=== PATIENT | female | born 1955 | race Caucasian/White ===

== ENCOUNTER → 2019-07-04 08:53 | Outpatient (CLI) | payer OTHER, SELFPAY ==
[2019-07-04 09:32] LABS: Add Manual Diff / Slide Review NO; Basophils Absolute Auto 0 /uL (0-100); Basophils Percent Auto 0.8 % (0-2); Eosinophils Absolute Auto 0 /uL (0-450); Eosinophils Percent Auto 0.6 % (2-4); Hemoglobin 13.6 g/dL (12.0-16.0); Lymphocytes Absolute Auto 1100 /uL (1100-4500); Lymphocytes Percent Auto 28.5 % (25-40); Mean Corpuscular HGB Conc 34.9 % (30-36); Mean Corpuscular Hemoglobin 31.2 PG (26-34); Mean Corpuscular Volume 89.3 fL (80-100); Monocytes Absolute Auto 400 /uL (0-900); Monocytes Percent Auto 9.7 % (3-14); Neutrophils Absolute Auto 2300 /uL (1500-7000); Neutrophils Percent Auto 60.4 % (50-75); Platelet Count 128 X10^3/uL (150-400); Red Blood Cell Count 4.37 X10^6/uL (4.0-5.2); Red Cell Distribution Width 12.6 % (11.6-14.8); White Blood Cell Count 3.9 X10^3/uL (4.5-11.0)
[2019-07-04 09:46] LABS: Alanine Aminotransferase 28 IU/L (<35); Albumin 4.3 g/dL (3.5-5.0); Albumin Globulin Ratio 1.5 (1.0-2.8); Alkaline Phosphatase 52 U/L (38-126); Aspartate Aminotransferase 42 IU/L (14-36); BUN Creatinine Ratio 18.6 (6-22); Bilirubin Total 1.5 mg/dL (0.2-1.3); Blood Urea Nitrogen 13 mg/dL (7-17); Carbon Dioxide 27 mmol/L (22-32); Chloride 103 mmol/L (98-107); Cholesterol 168 mg/dL (140-199); Estimated Glomerular Filt Rate > 60.0 mL/min (>60); Globulin 2.9 g/dL (1.7-4.1); Glucose 88 mg/dL (80-110); HDL Cholesterol 47 mg/dL (40-60); HEMOLYSIS < 15 (0-50); LDL Cholesterol Calculated 111 mg/dL (<100); Potassium 3.7 mmol/L (3.4-5.1); Sodium 140 mmol/L (137-145); Total Protein 7.2 g/dL (6.3-8.2); Triglycerides 49 mg/dL (35-150)
== END ==
PROVIDERS: PCP Family Medicine; Referring Provider Family Medicine; Visit Provider Family Medicine
DX: Z12.11 Encounter for screening for malignant neoplasm of colon (principal); Z13.220 Encounter for screening for lipoid disorders; E55.9 Vitamin D deficiency, unspecified; E80.6 Other disorders of bilirubin metabolism
CPT/HCPCS: 36415; 80053; 80061; 82306; 84443; 85025

== ENCOUNTER → 2019-07-07 13:19 | Outpatient (CLI) | payer OTHER, SELFPAY ==
[2019-07-10 21:44] LABS: Fecal Immunochemical Test NOT DETECTED (NOT DETECTED)
== END ==
PROVIDERS: PCP Family Medicine; Referring Provider Family Medicine; Visit Provider Family Medicine
DX: Z12.11 Encounter for screening for malignant neoplasm of colon (principal); Z13.220 Encounter for screening for lipoid disorders; E55.9 Vitamin D deficiency, unspecified; E80.6 Other disorders of bilirubin metabolism
CPT/HCPCS: 82274

== ENCOUNTER → 2020-08-28 14:25 | Outpatient (CLI) | payer OTHER, SELFPAY ==
[2020-08-28] MEDS: COVID-19 VACC #1, MRNA(MOD) 100 MCG/0.5 ML VIAL IM (14:32)
== END ==
PROVIDERS: PCP Family Medicine; Visit Provider Internal Medicine
DX: Z23 Encounter for immunization (principal)
CPT/HCPCS: 0011A; 91301

== ENCOUNTER → 2020-09-25 14:34 | Outpatient (CLI) | payer OTHER, SELFPAY ==
[2020-09-25] MEDS: COVID-19 VACC #2, MRNA(MOD) 100 MCG/0.5 ML VIAL IM (14:45)
== END ==
PROVIDERS: PCP Family Medicine; Visit Provider Internal Medicine
DX: Z23 Encounter for immunization (principal)
CPT/HCPCS: 0012A; 91301

== ENCOUNTER → 2021-01-27 14:15 | Outpatient (CLI) | payer OTHER, SELFPAY ==
[2021-01-27 17:32] LABS: COVID19 -Nasal RAPID Negative (Negative)
== END ==
PROVIDERS: PCP Family Medicine; Visit Provider Physician Assistant
DX: Z20.822 Contact with and (suspected) exposure to COVID-19 (principal)
CPT/HCPCS: 87635

== ENCOUNTER → 2021-11-18 08:30 | Outpatient (CLI) | payer MEDICARE, OTHER, SELFPAY ==
[2021-11-18 09:20] LABS: Add Manual Diff / Slide Review NO; Basophils Absolute Auto 0 /uL (0-100); Basophils Percent Auto 0.5 % (0-2); Eosinophils Absolute Auto 0 /uL (0-450); Eosinophils Percent Auto 0.9 % (2-4); Hematocrit 39.6 % (36-46); Hemoglobin 13.8 g/dL (12.0-16.0); Lymphocytes Absolute Auto 1100 /uL (1100-4500); Lymphocytes Percent Auto 21.4 % (25-40); Mean Corpuscular HGB Conc 34.9 % (30-36); Mean Corpuscular Hemoglobin 31.4 PG (26-34); Mean Corpuscular Volume 89.8 fL (80-100); Monocytes Absolute Auto 400 /uL (0-900); Monocytes Percent Auto 8.4 % (3-14); Neutrophils Absolute Auto 3500 /uL (1500-7000); Neutrophils Percent Auto 68.8 % (50-75); Platelet Count 123 X10^3/uL (150-400); Red Blood Cell Count 4.41 X10^6/uL (4.0-5.2); Red Cell Distribution Width 12.4 % (11.6-14.8)
[2021-11-18 09:58] LABS: Alanine Aminotransferase 23 IU/L (<35); Albumin 4.4 g/dL (3.5-5.0); Albumin Globulin Ratio 1.8 (1.0-2.8); Alkaline Phosphatase 49 U/L (38-126); Aspartate Aminotransferase 37 IU/L (14-36); BUN Creatinine Ratio 23.2 (6-22); Bilirubin Total 1.1 mg/dL (0.2-1.3); Blood Urea Nitrogen 16 mg/dL (7-17); Calcium 8.7 mg/dL (8.4-10.2); Carbon Dioxide 27 mmol/L (22-32); Chloride 104 mmol/L (98-107); Cholesterol 180 mg/dL (140-199); Estimated Glomerular Filt Rate > 60 mL/min (>60); Globulin 2.5 g/dL (1.7-4.1); Glucose 96 mg/dL (80-110); HDL Cholesterol 57 mg/dL (40-60); HEMOLYSIS < 15 (0-50); LDL Cholesterol Calculated 112 mg/dL (<100); Potassium 4.1 mmol/L (3.4-5.1); Sodium 139 mmol/L (137-145); Total Protein 6.9 g/dL (6.3-8.2); Triglycerides 56 mg/dL (35-150)
[2021-11-18 10:12] LABS: Vitamin D 25 Hydroxy (D3) 66.2 ng/mL (30.0-100.0)
[2021-11-18 13:00] LABS: Free T3, Triiodothyronine Free 3.53 pg/mL (2.77-5.27); Free T4, Direct Thyroxine 0.96 ng/dL (0.78-2.19)
[2021-11-18 13:13] LABS: Thyroid Stimulating Hormone 3.26 uIU/mL (0.47-4.68)
== END ==
PROVIDERS: PCP Nurse Practitioner; Referring Provider Nurse Practitioner; Visit Provider Nurse Practitioner
DX: Z00.00 Encounter for general adult medical examination without abnormal findings (principal); E80.6 Other disorders of bilirubin metabolism; Z13.29 Encounter for screening for other suspected endocrine disorder; E56.9 Vitamin deficiency, unspecified; Z13.220 Encounter for screening for lipoid disorders; Z86.39 Personal history of other endocrine, nutritional and metabolic disease; E78.5 Hyperlipidemia, unspecified
CPT/HCPCS: 36415; 80053; 80061; 82306; 84439; 84443; 84481; 85025

== ENCOUNTER → 2021-12-25 08:08 | Outpatient (CLI) | payer MEDICARE, OTHER, SELFPAY ==
--- NOTE | 2021-12-25 08:12 | DI.MG.S_ITS ---
BILATERAL DIGITAL SCREENING MAMMOGRAM 3D/2D WITH CAD: 12/25/2021 CLINICAL: Routine screening. No prior exams were available for comparison. The tissue of both breasts is heterogeneously dense. This may lower the sensitivity of mammography. Current study was also evaluated with a Computer Aided Detection (CAD) system. No significant masses, calcifications, or other findings are seen in either breast. IMPRESSION: NEGATIVE There is no mammographic evidence of malignancy. A 1 year screening mammogram is recommended. Based on the Tyrer Cuzick model (a risk assessment model) the patient's lifetime risk is 8.3% and her 10 year risk is 4.0%. According to the ACR, ACS, and NCCN guidelines, an annual breast MRI exam along with mammogram is recommended if the patient's lifetime risk is 20% or greater. This exam was interpreted at Station ID: [id number]. NOTE: For mammograms, a report in lay terms will be sent to the patient. Approximately 15% of breast malignancies will not be visualized mammographically. In the management of a palpable breast mass, a negative mammogram must not discourage biopsy of a clinically suspicious lesion. Electronically Signed By: Madison centeno/luciano:12/25/2021 11:39:15 letter sent: Normal Exam ACR BI-RADS Category 1: Negative 3341F
== END ==
PROVIDERS: PCP Nurse Practitioner; Referring Provider Nurse Practitioner; Visit Provider Nurse Practitioner
DX: Z12.31 Encounter for screening mammogram for malignant neoplasm of breast (principal)
CPT/HCPCS: 77063; 77067

== ENCOUNTER → 2022-01-14 07:39 | Outpatient (CLI) | payer MEDICARE, OTHER, SELFPAY ==
[2022-01-14 08:43] LABS: Alanine Aminotransferase 17 IU/L (<35); Albumin Globulin Ratio 1.7 (1.0-2.8); Alkaline Phosphatase 55 U/L (38-126); Aspartate Aminotransferase 29 IU/L (14-36); Bilirubin Total 0.8 mg/dL (0.2-1.3); Bilirubin Unconjugated 0.9 mg/dL (0.0-1.1); Globulin 2.4 g/dL (1.7-4.1); HEMOLYSIS < 15 (0-50); Total Protein 6.4 g/dL (6.3-8.2)
== END ==
PROVIDERS: PCP Nurse Practitioner; Referring Provider Nurse Practitioner; Visit Provider Nurse Practitioner
DX: E80.4 Gilbert syndrome (principal); R79.89 Other specified abnormal findings of blood chemistry
CPT/HCPCS: 36415; 80076

== ENCOUNTER → 2022-03-09 09:13 | Outpatient (CLI) | payer MEDICARE, OTHER, SELFPAY ==
[2022-03-09 12:32] LABS: COVID19 -Nasal RAPID Negative (Negative)
== END ==
PROVIDERS: PCP Nurse Practitioner; Visit Provider Surgery
DX: Z20.822 Contact with and (suspected) exposure to COVID-19 (principal); Z01.812 Encounter for preprocedural laboratory examination
CPT/HCPCS: 87635; C9803

== ENCOUNTER 2022-03-10 09:01 | Day surgery (SDC) | payer MEDICARE, OTHER, SELFPAY ==
[2022-03-10 09:16] VITALS: BP 129/79; PULSE 60; RESP 16; TEMP 36.6; O2SAT 99; BMI 22.6
--- NOTE | 2022-03-10 09:57 | PM.HP.1 ---
History of Present Illness History of Present Illness Date Patient Seen: 03/10/22 Time Patient Seen: 09:57 Chief complaint: SDC Narrative: The patient presents for colorectal screening. She had previously normal colonoscopy 17 years ago. No personal or family history of colon cancer. On further history denies any recent gastrointestinal symptoms. No nausea, vomiting, abdominal pain, loss of appetite, unexplained weight loss, change in bowel habits, diarrhea, constipation, melena, hematochezia, or bright red blood per rectum. Patient History Medical History De Quervain's fracture of right wrist (~2017) Elevated LDL cholesterol level Gilbert syndrome Gluten intolerance History of gluten sensitivity Hyperbilirubinemia Plantar warts (~2018) Post herpetic neuralgia (12/2019) Screening for breast cancer Screening for hyperlipidemia Screening for thyroid disorder Thrombocytopenia Vitamin deficiency, unspecified Surgical History Anesthesia H/O section (~1981) H/O knee surgery (~1991) Tibia fracture (~2010) Family & Social History Family History Father Hyperlipidemia CAD (coronary artery disease) Diabetes mellitus Mother COPD (chronic obstructive pulmonary disease) Stroke Dementia Sister History of heart disease Social History: household members spouse Tobacco & Substance use: Smoking Status Never smoker alcohol intake current alcohol intake frequency a few times a month Substance Use Type marijuana Meds Home Medications and Allergies Home Medications Medication Instructions Recorded Confirmed Type multivitamin 1 tab PO DAILY 06/20/19 03/10/22 History Estriol 1mg Vaginal Yumiko See Rx Instructions .Route 01/26/22 03/10/22 Rx .COMPLEX #30 ea sodium,potassium,mag sulfates 17.5 See Rx Instructions PO .COMPLEX 02/23/22 Rx gram-3.13 gram-1.6 gram oral soln #354 mL (Suprep Bowel Prep Kit) Allergies Allergy/AdvReac Type Severity Reaction Status Date / Time No Known Drug Allergies Allergy Verified 03/10/22 09:30 Exam Vital Signs (past 8 hours): - 03/10/22 09:16 Temperature 97.8 F Pulse Rate 60 Respiratory Rate 16 Blood Pressure 129/79 Pulse Oximetry 99 Oxygen Delivery Method Room Air Oxygen Delivery Method Room Air Narrative Exam Narrative: General adult woman alert oriented no acute distress Chest nonlabored respiration Assessment & Plan Assessment & Plan narrative: The patient requires colorectal screening and colonoscopy is recommended. Technical details were discussed. Risks, benefits, alternatives explained. Risks including but not limited to myocardial infarction, aspiration, bleeding, pain, missed lesion, incomplete examination, need for further radiographic studies, colonic perforation, and need for major abdominal surgery were discussed. All questions were answered to their satisfaction, and they are in agreement with this plan. Time Spent With Patient Critical Care time: I spent a total of [] minutes of critical care time on this patient's care today; this time is exclusive of procedural time.
[2022-03-10] MEDS: MIDAZOLAM 5 MG/5 ML VIAL IV (10:27)
[2022-03-10] MEDS: fentaNYL 100 MCG/2 ML INJ 150 MCG IV (10:27)
--- NOTE | 2022-03-10 10:44 | P.OP.COLON_ITS ---
Operative Date/Time/Diagnoses Date of procedure: 03/10/22 Time of procedure: 10:44 Pre-op diagnosis: Screening Post-op diagnosis: same Procedure & Clinicians Study performed: Colonoscopy Same procedure as scheduled: Yes Indications: Screening Surgeon: Isra Little Procedure Notes Procedure in detail: Medications: Conscious sedation using 5 mg IV midazolam and 150 mcg IV of fentanyl The history and physical was performed/updated and the patient is ASA class is 1. The procedure was discussed in detail with the patient. Potential risks complications including infection, bleeding, missed diagnosis, perforation, need for surgery, and were explained. Their questions were answered and informed consent was obtained. Patient was brought to the procedure room and placed standard monitoring equipment. The patient's vital signs were monitored continuously throughout the entire procedure. Prior to starting time-out was performed. The patient was placed in the left lateral recumbent position. Procedural sedation was adminis tered. Examination began with a thorough inspection of the perianal area there was no evidence of fissures, fistulae, external hemorrhoids or cutaneous malignancy. The colonoscopy scope was then placed into the anal canal and was advanced to the cecum, which was identified by the ileocecal valve, the appendiceal orifice and the confluence of the taenia. The scope was then slowly withdrawn examining colon thoroughly in all directions, irrigating it of any residual stool. FINDINGS 1. No masses or polyps 2. Sigmoid-diverticulosis mild 3. Internal hemorrhoids The patient tolerated the procedure well. They will be discharged once criteria are met. The prep was of good/excellent quality. The withdrawl time was 6 minutes. The sedation time was 22 minutes. Specimen(s): none sent Complications: none Impression: Normal colon Post-procedure Recommendations: Colonoscopy in 10 years and High fiber diet Disposition: same day surgery
[2022-03-10 10:48] VITALS: BP 96/68; PULSE 53; RESP 18; TEMP 36.2; O2SAT 100
[2022-03-10 10:52] VITALS: BP 104/66; PULSE 54; RESP 10; O2SAT 100
[2022-03-10 10:57] VITALS: BP 99/69; PULSE 63; RESP 12; O2SAT 100
[2022-03-10 11:00] VITALS: BP 104/69; PULSE 63; RESP 16; TEMP 36.1; O2SAT 99
== END 2022-03-10 11:13 | disposition home or self-care (01) ==
PROVIDERS: PCP Nurse Practitioner; Referring Provider Surgery; Visit Provider Surgery
PROC: 0DJD8ZZ Inspection of Lower Intestinal Tract, Via Natural or Artificial Opening Endoscopic (ICD-10-PCS; CPT 45378; principal; 2022-03-10 10:00)
DX: Z12.11 Encounter for screening for malignant neoplasm of colon (principal); K57.30 Diverticulosis of large intestine without perforation or abscess without bleeding; K64.8 Other hemorrhoids
CPT/HCPCS: G0121; 99152; J2250; J3010

== ENCOUNTER → 2022-06-22 15:28 | Outpatient (CLI) | payer MEDICARE, OTHER, SELFPAY | PROVIDERS: PCP Nurse Practitioner; Referring Provider Nurse Practitioner; Visit Provider Nurse Practitioner | DX: Z13.820 Encounter for screening for osteoporosis (principal); Z78.0 Asymptomatic menopausal state; M85.851 Other specified disorders of bone density and structure, right thigh | CPT/HCPCS: 77080 ==

== ENCOUNTER → 2022-07-06 11:04 | Outpatient (CLI) | payer MEDICARE, OTHER, SELFPAY ==
[2022-07-06 19:28] LABS: Hep C Virus Ab w/Reflex Quant NEGATIVE s/c (NEGATIVE)
== END ==
PROVIDERS: PCP Nurse Practitioner; Referring Provider Nurse Practitioner; Visit Provider Nurse Practitioner
DX: Z11.59 Encounter for screening for other viral diseases (principal)
CPT/HCPCS: 36415; 86803

== ENCOUNTER → 2022-10-05 12:30 | Outpatient (CLI) | payer MEDICARE, OTHER, SELFPAY | PROVIDERS: PCP Nurse Practitioner; Visit Provider Nurse Practitioner Family | DX: J02.9 Acute pharyngitis, unspecified (principal) | CPT/HCPCS: 87070 ==

== ENCOUNTER → 2023-01-25 07:39 | Outpatient (CLI) | payer MEDICARE, OTHER, SELFPAY ==
--- NOTE | 2023-01-25 07:40 | DI.MG.S_ITS ---
BILATERAL DIGITAL SCREENING MAMMOGRAM 3D/2D WITH CAD: 01/25/2023 CLINICAL: Routine screening. Comparison is made to exam dated: 12/25/2021 mammogram - [facility]. Both breasts are heterogeneously dense, which may obscure small masses (category c / 51-75% glandular tissue). Current study was also evaluated with a Computer Aided Detection (CAD) system. No significant masses, calcifications, or other findings are seen in either breast. There has been no significant interval change. IMPRESSION: NEGATIVE There is no mammographic evidence of malignancy. A 1 year screening mammogram is recommended. Based on the Tyrer Cuzick model (a risk assessment model) the patient's lifetime risk is 7.9% and her 10 year risk is 4.0%. According to the ACR, ACS, and NCCN guidelines, an annual breast MRI exam along with mammogram is recommended if the patient's lifetime risk is 20% or greater. This exam was interpreted at Station ID: [id number]. NOTE: For mammograms, a report in lay terms will be sent to the patient. Approximately 15% of breast malignancies will not be visualized mammographically. In the management of a palpable breast mass, a negative mammogram must not discourage biopsy of a clinically suspicious lesion. Electronically Signed By: Hari patino/luciano:01/25/2023 17:54:51 letter sent: Normal Exam ACR BI-RADS Category 1: Negative 3341F
== END ==
PROVIDERS: PCP Nurse Practitioner; Referring Provider Nurse Practitioner; Visit Provider Nurse Practitioner
DX: Z12.31 Encounter for screening mammogram for malignant neoplasm of breast (principal)
CPT/HCPCS: 77063; 77067

== ENCOUNTER 2023-02-03 17:05 | Emergency (ER) | payer MEDICARE, OTHER, SELFPAY ==
[2023-02-03 17:08] VITALS: BP 164/80; PULSE 60; RESP 18; TEMP 36.7; O2SAT 99; BMI 23.3
--- NOTE | 2023-02-03 17:12 | DI.RAD.S_ITS ---
PROCEDURE: XR KNEE LT 3V INDICATIONS: injury/pain TECHNIQUE: 3 views of the knee were acquired. COMPARISON: None. FINDINGS: Bones: Postsurgical changes of the tibia with 2 screws present. Hardware appears intact. No definite acute fracture or dislocation identified. Soft tissues: No joint effusion. No suspicious soft tissue calcifications. IMPRESSION: No acute fracture identified. If symptoms persist, follow-up radiographs and/or CT may be helpful for further evaluation. Dictated by: Silvio Parmar M.D. on 02/03/2023 at 18:05 Approved by: Silvio Parmar M.D. on 02/03/2023 at 18:06
== END 2023-02-03 19:22 | disposition left against medical advice (07) ==
PROVIDERS: Emergency Provider Emergency Medicine; PCP Nurse Practitioner
DX: S89.91XA Unspecified injury of right lower leg, initial encounter (principal); W13.8XXA Fall from, out of or through other building or structure, initial encounter
CPT/HCPCS: 73562; 99283

== ENCOUNTER → 2023-06-21 08:26 | Outpatient (CLI) | payer MEDICARE, OTHER, SELFPAY ==
[2023-06-21 09:11] LABS: Add Manual Diff / Slide Review NO; Basophils Absolute Auto 0 /uL (0-100); Basophils Percent Auto 0.9 % (0-2); Eosinophils Absolute Auto 0 /uL (0-450); Eosinophils Percent Auto 0.7 % (2-4); Hemoglobin 14.2 g/dL (12.0-16.0); Lymphocytes Absolute Auto 1500 /uL (1100-4500); Lymphocytes Percent Auto 34.3 % (25-40); Mean Corpuscular HGB Conc 34.6 % (30-36); Mean Corpuscular Hemoglobin 31.5 PG (26-34); Mean Corpuscular Volume 90.9 fL (80-100); Monocytes Absolute Auto 400 /uL (0-900); Monocytes Percent Auto 9.9 % (3-14); Neutrophils Absolute Auto 2300 /uL (1500-7000); Neutrophils Percent Auto 54.2 % (50-75); Platelet Count 138 X10^3/uL (150-400); Red Blood Cell Count 4.51 X10^6/uL (4.0-5.2); Red Cell Distribution Width 11.9 % (11.6-14.8); White Blood Cell Count 4.3 X10^3/uL (4.5-11.0)
[2023-06-21 09:28] LABS: Alanine Aminotransferase 25 IU/L (<35); Albumin 4.3 g/dL (3.5-5.0); Albumin Globulin Ratio 1.5 (1.0-2.8); Alkaline Phosphatase 35 U/L (38-126); Aspartate Aminotransferase 34 IU/L (14-36); BUN Creatinine Ratio 28.4 (6-22); Bilirubin Total 0.9 mg/dL (0.2-1.3); Blood Urea Nitrogen 19 mg/dL (7-17); Calcium 9.3 mg/dL (8.4-10.2); Carbon Dioxide 28 mmol/L (22-32); Chloride 103 mmol/L (98-107); Cholesterol 173 mg/dL (140-199); Estimated Glomerular Filt Rate > 60 mL/min (>60); Globulin 2.9 g/dL (1.7-4.1); Glucose 94 mg/dL (80-110); HDL Cholesterol 55 mg/dL (40-60); HEMOLYSIS < 15 (0-50); LDL Cholesterol Calculated 110 mg/dL (<100); Potassium 4.3 mmol/L (3.4-5.1); Sodium 138 mmol/L (137-145); Total Protein 7.2 g/dL (6.3-8.2); Triglycerides 42 mg/dL (35-150)
[2023-06-21 09:51] LABS: Free T3, Triiodothyronine Free 3.35 pg/mL (2.77-5.27)
[2023-06-21 10:05] LABS: Thyroid Stimulating Hormone 6.66 uIU/mL (0.47-4.68)
== END ==
PROVIDERS: Family Provider Nurse Practitioner; PCP Nurse Practitioner; Referring Provider Nurse Practitioner; Visit Provider Nurse Practitioner
DX: I73.01 Raynaud's syndrome with gangrene (principal); E78.00 Pure hypercholesterolemia, unspecified; M85.80 Other specified disorders of bone density and structure, unspecified site; E80.4 Gilbert syndrome; D69.6 Thrombocytopenia, unspecified; R79.89 Other specified abnormal findings of blood chemistry; Z79.899 Other long term (current) drug therapy
CPT/HCPCS: 36415; 80053; 80061; 84439; 84443; 84481; 85025

== ENCOUNTER 2023-07-26 08:15 | Outpatient (RCR) | payer MEDICARE, OTHER, SELFPAY ==
--- NOTE | 2023-06-01 15:58 | PT.OIE ---
Current Diagnoses Synovial cyst of popliteal space [Gauthier], unspecified knee (06/01/23) Strain of unspecified muscle(s) and tendon(s) at lower leg level, left leg, initial encounter (06/01/23) Past Medical History (Last Updated 07/09/22 @ 08:58 by CORDELL Nassar) De Quervain's fracture of right wrist (~2017) Elevated LDL cholesterol level Gilbert syndrome Gluten intolerance History of gluten sensitivity Hyperbilirubinemia Osteopenia determined by x-ray Plantar warts (~2018) Post herpetic neuralgia (12/2019) Postmenopausal HRT (hormone replacement therapy) Raynaud's disease with gangrene Screening for breast cancer Screening for hyperlipidemia Screening for thyroid disorder Thrombocytopenia Vitamin deficiency, unspecified Past Surgical History (Last Reviewed 07/09/22 @ 08:39 by CORDELL Nassar) Anesthesia H/O section (~1981) H/O knee surgery (~1991) Tibia fracture (~2010) Visit Care Team Role Provider Type CORDELL Nassar Family Provider Advanced Tectonophysicist Primary Care Provider Specialty: Family Practice Address: [address] [place] [address] Email: [email or web address] Yvonne Blanca PA-C Attending Provider Advanced Tectonophysicist Referring Provider Specialty: Medical Wound Care Address: [address] [place] [address], [facility] Email: [email or web address] Physical Therapy Initial Evaluation PT-OP-A Visit Information Start: 06/01/23 10:31 Freq: Status: Active Protocol: Document 06/01/23 10:31 NM (Rec: 06/01/23 11:18 NM [id number]) Out-Patient Physical Therapy Visit Information Visit Information Visit Type Initial Evaluation Visit Note KX modifier after 19 ST/PT visit Visit Start Time 10:30 Visit Stop Time 11:15 Total Visit Minutes 45 Visit Number 1 Evaluation Information Evaluation Date 06/01/23 PT-OP-B Current Condition Start: 06/01/23 10:31 Freq: Status: Active Protocol: Document 06/01/23 10:31 NM (Rec: 06/01/23 11:18 NM [id number]) Current Condition History of Current Condition Onset Date January 2023 Current Complaints L knee History of Current Condition Pt was working with her horse, when he got spooked. She jumped off the mounting block, landing on her L knee in standing. She felt off a pop on her L knee (landed on her feet) on the lateral side, with a varus force. It was swollen and she had limited weight bearing. Came to ED ( did x ray) in January, was given a knee ext brace to wear temporarily, which pt has not been wearing since January. She reports that her pain is intermittent but she still gets occasional pain laterally . She has worse pain walking down hill, unable to run (2 mi /day); she is able to run along side her horse but reports pain. Generally, she reports no pain overall, except in coming to stand is difficult from a squat. Reports popping with knee ext. She reports no instances of her knee buckling or giving out, but does report that sometimes her knee feels like it could. Prior Treatments and Tests L knee PMH: partial ACL tear ( still partial tear), meniscus bucket handle tear (repair), tibial plateau frx with screws ; gauthier's cyst (previous swollen) Radiographs 02/03/23: no acute fracture; no MRI performed Prior Functional Status Baseline Function- ADL's Independent Baseline Function- Mobility Independent Baseline Function- Gait run 2 mi/day (6-8 mi/wk) Baseline Function- Recreation/Hobbies Rides horses Current Functional Impairments (Reported) Functional Limitations- Mobility/Gait unable to run, walk down hills , landing on LLE Functional Limitations- Recreation/ Able to ride horses but must Hobbies dismount on R knee PT-OP-C Subjective Start: 06/01/23 10:31 Freq: Status: Active Protocol: Document 06/01/23 10:31 NM (Rec: 06/01/23 11:18 NM [id number]) OP-PT Subjective Patient Comments Patient Comments see hx above for pt report Patient Questionnaires Lower Extremity Functional Scale LEFS Score 68/80 OP-PT Pain Assessment Pain Assessment Grid Paper Pain Assessment Grid Completed Yes Location L knee Pain Location Details ant knee pain, lateral knee pain Intensity 2 Scale Used Numeric (0 - 10) Description Aching,Dull,Sharp Frequency Intermittent Pain Duration decreased freq since initial injury Radiating Location none, remains local Pain Aggravating Factors ADL's,Activity,Walking,Stair Climbing Pain Alleviating Factors Cold,Heat Other Pain Alleviating Factors patellar tendon brace Home Pain Medication Use Pain Medications Used No PT-OP-E Functional Tests Start: 06/01/23 10:31 Freq: Status: Active Protocol: Document 06/01/23 10:31 NM (Rec: 06/01/23 11:18 NM [id number]) Functional Tests Squat Test Score 10 B squats Comments able to perform deep squat but min pain, knee valgus, heels rise Single Leg Squat Test Score x1 LLE (RLE minimal valgus, better stability, no opposite hip drop) Comment no knee pain reported, demos knee valgus, foot pronation, R hip drop Other Single Leg Stance Score 25 sec LLE Comment demos valgus, mod instability at ankle (RLE 5 sec, more unstable) PT-OP-F Manual Assessment Start: 06/01/23 10:31 Freq: Status: Active Protocol: Document 06/01/23 10:31 NM (Rec: 06/01/23 11:18 NM [id number]) Manual Assessments Soft Tissue Assessment Soft Tissue Mobility Assessment Demos tenderness at posterior knee (hx of gauthier's cyst) with slight, palpable bulge. Joint Mobility Assessment Joint Mobility Assessment No valgus instability, minimal varus instability compared to R knee. Tenderness of L knee lateral joint line. Demos palpable/audible clicking with flexion/extension. No anterior or posterior instability of L knee, comparable to R knee. PT-OP-G Mobility & Gait Start: 06/01/23 10:31 Freq: Status: Active Protocol: Document 06/01/23 10:31 NM (Rec: 06/01/23 11:18 NM [id number]) OP Gait Assessment Comments Gait Comments antalgic Stair Climbing Evaluation Comments Stair Climbing Comments Eccentric control of LLE decreased compared to RLE. Demos mild knee valgus with foot pronation with descent and decreased quad control. PT-OP-H Neuro Start: 06/01/23 10:31 Freq: Status: Active Protocol: Document 06/01/23 10:31 NM (Rec: 06/01/23 11:18 NM [id number]) Sensation Evaluation Gross Sensation Gross Sensation Left LE Impaired Comments Summary Comments Pt demos slightly decreased sensation along L side in L3-4 dermatomes compared to RLE. Intact but decreased PT-OP-J Posture/Palpation/Skin Start: 06/01/23 10:31 Freq: Status: Active Protocol: Document 06/01/23 10:31 NM (Rec: 06/01/23 11:18 NM [id number]) Posture Evaluation Position Standing Evaluation View Anterior Pelvis Posture Neutral Weight Distribution Weight Shifted Right Knee Posture (L) Neutral,(R) Neutral Palpation Assessment Location L knee Palpation Location posterior knee, lateral knee, anterior knee Palpation Findings Soft Tissue Tightness,Muscle Guarding,Tenderness Palpation Details Tenderness along ant knee at patellar tendon, minimal tenderness along lateral joint line. No tenderness along medial joint line. Min tenderness and palpable bulge behind L knee PT-OP-K Range of Motion Start: 06/01/23 10:31 Freq: Status: Active Protocol: Document 06/01/23 10:31 NM (Rec: 06/01/23 11:18 NM [id number]) Hip Goniometric Range of Motion Hip Left Flexion w/Knee Flexed 110 Abduction 25 Internal Rotation 25 External Rotation 30 Right Flexion w/Knee Flexed 100 Abduction 25 Internal Rotation 25 External Rotation 30 Knee Goniometric Range of Motion Knee Left Knee ROM WFL Yes Patient Position Supine Flexion Active (degrees) 130 Flexion Passive (degrees) 135 Extension Active (degrees) 5 Extension Passive (degrees) 0 Comments pain with flex and ext, anahi quad set. Pain with overpressure into flex and ext Right Knee ROM WFL Yes Patient Position Supine Flexion Active (degrees) 130 Flexion Passive (degrees) 140 Extension Active (degrees) 0 Extension Passive (degrees) 2 PT-OP-L Special Tests Start: 06/01/23 10:31 Freq: Status: Active Protocol: Document 06/01/23 10:31 NM (Rec: 06/01/23 11:18 NM [id number]) Special Tests Knee Special Tests Posterior Draw Test Results negative Comments no excessive tibial translation Varus- 25 Degrees Test Results positive Comments minimal translation compared to RLE, no pain reported Varus- 0 Degrees Test Results negative Comments no excessive translation Valgus- 25 Degrees Test Results negative Comments no excessive translation Valgus- 0 Degrees Test Results negative Comments no excessive translation Thessaly Test 20 Degrees Test Results positive (L) Comments reproduces pain and catching in L knee Thessaly Test 5 Degrees Test Results positive (L) Comments reproduces pain and catching in L knee Farshad Test Test Results positive (L) Comments palpable and audible clicking Javed's Test Results negative Comments no excessive tibial translation Anterior Draw Test Results negative Comments no excessive tibial motion PT-OP-M Strength Start: 06/01/23 10:31 Freq: Status: Active Protocol: Document 06/01/23 10:31 NM (Rec: 06/01/23 11:18 NM [id number]) Hip Strength Hip Manual Muscle Testing Left Flexion (L2) 4 Good Extension (S1) 4+ Good+ Abduction 4+ Good+ Adduction 4+ Good+ External Rotation 4+ Good+ Internal Rotation 4+ Good+ Right Flexion (L2) 4 Good Extension (S1) 4+ Good+ Abduction 4+ Good+ Adduction 4+ Good+ External Rotation 4+ Good+ Internal Rotation 4+ Good+ Knee Strength Knee Manual Muscle Testing Right Flexion (S2) 4+ Good+ Extension (L3) 4- Good- Left Flexion (S2) 4- Good- Extension (L3) 4- Good- Comments Extension reproduces pain in posterior knee PT-OP-T Assessment and Plan Start: 06/01/23 10:31 Freq: Status: Active Protocol: Document 06/01/23 10:31 NM (Rec: 06/01/23 11:18 NM [id number]) Physical Therapy Assessment Rehab Potential Rehabilitation Potential Good Evaluation Complexity Number of Personal Factors/Comorbidities 1-2 Number of Body Systems Impaired 1-2 Clinical Presentation at Evaluation Stable Impairments Impairments Activity Tolerance,Balance, Coordination,Functional Activities,Functional Mobility ,Gait,Pain,Posture,ROM, Sensation,Soft Tissue Mobility ,Strength Goals Six Impairment strength, function Short Term Goal (STG) Pt will demonstrate improved eccentric control with eccentric step downs for at least 5 reps with <2/10 pain in order to demonstrate improved quad control, hip strength, and activity tolerance. Group Home Goal (LTG) Pt will demonstrate improved eccentric control with eccentric step downs for at least 10 reps with <2/10 pain in order to demonstrate improved quad control, hip strength, and activity tolerance. LTG Duration 8 weeks Five Impairment strength Short Term Goal (STG) Pt will be able to perform at least 1 rep of single leg squats using good form and without knee valgus compensation in order to demonstrate improved quad control and hip strength for return to running. STG Duration 4 weeks Cnc Milling Machine Operator Goal (LTG) Pt will be able to perform at least 3 rep of single leg squats using good form and without knee valgus compensation in order to demonstrate improved quad control and hip strength for return to running. LTG Duration 8 weeks Four Impairment strength, function Short Term Goal (STG) Pt will demonstrate equal bilateral squats x5 reps without compensation in order to show improved L knee ROM, strength, and tolerance for ADLs. STG Duration 4 weeks Group Home Goal (LTG) Pt will demonstrate equal bilateral squats x10 reps without compensation in order to show improved L knee ROM, strength, and tolerance for ADLs. LTG Duration 8 weeks Three Impairment strength Short Term Goal (STG) Pt will improve L knee flex and ext MMT score to at least 4/5 in order to demonstrate improved strength required for ambulation, running, and stairs. STG Duration 4 weeks Cnc Milling Machine Operator Goal (LTG) Pt will improve L knee flex and ext MMT score to at least 4+/5 in order to demonstrate improved strength required for ambulation, running, and stairs. LTG Duration 8 weeks Two Impairment ROM Group Home Goal (LTG) Pt will increase L knee ext AROM to within 3 degrees of R knee extension for improved terminal knee extension during gait. LTG Duration 8 weeks One Impairment function Impairment LEFS: 68/80 Group Home Goal (LTG) Pt will increase LEFS score by at least 9 points (MCID) in order to demonstrate improved L knee function, ADL tolerance . LTG Duration 8 weeks Assessment Summary Assessment Pt is a 67 y.o. female presenting with L knee pain after jumping from a horse. Pt has normal L knee flexion ROM and minimal limitations in L knee extension ROM. Her L knee strength is decreased compared to RLE. Pt has a palpable bulge posterior to L knee which is consistent with dx of gauthier's cyst. Pt demos mild varus instability of L knee and has palpable clicking with knee flex/ext during Thessaly's and Farshad test. Pt has not had an MRI, but would likely benefit from a referral to ortho depending on progression with PT and due to hx of previous injuries to same knee. Pt would benefit from skilled PT to address limitations in L knee strength and ROM, gait, balance, education about postural mechanics in order to improve symptom management and return to PLOF. Physical Therapy Plan Frequency and Duration Frequency of Treatment 2x/Week Duration of treatment (weeks) 8 Plan of Care Start Date 06/01/23 Plan of Care End Date 07/27/23 Therapeutic Interventions Therapeutic Interventions Balance Training,Coordination Training,Gait Training,Home Exercise Program,Joint Mobilizations,Manual Therapy, Neuromuscular Re-education, Orthotic/Prosthetic Management ,Patient/Caregiver Education, Self-Care/Home Management, Sensory Integration,Soft Tissue Mobilization,Taping, Therapeutic Activities, Therapeutic Exercises Modalities Biofeedback,Cold Pack/Ice Massage,Electric Stimulation, Hot Packs,Infrared Therapy, Iontophoresis,Paraffin Bath, Ultrasound,Vasopneumatic Devices Other Referrals/Consults Referrals/Consults Recommended Referral to ortho depending on pt tolerance to exercise or increased reports of instability Next Visit Focus/Plan Next Note Type Treatment Note Next Visit Plan Manual: soft tissue of knee/ quad/HS/post quad, patellar mobilizations Hip abd, ext, LAQ in mid range
--- NOTE | 2023-06-01 15:58 | PT.OPPOC ---
Physical, Occupational & Speech Therapy At [facility] Current Diagnoses Synovial cyst of popliteal space [Gauthier], unspecified knee (06/01/23) Strain of unspecified muscle(s) and tendon(s) at lower leg level, left leg, initial encounter (06/01/23) Visit Care Team Role Provider Type CORDELL Nassar Family Provider Advanced Show Design Supervisor Primary Care Provider Specialty: Family Practice Address: [address] [place] [address], [id number] Email: [email or web address] Yvonne Blanca PA-C Attending Provider Advanced Show Design Supervisor Referring Provider Specialty: Medical Wound Care Address: [address] [place] [address], [id number] Email: [email or web address] Plan Of Care PT-OP-T Assessment and Plan Start: 06/01/23 10:31 Freq: Status: Active Protocol: Document 06/01/23 10:31 NM (Rec: 06/01/23 11:18 NM [id number]) Physical Therapy Assessment Rehab Potential Rehabilitation Potential Good Evaluation Complexity Number of Personal Factors/Comorbidities 1-2 Number of Body Systems Impaired 1-2 Clinical Presentation at Evaluation Stable Impairments Impairments Activity Tolerance,Balance, Coordination,Functional Activities,Functional Mobility ,Gait,Pain,Posture,ROM, Sensation,Soft Tissue Mobility ,Strength Goals Six Impairment strength, function Short Term Goal (STG) Pt will demonstrate improved eccentric control with eccentric step downs for at least 5 reps with <2/10 pain in order to demonstrate improved quad control, hip strength, and activity tolerance. Set [employer] Goal (LTG) Pt will demonstrate improved eccentric control with eccentric step downs for at least 10 reps with <2/10 pain in order to demonstrate improved quad control, hip strength, and activity tolerance. LTG Duration 8 weeks Five Impairment strength Short Term Goal (STG) Pt will be able to perform at least 1 rep of single leg squats using good form and without knee valgus compensation in order to demonstrate improved quad control and hip strength for return to running. STG Duration 4 weeks Set Up [employer] Goal (LTG) Pt will be able to perform at least 3 rep of single leg squats using good form and without knee valgus compensation in order to demonstrate improved quad control and hip strength for return to running. LTG Duration 8 weeks Four Impairment strength, function Short Term Goal (STG) Pt will demonstrate equal bilateral squats x5 reps without compensation in order to show improved L knee ROM, strength, and tolerance for ADLs. STG Duration 4 weeks Set Up [employer] Goal (LTG) Pt will demonstrate equal bilateral squats x10 reps without compensation in order to show improved L knee ROM, strength, and tolerance for ADLs. LTG Duration 8 weeks Three Impairment strength Short Term Goal (STG) Pt will improve L knee flex and ext MMT score to at least 4/5 in order to demonstrate improved strength required for ambulation, running, and stairs. STG Duration 4 weeks Set Up [employer] Goal (LTG) Pt will improve L knee flex and ext MMT score to at least 4+/5 in order to demonstrate improved strength required for ambulation, running, and stairs. LTG Duration 8 weeks Two Impairment ROM Set Up [employer] Goal (LTG) Pt will increase L knee ext AROM to within 3 degrees of R knee extension for improved terminal knee extension during gait. LTG Duration 8 weeks One Impairment function Impairment LEFS: 68/80 Mcc Goal (LTG) Pt will increase LEFS score by at least 9 points (MCID) in order to demonstrate improved L knee function, ADL tolerance . LTG Duration 8 weeks Assessment Summary Assessment Pt is a 67 y.o. female presenting with L knee pain after jumping from a horse. Pt has normal L knee flexion ROM and minimal limitations in L knee extension ROM. Her L knee strength is decreased compared to RLE. Pt has a palpable bulge posterior to L knee which is consistent with dx of gauthier's cyst. Pt demos mild varus instability of L knee and has palpable clicking with knee flex/ext during Thessaly's and Farshad test. Pt has not had an MRI, but would likely benefit from a referral to ortho depending on progression with PT and due to hx of previous injuries to same knee. Pt would benefit from skilled PT to address limitations in L knee strength and ROM, gait, balance, education about postural mechanics in order to improve symptom management and return to PLOF. Physical Therapy Plan Frequency and Duration Frequency of Treatment 2x/Week Duration of treatment (weeks) 8 Plan of Care Start Date 06/01/23 Plan of Care End Date 07/27/23 Therapeutic Interventions Therapeutic Interventions Balance Training,Coordination Training,Gait Training,Home Exercise Program,Joint Mobilizations,Manual Therapy, Neuromuscular Re-education, Orthotic/Prosthetic Management ,Patient/Caregiver Education, Self-Care/Home Management, Sensory Integration,Soft Tissue Mobilization,Taping, Therapeutic Activities, Therapeutic Exercises Modalities Biofeedback,Cold Pack/Ice Massage,Electric Stimulation, Hot Packs,Infrared Therapy, Iontophoresis,Paraffin Bath, Ultrasound,Vasopneumatic Devices Other Referrals/Consults Referrals/Consults Recommended Referral to ortho depending on pt tolerance to exercise or increased reports of instability Next Visit Focus/Plan Next Note Type Treatment Note Next Visit Plan Manual: soft tissue of knee/ quad/HS/post quad, patellar mobilizations Hip abd, ext, LAQ in mid range Plan of Care Dates Plan of Care Start Date 06/01/23 Plan of Care End Date 07/27/23 Electronically Signed by: Vicky Dawkins, PT 06/02/23 [id number] If you are in agreement with this Plan of Care, please return a signed and dated copy. I have reviewed this Plan of Care and certify that the skilled therapy services above are required to meet the patient?s needs. Physician Signature Date Printed Name and Credentials Clinical Instructor Signature Printed Name and Credentials
--- NOTE | 2023-06-03 08:34 | PT.OTN ---
Current Diagnoses Synovial cyst of popliteal space [Gauthier], unspecified knee (06/03/23) Strain of unspecified muscle(s) and tendon(s) at lower leg level, left leg, initial encounter (06/03/23) Physical Therapy Treatment Note PT-OP-A Visit Information Start: 06/01/23 10:31 Freq: Status: Active Protocol: Document 06/03/23 07:29 NM (Rec: 06/03/23 08:34 NM [id number]) Out-Patient Physical Therapy Visit Information Visit Information Visit Type Treatment Note Visit Note KX modifier after 19 ST/PT visit Visit Start Time 07:30 Visit Stop Time 08:15 Total Visit Minutes 45 Visit Number 2 Evaluation Information Evaluation Date 06/01/23 PT-OP-B Current Condition Start: 06/01/23 10:31 Freq: Status: Active Protocol: Document 06/01/23 10:31 NM (Rec: 06/01/23 11:18 NM [id number]) Current Condition History of Current Condition Onset Date January 2023 Current Complaints L knee History of Current Condition Pt was working with her horse, when he got spooked. She jumped off the mounting block, landing on her L knee in standing. She felt off a pop on her L knee (landed on her feet) on the lateral side, with a varus force. It was swollen and she had limited weight bearing. Came to ED ( did x ray) in January, was given a knee ext brace to wear temporarily, which pt has not been wearing since January. She reports that her pain is intermittent but she still gets occasional pain laterally . She has worse pain walking down hill, unable to run (2 mi /day); she is able to run along side her horse but reports pain. Generally, she reports no pain overall, except in coming to stand is difficult from a squat. Reports popping with knee ext. She reports no instances of her knee buckling or giving out, but does report that sometimes her knee feels like it could. Prior Treatments and Tests L knee PMH: partial ACL tear ( still partial tear), meniscus bucket handle tear (repair), tibial plateau frx with screws ; gauthier's cyst (previous swollen) Radiographs 02/03/23: no acute fracture; no MRI performed Prior Functional Status Baseline Function- ADL's Independent Baseline Function- Mobility Independent Baseline Function- Gait run 2 mi/day (6-8 mi/wk) Baseline Function- Recreation/Hobbies Rides horses Current Functional Impairments (Reported) Functional Limitations- Mobility/Gait unable to run, walk down hills , landing on LLE Functional Limitations- Recreation/ Able to ride horses but must Hobbies dismount on R knee PT-OP-C Subjective Start: 06/01/23 10:31 Freq: Status: Active Protocol: Document 06/03/23 07:29 NM (Rec: 06/03/23 08:34 NM [id number]) OP-PT Subjective Patient Comments Patient Comments Pt reports stiffness in her L knee today, reports no pain in her knee. However, she states that last night she had to ice her knee due to medial and lateral knee pain (08/07). PT-OP-E Functional Tests Start: 06/01/23 10:31 Freq: Status: Active Protocol: Document 06/01/23 10:31 NM (Rec: 06/01/23 11:18 NM [id number]) Functional Tests Squat Test Score 10 B squats Comments able to perform deep squat but min pain, knee valgus, heels rise Single Leg Squat Test Score x1 LLE (RLE minimal valgus, better stability, no opposite hip drop) Comment no knee pain reported, demos knee valgus, foot pronation, R hip drop Other Single Leg Stance Score 25 sec LLE Comment demos valgus, mod instability at ankle (RLE 5 sec, more unstable) PT-OP-F Manual Assessment Start: 06/01/23 10:31 Freq: Status: Active Protocol: Document 06/01/23 10:31 NM (Rec: 06/01/23 11:18 NM [id number]) Manual Assessments Soft Tissue Assessment Soft Tissue Mobility Assessment Demos tenderness at posterior knee (hx of gauthier's cyst) with slight, palpable bulge. Joint Mobility Assessment Joint Mobility Assessment No valgus instability, minimal varus instability compared to R knee. Tenderness of L knee lateral joint line. Demos palpable/audible clicking with flexion/extension. No anterior or posterior instability of L knee, comparable to R knee. PT-OP-G Mobility & Gait Start: 06/01/23 10:31 Freq: Status: Active Protocol: Document 06/01/23 10:31 NM (Rec: 06/01/23 11:18 NM [id number]) OP Gait Assessment Comments Gait Comments antalgic Stair Climbing Evaluation Comments Stair Climbing Comments Eccentric control of LLE decreased compared to RLE. Demos mild knee valgus with foot pronation with descent and decreased quad control. PT-OP-H Neuro Start: 06/01/23 10:31 Freq: Status: Active Protocol: Document 06/01/23 10:31 NM (Rec: 06/01/23 11:18 NM [id number]) Sensation Evaluation Gross Sensation Gross Sensation Left LE Impaired Comments Summary Comments Pt demos slightly decreased sensation along L side in L3-4 dermatomes compared to RLE. Intact but decreased PT-OP-J Posture/Palpation/Skin Start: 06/01/23 10:31 Freq: Status: Active Protocol: Document 06/01/23 10:31 NM (Rec: 06/01/23 11:18 NM [id number]) Posture Evaluation Position Standing Evaluation View Anterior Pelvis Posture Neutral Weight Distribution Weight Shifted Right Knee Posture (L) Neutral,(R) Neutral Palpation Assessment Location L knee Palpation Location posterior knee, lateral knee, anterior knee Palpation Findings Soft Tissue Tightness,Muscle Guarding,Tenderness Palpation Details Tenderness along ant knee at patellar tendon, minimal tenderness along lateral joint line. No tenderness along medial joint line. Min tenderness and palpable bulge behind L knee PT-OP-K Range of Motion Start: 06/01/23 10:31 Freq: Status: Active Protocol: Document 06/01/23 10:31 NM (Rec: 06/01/23 11:18 NM [id number]) Hip Goniometric Range of Motion Hip Left Flexion w/Knee Flexed 110 Abduction 25 Internal Rotation 25 External Rotation 30 Right Flexion w/Knee Flexed 100 Abduction 25 Internal Rotation 25 External Rotation 30 Knee Goniometric Range of Motion Knee Left Knee ROM WFL Yes Patient Position Supine Flexion Active (degrees) 130 Flexion Passive (degrees) 135 Extension Active (degrees) 5 Extension Passive (degrees) 0 Comments pain with flex and ext, anahi quad set. Pain with overpressure into flex and ext Right Knee ROM WFL Yes Patient Position Supine Flexion Active (degrees) 130 Flexion Passive (degrees) 140 Extension Active (degrees) 0 Extension Passive (degrees) 2 PT-OP-L Special Tests Start: 06/01/23 10:31 Freq: Status: Active Protocol: Document 06/01/23 10:31 NM (Rec: 06/01/23 11:18 NM [id number]) Special Tests Knee Special Tests Posterior Draw Test Results negative Comments no excessive tibial translation Varus- 25 Degrees Test Results positive Comments minimal translation compared to RLE, no pain reported Varus- 0 Degrees Test Results negative Comments no excessive translation Valgus- 25 Degrees Test Results negative Comments no excessive translation Valgus- 0 Degrees Test Results negative Comments no excessive translation Thessaly Test 20 Degrees Test Results positive (L) Comments reproduces pain and catching in L knee Thessaly Test 5 Degrees Test Results positive (L) Comments reproduces pain and catching in L knee Farshad Test Test Results positive (L) Comments palpable and audible clicking Javed's Test Results negative Comments no excessive tibial translation Anterior Draw Test Results negative Comments no excessive tibial motion PT-OP-M Strength Start: 06/01/23 10:31 Freq: Status: Active Protocol: Document 06/01/23 10:31 NM (Rec: 06/01/23 11:18 NM [id number]) Hip Strength Hip Manual Muscle Testing Left Flexion (L2) 4 Good Extension (S1) 4+ Good+ Abduction 4+ Good+ Adduction 4+ Good+ External Rotation 4+ Good+ Internal Rotation 4+ Good+ Right Flexion (L2) 4 Good Extension (S1) 4+ Good+ Abduction 4+ Good+ Adduction 4+ Good+ External Rotation 4+ Good+ Internal Rotation 4+ Good+ Knee Strength Knee Manual Muscle Testing Right Flexion (S2) 4+ Good+ Extension (L3) 4- Good- Left Flexion (S2) 4- Good- Extension (L3) 4- Good- Comments Extension reproduces pain in posterior knee PT-OP-Q Treatments Start: 06/01/23 10:31 Freq: Status: Active Protocol: Document 06/03/23 07:29 NM (Rec: 06/03/23 08:34 NM [id number]) Cardio Equipment Bicycle (Upright) Duration (Minutes) 5 Resistance 7 Seat Position 5 Therapeutic Exercises Supine Exercises SLR Side left Resistance AROM Reps/Minutes 1x12 with 5 hold Comments cues for quad set, TKE; demos no ext lag, able to maintain contraction Bridge Supine Exercise Name with hip abd Side bilateral Resistance ely sh[place] green tb around thighs Equipment Used feet positioned further so knees <90 deg flex to prevent strain to meniscus Reps/Minutes 2x10 with 5 hold Comments cues for controlled motion; reports good feedback for glutes, no pain Hip ADD Supine Exercise Name strengthen hip ADD, VMO to reduce lateral patellar tracking Side bilateral Resistance in hooklying Equipment Used medium blue ball Reps/Minutes 10x5 Comments good feedback Sidelying Exercises Hip abd Sidelying Exercise Name with hip IR Side left Resistance AROM Equipment Used bottom knee bent for stability Reps/Minutes 1x12 with 5 hold Comments cues for toe down (hip IR) for more glute med activation, slow/control Sitting Exercises LAQ Side left Resistance AROM (for full ext) Reps/Minutes 2x10 with 3 hold at full ext Comments reports popping at patella but not painful, demos lateral tracking Hip IR Sitting Exercise Name for hip IR strengthening Side bilateral Resistance ely [place] green tb around ankles Equipment Used orange ball between knees Reps/Minutes 2x10 with 2-3 hold Comments reports good feedback in hips Standing Exercises Wall sit Side bilateral Resistance ely sh[place] green tb around thighs Equipment Used wall, no more than 60 deg knee flex Reps/Minutes 3x30 Comments cued for feet closer to wall for better quad activation TKE Side left Equipment Used small orange ball (towel for HEP) Reps/Minutes 15x3 Comments no pain reported Manual Therapy Treatment Soft Tissue Mobilization L knee Body Location patellar tendon Mobilization Type Cross-Friction,Strumming Intensity/Depth Moderate Body Position Supine Comments To promote ant knee pain relief at patellar tendon Joint Mobilizations L knee Joint patellar, tibiofemoral Direction Sup/inf, lat > med; post on femur, ant on tibia Grade II Body Position Supine Reps/Duration 5-6x30 ea Comments For improved patellar movement during knee flex/ext. Most limited in sup/inf direction. To promote greater medial patellar motion and decrease lateral tracking. Tibiofemoral mobilization for pain reduction and to begin moving into terminal knee ext. Pt continues with slight limitations in knee ext PT-OP-T Assessment and Plan Start: 06/01/23 10:31 Freq: Status: Active Protocol: Document 06/03/23 07:29 NM (Rec: 06/03/23 08:34 NM [id number]) Physical Therapy Assessment Goals Six Impairment strength, function Short Term Goal (STG) Pt will demonstrate improved eccentric control with eccentric step downs for at least 5 reps with <2/10 pain in order to demonstrate improved quad control, hip strength, and activity tolerance. [place] Goal (LTG) Pt will demonstrate improved eccentric control with eccentric step downs for at least 10 reps with <2/10 pain in order to demonstrate improved quad control, hip strength, and activity tolerance. LTG Duration 8 weeks Five Impairment strength Short Term Goal (STG) Pt will be able to perform at least 1 rep of single leg squats using good form and without knee valgus compensation in order to demonstrate improved quad control and hip strength for return to running. STG Duration 4 weeks Snf Goal (LTG) Pt will be able to perform at least 3 rep of single leg squats using good form and without knee valgus compensation in order to demonstrate improved quad control and hip strength for return to running. LTG Duration 8 weeks Four Impairment strength, function Short Term Goal (STG) Pt will demonstrate equal bilateral squats x5 reps without compensation in order to show improved L knee ROM, strength, and tolerance for ADLs. STG Duration 4 weeks [place] Goal (LTG) Pt will demonstrate equal bilateral squats x10 reps without compensation in order to show improved L knee ROM, strength, and tolerance for ADLs. LTG Duration 8 weeks Three Impairment strength Short Term Goal (STG) Pt will improve L knee flex and ext MMT score to at least 4/5 in order to demonstrate improved strength required for ambulation, running, and stairs. STG Duration 4 weeks [place] Goal (LTG) Pt will improve L knee flex and ext MMT score to at least 4+/5 in order to demonstrate improved strength required for ambulation, running, and stairs. LTG Duration 8 weeks Two Impairment ROM Snf Goal (LTG) Pt will increase L knee ext AROM to within 3 degrees of R knee extension for improved terminal knee extension during gait. LTG Duration 8 weeks One Impairment function Impairment LEFS: 68/80 Snf Goal (LTG) Pt will increase LEFS score by at least 9 points (MCID) in order to demonstrate improved L knee function, ADL tolerance . LTG Duration 8 weeks Assessment Summary Assessment Pt tolerated session well. Initiated exercises targeting terminal knee ext (TKE on wall , LAQ, SLR) for improved quad strength and to promote greater knee ext ROM. Pt has good response to exercises with no increased knee pain. Tmt focus on strengthening B hips to prevent compensations and decrease strain on knee. During wall sits and bridges, pt cued to limit knee flex due to meniscus involvement. Pt requires cues for correct execution, controled motion. Added hip adduction exercises to decrease lateral patellar tracking. Manual tmt focusing on pain reduction at patellar tendon, during patellar mobilizations, and to promote knee ext mobility. HEP: TKE against wall, LAQ, hip add, bridge with hip abd, sidelying hip abd, straight leg raise. Pt would benefit from skilled PT to address impairments in L knee ROM, hip/knee strength, gait and balance training in order to improve symptom management and activity tolerance for return to PLOF. Physical Therapy Plan Frequency and Duration Frequency of Treatment 2x/Week Duration of treatment (weeks) 8 Plan of Care Start Date 06/01/23 Plan of Care End Date 07/27/23 Therapeutic Interventions Therapeutic Interventions Balance Training,Coordination Training,Gait Training,Home Exercise Program,Joint Mobilizations,Manual Therapy, Neuromuscular Re-education, Orthotic/Prosthetic Management ,Patient/Caregiver Education, Self-Care/Home Management, Sensory Integration,Soft Tissue Mobilization,Taping, Therapeutic Activities, Therapeutic Exercises Modalities Biofeedback,Cold Pack/Ice Massage,Electric Stimulation, Hot Packs,Infrared Therapy, Iontophoresis,Paraffin Bath, Ultrasound,Vasopneumatic Devices Other Referrals/Consults Referrals/Consults Recommended Referral to ortho depending on pt tolerance to exercise or increased reports of instability Next Visit Focus/Plan Next Note Type Treatment Note Next Visit Plan Manual: soft tissue of knee/ quad/HS/post quad, patellar mobilizations Progress Hip abd, ext, LAQ in mid range (add resistance with band as tolerated) strengthening. Add exercise to target VMO/ADD to prevent lateral patellar tracking. Limit knee flex (not below 90 deg). Continue hip strengthening. Add stretching for calf, hip flex/ext, possibly quad depending on tolerance
--- NOTE | 2023-06-14 08:18 | PT.OTN ---
Addendum entered and electronically signed by Paulette Sage PTA 06/15/23 16:17: WIND TUNNEL TECHNICIAN provided brochure/business card to [facility] and Melba Larsenman F[employer]ional Equipment Service Technician for carryover over at PT progression per pt request. Original Note: Current Diagnoses Synovial cyst of popliteal space [Gauthier], unspecified knee (06/14/23) Strain of unspecified muscle(s) and tendon(s) at lower leg level, left leg, initial encounter (06/14/23) Physical Therapy Treatment Note PT-OP-A Visit Information Start: 06/01/23 10:31 Freq: Status: Active Protocol: Document 06/14/23 07:31 SP (Rec: 06/14/23 08:21 SP [id number]) Out-Patient Physical Therapy Visit Information Visit Information Visit Type Treatment Note Visit Note KX modifier after 19 ST/PT visit Visit Start Time 07:31 Visit Stop Time 08:18 Total Visit Minutes 47 Visit Number 3 Number of WIND TUNNEL TECHNICIAN Visits 1 Evaluation Information Evaluation Date 06/01/23 PT-OP-B Current Condition Start: 06/01/23 10:31 Freq: Status: Active Protocol: Document 06/01/23 10:31 NM (Rec: 06/01/23 11:18 NM [id number]) Current Condition History of Current Condition Onset Date January 2023 Current Complaints L knee History of Current Condition Pt was working with her horse, when he got spooked. She jumped off the mounting block, landing on her L knee in standing. She felt off a pop on her L knee (landed on her feet) on the lateral side, with a varus force. It was swollen and she had limited weight bearing. Came to ED ( did x ray) in January, was given a knee ext brace to wear temporarily, which pt has not been wearing since January. She reports that her pain is intermittent but she still gets occasional pain laterally . She has worse pain walking down hill, unable to run (2 mi /day); she is able to run along side her horse but reports pain. Generally, she reports no pain overall, except in coming to stand is difficult from a squat. Reports popping with knee ext. She reports no instances of her knee buckling or giving out, but does report that sometimes her knee feels like it could. Prior Treatments and Tests L knee PMH: partial ACL tear ( still partial tear), meniscus bucket handle tear (repair), tibial plateau frx with screws ; gauthier's cyst (previous swollen) Radiographs 02/03/23: no acute fracture; no MRI performed Prior Functional Status Baseline Function- ADL's Independent Baseline Function- Mobility Independent Baseline Function- Gait run 2 mi/day (6-8 mi/wk) Baseline Function- Recreation/Hobbies Rides horses Current Functional Impairments (Reported) Functional Limitations- Mobility/Gait unable to run, walk down hills , landing on LLE Functional Limitations- Recreation/ Able to ride horses but must Hobbies dismount on R knee PT-OP-C Subjective Start: 06/01/23 10:31 Freq: Status: Active Protocol: Document 06/14/23 07:31 SP (Rec: 06/14/23 08:21 SP [id number]) OP-PT Subjective Patient Comments Patient Comments Pt reports just got back from [place] and thinks pressure of flight bothered her knee and L ankle. She was fine coming back. She didn't do alot activity vacation mostly relaxing. Stated did well with HEP. She reports exercises are helping alot. PT-OP-E Functional Tests Start: 06/01/23 10:31 Freq: Status: Active Protocol: Document 06/01/23 10:31 NM (Rec: 06/01/23 11:18 NM [id number]) Functional Tests Squat Test Score 10 B squats Comments able to perform deep squat but min pain, knee valgus, heels rise Single Leg Squat Test Score x1 LLE (RLE minimal valgus, better stability, no opposite hip drop) Comment no knee pain reported, demos knee valgus, foot pronation, R hip drop Other Single Leg Stance Score 25 sec LLE Comment demos valgus, mod instability at ankle (RLE 5 sec, more unstable) PT-OP-F Manual Assessment Start: 06/01/23 10:31 Freq: Status: Active Protocol: Document 06/01/23 10:31 NM (Rec: 06/01/23 11:18 NM [id number]) Manual Assessments Soft Tissue Assessment Soft Tissue Mobility Assessment Demos tenderness at posterior knee (hx of gauthier's cyst) with slight, palpable bulge. Joint Mobility Assessment Joint Mobility Assessment No valgus instability, minimal varus instability compared to R knee. Tenderness of L knee lateral joint line. Demos palpable/audible clicking with flexion/extension. No anterior or posterior instability of L knee, comparable to R knee. PT-OP-G Mobility & Gait Start: 06/01/23 10:31 Freq: Status: Active Protocol: Document 06/01/23 10:31 NM (Rec: 06/01/23 11:18 NM [id number]) OP Gait Assessment Comments Gait Comments antalgic Stair Climbing Evaluation Comments Stair Climbing Comments Eccentric control of LLE decreased compared to RLE. Demos mild knee valgus with foot pronation with descent and decreased quad control. PT-OP-H Neuro Start: 06/01/23 10:31 Freq: Status: Active Protocol: Document 06/01/23 10:31 NM (Rec: 06/01/23 11:18 NM [id number]) Sensation Evaluation Gross Sensation Gross Sensation Left LE Impaired Comments Summary Comments Pt demos slightly decreased sensation along L side in L3-4 dermatomes compared to RLE. Intact but decreased PT-OP-J Posture/Palpation/Skin Start: 06/01/23 10:31 Freq: Status: Active Protocol: Document 06/01/23 10:31 NM (Rec: 06/01/23 11:18 NM [id number]) Posture Evaluation Position Standing Evaluation View Anterior Pelvis Posture Neutral Weight Distribution Weight Shifted Right Knee Posture (L) Neutral,(R) Neutral Palpation Assessment Location L knee Palpation Location posterior knee, lateral knee, anterior knee Palpation Findings Soft Tissue Tightness,Muscle Guarding,Tenderness Palpation Details Tenderness along ant knee at patellar tendon, minimal tenderness along lateral joint line. No tenderness along medial joint line. Min tenderness and palpable bulge behind L knee PT-OP-K Range of Motion Start: 06/01/23 10:31 Freq: Status: Active Protocol: Document 06/01/23 10:31 NM (Rec: 06/01/23 11:18 NM [id number]) Hip Goniometric Range of Motion Hip Left Flexion w/Knee Flexed 110 Abduction 25 Internal Rotation 25 External Rotation 30 Right Flexion w/Knee Flexed 100 Abduction 25 Internal Rotation 25 External Rotation 30 Knee Goniometric Range of Motion Knee Left Knee ROM WFL Yes Patient Position Supine Flexion Active (degrees) 130 Flexion Passive (degrees) 135 Extension Active (degrees) 5 Extension Passive (degrees) 0 Comments pain with flex and ext, anahi quad set. Pain with overpressure into flex and ext Right Knee ROM WFL Yes Patient Position Supine Flexion Active (degrees) 130 Flexion Passive (degrees) 140 Extension Active (degrees) 0 Extension Passive (degrees) 2 PT-OP-L Special Tests Start: 06/01/23 10:31 Freq: Status: Active Protocol: Document 06/01/23 10:31 NM (Rec: 06/01/23 11:18 NM [id number]) Special Tests Knee Special Tests Posterior Draw Test Results negative Comments no excessive tibial translation Varus- 25 Degrees Test Results positive Comments minimal translation compared to RLE, no pain reported Varus- 0 Degrees Test Results negative Comments no excessive translation Valgus- 25 Degrees Test Results negative Comments no excessive translation Valgus- 0 Degrees Test Results negative Comments no excessive translation [place] Test 20 Degrees Test Results positive (L) Comments reproduces pain and catching in L knee [place] Test 5 Degrees Test Results positive (L) Comments reproduces pain and catching in L knee Farshad Test Test Results positive (L) Comments palpable and audible clicking Javed's Test Results negative Comments no excessive tibial translation Anterior Draw Test Results negative Comments no excessive tibial motion PT-OP-M Strength Start: 06/01/23 10:31 Freq: Status: Active Protocol: Document 06/01/23 10:31 NM (Rec: 06/01/23 11:18 NM [id number]) Hip Strength Hip Manual Muscle Testing Left Flexion (L2) 4 Good Extension (S1) 4+ Good+ Abduction 4+ Good+ Adduction 4+ Good+ External Rotation 4+ Good+ Internal Rotation 4+ Good+ Right Flexion (L2) 4 Good Extension (S1) 4+ Good+ Abduction 4+ Good+ Adduction 4+ Good+ External Rotation 4+ Good+ Internal Rotation 4+ Good+ Knee Strength Knee Manual Muscle Testing Right Flexion (S2) 4+ Good+ Extension (L3) 4- Good- Left Flexion (S2) 4- Good- Extension (L3) 4- Good- Comments Extension reproduces pain in posterior knee PT-OP-Q Treatments Start: 06/01/23 10:31 Freq: Status: Active Protocol: Document 06/14/23 07:31 SP (Rec: 06/14/23 08:21 SP [id number]) Cardio Equipment Bicycle (Upright) Duration (Minutes) 6 Resistance 8 Seat Position 5 Gym Equipment Shuttle Recovery unilateral squat Resistance 37#> 50# dark navy L, 50# 2 dark navy R Shuttle Recovery Platform Stable Reps/Time 2x15 Therapeutic Exercises Standing Exercises eccentric step down fwd Standing Exercise Name added to HEP: fwd and lateral Side left Resistance 2 step (text book home) Equipment Used light contact wall Reps/Minutes 2x10 Comments painfree, cued knee alignment behind/with mid foot band walk Standing Exercise Name lateral & fwd Side left Resistance L3 TB above>below knee Reps/Minutes 20 ft x2 laps Comments cued little bigger than normal stance Wall sit Standing Exercise Name HEP reviewed Side bilateral Resistance [place] tb around thighs Equipment Used wall, no more than 60 deg knee flex Reps/Minutes 2x2min hold Comments cued for feet closer to wall for better quad activation TKE Standing Exercise Name HEP reviewed- verbal review Side left Resistance TB #3 [place] green Equipment Used towel under distal thigh Reps/Minutes x15 Comments no pain reported- did over vacation helping Other Exercises rolling Other Exercise Name 1. stick rolling 2. foam roll Side left Resistance quad, HS, calf Reps/Minutes 2 min, 2. discussion not performed Comments good response rolling stick, discussed foam roller trial form next tx stretching Other Exercise Name 1. 1/2 kneel hip flexor 2. calf 3. nate stretch review Side bilateral Reps/Minutes 30 each 1-3 reps Comments discussion, self past performed can be helpful continue PT-OP-T Assessment and Plan Start: 06/01/23 10:31 Freq: Status: Active Protocol: Document 06/14/23 07:31 SP (Rec: 06/14/23 08:21 SP [id number]) Physical Therapy Assessment Goals Six Impairment strength, function Short Term Goal (STG) Pt will demonstrate improved eccentric control with eccentric step downs for at least 5 reps with <2/10 pain in order to demonstrate improved quad control, hip strength, and activity tolerance. Reshipping Clerk Goal (LTG) Pt will demonstrate improved eccentric control with eccentric step downs for at least 10 reps with <2/10 pain in order to demonstrate improved quad control, hip strength, and activity tolerance. LTG Duration 8 weeks Five Impairment strength Short Term Goal (STG) Pt will be able to perform at least 1 rep of single leg squats using good form and without knee valgus compensation in order to demonstrate improved quad control and hip strength for return to running. STG Duration 4 weeks Reshipping Clerk Goal (LTG) Pt will be able to perform at least 3 rep of single leg squats using good form and without knee valgus compensation in order to demonstrate improved quad control and hip strength for return to running. LTG Duration 8 weeks Four Impairment strength, function Short Term Goal (STG) Pt will demonstrate equal bilateral squats x5 reps without compensation in order to show improved L knee ROM, strength, and tolerance for ADLs. STG Duration 4 weeks Senior Care Goal (LTG) Pt will demonstrate equal bilateral squats x10 reps without compensation in order to show improved L knee ROM, strength, and tolerance for ADLs. LTG Duration 8 weeks Three Impairment strength Short Term Goal (STG) Pt will improve L knee flex and ext MMT score to at least 4/5 in order to demonstrate improved strength required for ambulation, running, and stairs. STG Duration 4 weeks Senior Care Goal (LTG) Pt will improve L knee flex and ext MMT score to at least 4+/5 in order to demonstrate improved strength required for ambulation, running, and stairs. LTG Duration 8 weeks Two Impairment ROM Reshipping Clerk Goal (LTG) Pt will increase L knee ext AROM to within 3 degrees of R knee extension for improved terminal knee extension during gait. LTG Duration 8 weeks One Impairment function Impairment LEFS: 68/80 Reshipping Clerk Goal (LTG) Pt will increase LEFS score by at least 9 points (MCID) in order to demonstrate improved L knee function, ADL tolerance . LTG Duration 8 weeks Assessment Summary Assessment Pt good mid range effort with increase resistance GTB over vacation added and this tx. Added resisted band walk today , cues for knees with knees/ little better than normal step soft knee no distal but more hip muscle tiring- good response post cues and corrections. Pt good feedback painfree end tx post manual addition review for home. Will assess foam roll form before add at home. Physical Therapy Plan Frequency and Duration Frequency of Treatment 2x/Week Duration of treatment (weeks) 8 Plan of Care Start Date 06/01/23 Plan of Care End Date 07/27/23 Therapeutic Interventions Therapeutic Interventions Balance Training,Coordination Training,Gait Training,Home Exercise Program,Joint Mobilizations,Manual Therapy, Neuromuscular Re-education, Orthotic/Prosthetic Management ,Patient/Caregiver Education, Self-Care/Home Management, Sensory Integration,Soft Tissue Mobilization,Taping, Therapeutic Activities, Therapeutic Exercises Modalities Biofeedback,Cold Pack/Ice Massage,Electric Stimulation, Hot Packs,Infrared Therapy, Iontophoresis,Paraffin Bath, Ultrasound,Vasopneumatic Devices Other Referrals/Consults Referrals/Consults Recommended Referral to ortho depending on pt tolerance to exercise or increased reports of instability Next Visit Focus/Plan Next Note Type Treatment Note Next Visit Plan Trial plank, step ups, SL activities and how sleep pillows. Manual: soft tissue of knee/ quad/HS/post quad, patellar mobilizations Progress Hip abd, ext, LAQ in mid range (add resistance with band as tolerated) strengthening. Add exercise to target VMO/ADD to prevent lateral patellar tracking. Limit knee flex (not below 90 deg). Continue hip strengthening. Add stretching for calf, hip flex/ext, possibly quad depending on tolerance
--- NOTE | 2023-06-21 08:54 | PT.OTN ---
Current Diagnoses Synovial cyst of popliteal space [Gauthier], unspecified knee (06/21/23) Strain of unspecified muscle(s) and tendon(s) at lower leg level, left leg, initial encounter (06/21/23) Physical Therapy Treatment Note PT-OP-A Visit Information Start: 06/01/23 10:31 Freq: Status: Active Protocol: Document 06/21/23 07:32 NM (Rec: 06/21/23 08:17 NM [id number]) Out-Patient Physical Therapy Visit Information Visit Information Visit Type Treatment Note Visit Note KX modifier after 19 ST/PT visit Visit Start Time 07:32 Visit Stop Time 08:15 Total Visit Minutes 43 Visit Number 4 Evaluation Information Evaluation Date 06/01/23 PT-OP-B Current Condition Start: 06/01/23 10:31 Freq: Status: Active Protocol: Document 06/01/23 10:31 NM (Rec: 06/01/23 11:18 NM [id number]) Current Condition History of Current Condition Onset Date January 2023 Current Complaints L knee History of Current Condition Pt was working with her horse, when he got spooked. She jumped off the mounting block, landing on her L knee in standing. She felt off a pop on her L knee (landed on her feet) on the lateral side, with a varus force. It was swollen and she had limited weight bearing. Came to ED ( did x ray) in January, was given a knee ext brace to wear temporarily, which pt has not been wearing since January. She reports that her pain is intermittent but she still gets occasional pain laterally . She has worse pain walking down hill, unable to run (2 mi /day); she is able to run along side her horse but reports pain. Generally, she reports no pain overall, except in coming to stand is difficult from a squat. Reports popping with knee ext. She reports no instances of her knee buckling or giving out, but does report that sometimes her knee feels like it could. Prior Treatments and Tests L knee PMH: partial ACL tear ( still partial tear), meniscus bucket handle tear (repair), tibial plateau frx with screws ; gauthier's cyst (previous swollen) Radiographs 02/03/23: no acute fracture; no MRI performed Prior Functional Status Baseline Function- ADL's Independent Baseline Function- Mobility Independent Baseline Function- Gait run 2 mi/day (6-8 mi/wk) Baseline Function- Recreation/Hobbies Rides horses Current Functional Impairments (Reported) Functional Limitations- Mobility/Gait unable to run, walk down hills , landing on LLE Functional Limitations- Recreation/ Able to ride horses but must Hobbies dismount on R knee PT-OP-C Subjective Start: 06/01/23 10:31 Freq: Status: Active Protocol: Document 06/21/23 07:32 NM (Rec: 06/21/23 08:17 NM [id number]) OP-PT Subjective Patient Comments Patient Comments Pt reports sharp pain (5/10) with L knee ext, particularly with LAQ if resisted. She was unable to perform her HEP yesterday due to discomfort and swelling, wanting to rest. She reports that she is able to run slowly in parking lots now without knee pain, which she was unable to do before due to pain. She reports no other knee pain or feelings of instability. PT-OP-E Functional Tests Start: 06/01/23 10:31 Freq: Status: Active Protocol: Document 06/01/23 10:31 NM (Rec: 06/01/23 11:18 NM [id number]) Functional Tests Squat Test Score 10 B squats Comments able to perform deep squat but min pain, knee valgus, heels rise Single Leg Squat Test Score x1 LLE (RLE minimal valgus, better stability, no opposite hip drop) Comment no knee pain reported, demos knee valgus, foot pronation, R hip drop Other Single Leg Stance Score 25 sec LLE Comment demos valgus, mod instability at ankle (RLE 5 sec, more unstable) PT-OP-F Manual Assessment Start: 06/01/23 10:31 Freq: Status: Active Protocol: Document 06/01/23 10:31 NM (Rec: 06/01/23 11:18 NM [id number]) Manual Assessments Soft Tissue Assessment Soft Tissue Mobility Assessment Demos tenderness at posterior knee (hx of gauthier's cyst) with slight, palpable bulge. Joint Mobility Assessment Joint Mobility Assessment No valgus instability, minimal varus instability compared to R knee. Tenderness of L knee lateral joint line. Demos palpable/audible clicking with flexion/extension. No anterior or posterior instability of L knee, comparable to R knee. PT-OP-G Mobility & Gait Start: 06/01/23 10:31 Freq: Status: Active Protocol: Document 06/01/23 10:31 NM (Rec: 06/01/23 11:18 NM [id number]) OP Gait Assessment Comments Gait Comments antalgic Stair Climbing Evaluation Comments Stair Climbing Comments Eccentric control of LLE decreased compared to RLE. Demos mild knee valgus with foot pronation with descent and decreased quad control. PT-OP-H Neuro Start: 06/01/23 10:31 Freq: Status: Active Protocol: Document 06/01/23 10:31 NM (Rec: 06/01/23 11:18 NM [id number]) Sensation Evaluation Gross Sensation Gross Sensation Left LE Impaired Comments Summary Comments Pt demos slightly decreased sensation along L side in L3-4 dermatomes compared to RLE. Intact but decreased PT-OP-J Posture/Palpation/Skin Start: 06/01/23 10:31 Freq: Status: Active Protocol: Document 06/01/23 10:31 NM (Rec: 06/01/23 11:18 NM [id number]) Posture Evaluation Position Standing Evaluation View Anterior Pelvis Posture Neutral Weight Distribution Weight Shifted Right Knee Posture (L) Neutral,(R) Neutral Palpation Assessment Location L knee Palpation Location posterior knee, lateral knee, anterior knee Palpation Findings Soft Tissue Tightness,Muscle Guarding,Tenderness Palpation Details Tenderness along ant knee at patellar tendon, minimal tenderness along lateral joint line. No tenderness along medial joint line. Min tenderness and palpable bulge behind L knee PT-OP-K Range of Motion Start: 06/01/23 10:31 Freq: Status: Active Protocol: Document 06/01/23 10:31 NM (Rec: 06/01/23 11:18 NM [id number]) Hip Goniometric Range of Motion Hip Left Flexion w/Knee Flexed 110 Abduction 25 Internal Rotation 25 External Rotation 30 Right Flexion w/Knee Flexed 100 Abduction 25 Internal Rotation 25 External Rotation 30 Knee Goniometric Range of Motion Knee Left Knee ROM WFL Yes Patient Position Supine Flexion Active (degrees) 130 Flexion Passive (degrees) 135 Extension Active (degrees) 5 Extension Passive (degrees) 0 Comments pain with flex and ext, anahi quad set. Pain with overpressure into flex and ext Right Knee ROM WFL Yes Patient Position Supine Flexion Active (degrees) 130 Flexion Passive (degrees) 140 Extension Active (degrees) 0 Extension Passive (degrees) 2 PT-OP-L Special Tests Start: 06/01/23 10:31 Freq: Status: Active Protocol: Document 06/01/23 10:31 NM (Rec: 06/01/23 11:18 NM [id number]) Special Tests Knee Special Tests Posterior Draw Test Results negative Comments no excessive tibial translation Varus- 25 Degrees Test Results positive Comments minimal translation compared to RLE, no pain reported Varus- 0 Degrees Test Results negative Comments no excessive translation Valgus- 25 Degrees Test Results negative Comments no excessive translation Valgus- 0 Degrees Test Results negative Comments no excessive translation [place] Test 20 Degrees Test Results positive (L) Comments reproduces pain and catching in L knee [place] Test 5 Degrees Test Results positive (L) Comments reproduces pain and catching in L knee Farshad Test Test Results positive (L) Comments palpable and audible clicking Javed's Test Results negative Comments no excessive tibial translation Anterior Draw Test Results negative Comments no excessive tibial motion PT-OP-M Strength Start: 06/01/23 10:31 Freq: Status: Active Protocol: Document 06/01/23 10:31 NM (Rec: 06/01/23 11:18 NM [id number]) Hip Strength Hip Manual Muscle Testing Left Flexion (L2) 4 Good Extension (S1) 4+ Good+ Abduction 4+ Good+ Adduction 4+ Good+ External Rotation 4+ Good+ Internal Rotation 4+ Good+ Right Flexion (L2) 4 Good Extension (S1) 4+ Good+ Abduction 4+ Good+ Adduction 4+ Good+ External Rotation 4+ Good+ Internal Rotation 4+ Good+ Knee Strength Knee Manual Muscle Testing Right Flexion (S2) 4+ Good+ Extension (L3) 4- Good- Left Flexion (S2) 4- Good- Extension (L3) 4- Good- Comments Extension reproduces pain in posterior knee PT-OP-Q Treatments Start: 06/01/23 10:31 Freq: Status: Active Protocol: Document 06/21/23 07:32 NM (Rec: 06/21/23 08:17 NM [id number]) Gym Equipment Shuttle Recovery bilateral squat Details ball btwn feet for VMO/add w/o valgus; not painful Resistance 75# (davy) Shuttle Recovery Platform Stable Reps/Time 1x15 unilateral squat Details cues for TKE without locked knee; reports click with ext Resistance 50# dark navy Shuttle Recovery Platform Stable Reps/Time 2x15 Therapeutic Exercises Standing Exercises eccentric step down fwd Standing Exercise Name lateral, fwd, bwd Side left Resistance 4 step Equipment Used light contact hand rail for balance Reps/Minutes 2x10 Comments cued knee alignment over foot, no opp hip drop band walk Standing Exercise Name lateral, fwd/retro Side left Resistance lvl 3 [place] tb Equipment Used band around ankles Reps/Minutes 20 ftx2 laps ea Comments demos improved control; cued to keep wt over midfoot; no pain reported Manual Therapy Treatment Soft Tissue Mobilization L knee Body Location patellar tendon Mobilization Type Cross-Friction,Strumming Intensity/Depth Moderate Body Position Supine Comments To promote ant knee pain relief at patellar tendon Joint Mobilizations L knee Joint patellar, tibiofemoral Direction Sup/inf, lat > med; post on femur, ant on tibia Grade II Body Position Supine Reps/Duration 5-6x30 ea Comments For improved patellar movement during knee flex/ext. Most limited in sup/inf direction. To promote greater medial patellar motion and decrease lateral tracking. Tibiofemoral mobilization for pain reduction and to begin moving into terminal knee ext. Pt continues with slight limitations in knee ext Self-Care/Home Management Treatment Education Patient Education Body Mechanics,Home Exercise Program,Joint Protection,Pain Management Other Education PT educated pt on continued modalities for prn pain relief and swelling management. Also instructed pt in avoiding certain activities including deep squat, locked knees, squat and rotation in order to limit stress on meniscus. Educated pt briefly on healing times and rates for meniscus, in addition to looking for signs of increased instability or pain (e.g. increased locking/clicking/popping, giving out, etc). HEP: fwd/ reverse monster walk, reverse step downs 4 step. Pt verbalizes understanding PT-OP-T Assessment and Plan Start: 06/01/23 10:31 Freq: Status: Active Protocol: Document 06/21/23 07:32 NM (Rec: 06/21/23 08:17 NM [id number]) Physical Therapy Assessment Goals Six Impairment strength, function Short Term Goal (STG) Pt will demonstrate improved eccentric control with eccentric step downs for at least 5 reps with <2/10 pain in order to demonstrate improved quad control, hip strength, and activity tolerance. Usp Goal (LTG) Pt will demonstrate improved eccentric control with eccentric step downs for at least 10 reps with <2/10 pain in order to demonstrate improved quad control, hip strength, and activity tolerance. LTG Duration 8 weeks Five Impairment strength Short Term Goal (STG) Pt will be able to perform at least 1 rep of single leg squats using good form and without knee valgus compensation in order to demonstrate improved quad control and hip strength for return to running. STG Duration 4 weeks Usp Goal (LTG) Pt will be able to perform at least 3 rep of single leg squats using good form and without knee valgus compensation in order to demonstrate improved quad control and hip strength for return to running. LTG Duration 8 weeks Four Impairment strength, function Short Term Goal (STG) Pt will demonstrate equal bilateral squats x5 reps without compensation in order to show improved L knee ROM, strength, and tolerance for ADLs. STG Duration 4 weeks Usp Goal (LTG) Pt will demonstrate equal bilateral squats x10 reps without compensation in order to show improved L knee ROM, strength, and tolerance for ADLs. LTG Duration 8 weeks Three Impairment strength Short Term Goal (STG) Pt will improve L knee flex and ext MMT score to at least 4/5 in order to demonstrate improved strength required for ambulation, running, and stairs. STG Duration 4 weeks Usp Goal (LTG) Pt will improve L knee flex and ext MMT score to at least 4+/5 in order to demonstrate improved strength required for ambulation, running, and stairs. LTG Duration 8 weeks Two Impairment ROM [place] Goal (LTG) Pt will increase L knee ext AROM to within 3 degrees of R knee extension for improved terminal knee extension during gait. LTG Duration 8 weeks One Impairment function Impairment LEFS: 68/80 [place] Goal (LTG) Pt will increase LEFS score by at least 9 points (MCID) in order to demonstrate improved L knee function, ADL tolerance . LTG Duration 8 weeks Assessment Summary Assessment Treatment focus on continued LLE strengthening, emphasizing quads/glutes to offload strain on menisci. Initiated loaded bilateral squat on leg press with ball between ankles for increased VMO activation to decrease lateral tracking of L patella with knee ext. Continued with hip abduction strengthening using fwd/retro/ lateral monster walks, eccentric step downs in multiple directions. Progressed from 2 to 4 step for eccentric step downs as pt demos improved control of knee without any knee valgus. Requires moderate cues for hip hinge during stepping and step down activities for greater glute activation, in addition to center her knee over the midfoot to prevent compensations at hip including rotation and opposite hip drop. Pt consistently demos R trendelenburg sign with L knee flex, indicating need for further glute medius strengthening. Pt reports no increased L knee pain with activity during sessions. Manual treatment consistenting of soft tissue mobilization to L patellar tendon and joint mobilizations to improve L knee ext ROM and patellar mobility. PT educated pt on activity modification to minimize stress on meniscus at this time, including minimize deep squatting positions. She is following up with her PCP later today; due to continued swelling in knee 4 months after injury, PT encouraged pt to ask PCP for additional imaging and called PCP with recommendation. Depending on findings, pt shoulder be referred to ortho for additional work up. Pt would benefit from skilled PT for progressing LLE strengthening, stabilization, and education regarding functional activity modification in order to improve pain symptoms and activity tolerance for improved QOL. Physical Therapy Plan Frequency and Duration Frequency of Treatment 2x/Week Duration of treatment (weeks) 8 Plan of Care Start Date 06/01/23 Plan of Care End Date 07/27/23 Therapeutic Interventions Therapeutic Interventions Balance Training,Coordination Training,Gait Training,Home Exercise Program,Joint Mobilizations,Manual Therapy, Neuromuscular Re-education, Orthotic/Prosthetic Management ,Patient/Caregiver Education, Self-Care/Home Management, Sensory Integration,Soft Tissue Mobilization,Taping, Therapeutic Activities, Therapeutic Exercises Modalities Biofeedback,Cold Pack/Ice Massage,Electric Stimulation, Hot Packs,Infrared Therapy, Iontophoresis,Paraffin Bath, Ultrasound,Vasopneumatic Devices Other Referrals/Consults Referrals/Consults Recommended Referral to ortho depending on pt tolerance to exercise or increased reports of instability Next Visit Focus/Plan Next Note Type Treatment Note Next Visit Plan Manual: soft tissue of knee/ quad/HS/post quad, patellar mobilizations Continue glute max/med strengthening, knee re- education. Trial: 4-6 step up , mini lunge, plank, single leg squat with UE support (if challenge needed). Add exercise to target VMO/ADD to prevent lateral patellar tracking. Limit knee flex (not below 90 deg). Continue hip strengthening. Add stretching for calf, hip flex/ext, possibly quad depending on tolerance
--- NOTE | 2023-06-28 17:03 | PT.OTN ---
Current Diagnoses Synovial cyst of popliteal space [Gauthier], unspecified knee (06/28/23) Strain of unspecified muscle(s) and tendon(s) at lower leg level, left leg, initial encounter (06/28/23) Physical Therapy Treatment Note PT-OP-A Visit Information Start: 06/01/23 10:31 Freq: Status: Active Protocol: Document 06/28/23 08:16 NM (Rec: 06/28/23 09:01 NM [id number]) Out-Patient Physical Therapy Visit Information Visit Information Visit Type Treatment Note Visit Note KX modifier after 19 ST/PT visit Visit Start Time 08:17 Visit Stop Time 08:59 Visit Number 5 Evaluation Information Evaluation Date 06/01/23 PT-OP-B Current Condition Start: 06/01/23 10:31 Freq: Status: Active Protocol: Document 06/01/23 10:31 NM (Rec: 06/01/23 11:18 NM [id number]) Current Condition History of Current Condition Onset Date January 2023 Current Complaints L knee History of Current Condition Pt was working with her horse, when he got spooked. She jumped off the mounting block, landing on her L knee in standing. She felt off a pop on her L knee (landed on her feet) on the lateral side, with a varus force. It was swollen and she had limited weight bearing. Came to ED ( did x ray) in January, was given a knee ext brace to wear temporarily, which pt has not been wearing since January. She reports that her pain is intermittent but she still gets occasional pain laterally . She has worse pain walking down hill, unable to run (2 mi /day); she is able to run along side her horse but reports pain. Generally, she reports no pain overall, except in coming to stand is difficult from a squat. Reports popping with knee ext. She reports no instances of her knee buckling or giving out, but does report that sometimes her knee feels like it could. Prior Treatments and Tests L knee PMH: partial ACL tear ( still partial tear), meniscus bucket handle tear (repair), tibial plateau frx with screws ; gauthier's cyst (previous swollen) Radiographs 02/03/23: no acute fracture; no MRI performed Prior Functional Status Baseline Function- ADL's Independent Baseline Function- Mobility Independent Baseline Function- Gait run 2 mi/day (6-8 mi/wk) Baseline Function- Recreation/Hobbies Rides horses Current Functional Impairments (Reported) Functional Limitations- Mobility/Gait unable to run, walk down hills , landing on LLE Functional Limitations- Recreation/ Able to ride horses but must Hobbies dismount on R knee PT-OP-C Subjective Start: 06/01/23 10:31 Freq: Status: Active Protocol: Document 06/28/23 08:16 NM (Rec: 06/28/23 09:01 NM [id number]) OP-PT Subjective Patient Comments Patient Comments Pt reports stiffness and a little soreness overall, but 1 /10 L knee pain. She states that her knee feels slightly swollen in the back. She has been performing her HEP, reports R hip pain with sidelying abd. PT-OP-E Functional Tests Start: 06/01/23 10:31 Freq: Status: Active Protocol: Document 06/01/23 10:31 NM (Rec: 06/01/23 11:18 NM [id number]) Functional Tests Squat Test Score 10 B squats Comments able to perform deep squat but min pain, knee valgus, heels rise Single Leg Squat Test Score x1 LLE (RLE minimal valgus, better stability, no opposite hip drop) Comment no knee pain reported, demos knee valgus, foot pronation, R hip drop Other Single Leg Stance Score 25 sec LLE Comment demos valgus, mod instability at ankle (RLE 5 sec, more unstable) PT-OP-F Manual Assessment Start: 06/01/23 10:31 Freq: Status: Active Protocol: Document 06/01/23 10:31 NM (Rec: 06/01/23 11:18 NM [id number]) Manual Assessments Soft Tissue Assessment Soft Tissue Mobility Assessment Demos tenderness at posterior knee (hx of gauthier's cyst) with slight, palpable bulge. Joint Mobility Assessment Joint Mobility Assessment No valgus instability, minimal varus instability compared to R knee. Tenderness of L knee lateral joint line. Demos palpable/audible clicking with flexion/extension. No anterior or posterior instability of L knee, comparable to R knee. PT-OP-G Mobility & Gait Start: 06/01/23 10:31 Freq: Status: Active Protocol: Document 06/01/23 10:31 NM (Rec: 06/01/23 11:18 NM [id number]) OP Gait Assessment Comments Gait Comments antalgic Stair Climbing Evaluation Comments Stair Climbing Comments Eccentric control of LLE decreased compared to RLE. Demos mild knee valgus with foot pronation with descent and decreased quad control. PT-OP-H Neuro Start: 06/01/23 10:31 Freq: Status: Active Protocol: Document 06/01/23 10:31 NM (Rec: 06/01/23 11:18 NM [id number]) Sensation Evaluation Gross Sensation Gross Sensation Left LE Impaired Comments Summary Comments Pt demos slightly decreased sensation along L side in L3-4 dermatomes compared to RLE. Intact but decreased PT-OP-J Posture/Palpation/Skin Start: 06/01/23 10:31 Freq: Status: Active Protocol: Document 06/01/23 10:31 NM (Rec: 06/01/23 11:18 NM [id number]) Posture Evaluation Position Standing Evaluation View Anterior Pelvis Posture Neutral Weight Distribution Weight Shifted Right Knee Posture (L) Neutral,(R) Neutral Palpation Assessment Location L knee Palpation Location posterior knee, lateral knee, anterior knee Palpation Findings Soft Tissue Tightness,Muscle Guarding,Tenderness Palpation Details Tenderness along ant knee at patellar tendon, minimal tenderness along lateral joint line. No tenderness along medial joint line. Min tenderness and palpable bulge behind L knee PT-OP-K Range of Motion Start: 06/01/23 10:31 Freq: Status: Active Protocol: Document 06/01/23 10:31 NM (Rec: 06/01/23 11:18 NM [id number]) Hip Goniometric Range of Motion Hip Left Flexion w/Knee Flexed 110 Abduction 25 Internal Rotation 25 External Rotation 30 Right Flexion w/Knee Flexed 100 Abduction 25 Internal Rotation 25 External Rotation 30 Knee Goniometric Range of Motion Knee Left Knee ROM WFL Yes Patient Position Supine Flexion Active (degrees) 130 Flexion Passive (degrees) 135 Extension Active (degrees) 5 Extension Passive (degrees) 0 Comments pain with flex and ext, anahi quad set. Pain with overpressure into flex and ext Right Knee ROM WFL Yes Patient Position Supine Flexion Active (degrees) 130 Flexion Passive (degrees) 140 Extension Active (degrees) 0 Extension Passive (degrees) 2 PT-OP-L Special Tests Start: 06/01/23 10:31 Freq: Status: Active Protocol: Document 06/01/23 10:31 NM (Rec: 06/01/23 11:18 NM [id number]) Special Tests Knee Special Tests Posterior Draw Test Results negative Comments no excessive tibial translation Varus- 25 Degrees Test Results positive Comments minimal translation compared to RLE, no pain reported Varus- 0 Degrees Test Results negative Comments no excessive translation Valgus- 25 Degrees Test Results negative Comments no excessive translation Valgus- 0 Degrees Test Results negative Comments no excessive translation [place]ss[place] Test 20 Degrees Test Results positive (L) Comments reproduces pain and catching in L knee [place]ss[place] Test 5 Degrees Test Results positive (L) Comments reproduces pain and catching in L knee Farshad Test Test Results positive (L) Comments palpable and audible clicking Javed's Test Results negative Comments no excessive tibial translation Anterior Draw Test Results negative Comments no excessive tibial motion PT-OP-M Strength Start: 06/01/23 10:31 Freq: Status: Active Protocol: Document 06/01/23 10:31 NM (Rec: 06/01/23 11:18 NM [id number]) Hip Strength Hip Manual Muscle Testing Left Flexion (L2) 4 Good Extension (S1) 4+ Good+ Abduction 4+ Good+ Adduction 4+ Good+ External Rotation 4+ Good+ Internal Rotation 4+ Good+ Right Flexion (L2) 4 Good Extension (S1) 4+ Good+ Abduction 4+ Good+ Adduction 4+ Good+ External Rotation 4+ Good+ Internal Rotation 4+ Good+ Knee Strength Knee Manual Muscle Testing Right Flexion (S2) 4+ Good+ Extension (L3) 4- Good- Left Flexion (S2) 4- Good- Extension (L3) 4- Good- Comments Extension reproduces pain in posterior knee PT-OP-Q Treatments Start: 06/01/23 10:31 Freq: Status: Active Protocol: Document 06/28/23 08:16 NM (Rec: 06/28/23 09:01 NM [id number]) Cardio Equipment Elliptical Duration (Minutes) 4 Resistance 7 Other Trialed: warm up, feels in quad but no knee pain; click Gym Equipment Shuttle Recovery bilateral squat Details ball btwn knees for VMO/add w/ o valgus; not painful Resistance 75# (davy) Shuttle Recovery Platform Stable Reps/Time 2x15; above 90 deg to prevent meniscus strain/click unilateral squat Details cues for TKE without locked knee; reports click with ext Resistance 50# dark navy Shuttle Recovery Platform Stable Reps/Time 2x15 Therapeutic Exercises Supine Exercises nate stretch Supine Exercise Name for hip flexors Side bilateral Equipment Used leg off table for greater stretch Reps/Minutes 1x60 Comments reports good feedback with stretch Standing Exercises step up Standing Exercise Name 8 step up Side left Equipment Used prn hand rail use for stability Reps/Minutes 2x10 Comments cue for no opp hop drop, tactile cue to lift R hip eccentric step down fwd Standing Exercise Name lateral Side left Resistance 4 step Equipment Used light contact hand rail for balance Reps/Minutes 2x10 Comments cued knee alignment over foot, no opp hip drop Neuro Re-Education Treatment Movement Re-Education Movement Re-education Activities 1. Bilateral squat Pt performing B squat to chair . Lvl 2 Band around thighs to cue to limit knee valgus. Demos slight translation to RLE at hips. PT manually cueing at hips, verbal cues to keep belly button in center of mirror. Improved form with repetitions. Issued as HEP 2x8 Stopped for nate stretch in between sets due to reports of ant hip tightness, whcih improved after stretching, then continued for 2nd set. 2. Trialed: Unilateral squat Mirror for visual cue, chair behind for tactile cue. Verbal cues to hip hinge back toward chair for greater glute activation. Demos slight knee valgus during descent, but no clicking/popping. R hand 2 finger support on chair for balance. 1x5 Self-Care/Home Management Treatment Education Patient Education Home Exercise Program Other Education HEP: B squat with mirror for visual cue, nate stretch PT-OP-T Assessment and Plan Start: 06/01/23 10:31 Freq: Status: Active Protocol: Document 06/28/23 08:16 NM (Rec: 06/28/23 09:01 NM [id number]) Physical Therapy Assessment Goals Six Impairment strength, function Short Term Goal (STG) Pt will demonstrate improved eccentric control with eccentric step downs for at least 5 reps with <2/10 pain in order to demonstrate improved quad control, hip strength, and activity tolerance. Material Mixer Goal (LTG) Pt will demonstrate improved eccentric control with eccentric step downs for at least 10 reps with <2/10 pain in order to demonstrate improved quad control, hip strength, and activity tolerance. LTG Duration 8 weeks Five Impairment strength Short Term Goal (STG) Pt will be able to perform at least 1 rep of single leg squats using good form and without knee valgus compensation in order to demonstrate improved quad control and hip strength for return to running. STG Duration 4 weeks Material Mixer Goal (LTG) Pt will be able to perform at least 3 rep of single leg squats using good form and without knee valgus compensation in order to demonstrate improved quad control and hip strength for return to running. LTG Duration 8 weeks Four Impairment strength, function Short Term Goal (STG) Pt will demonstrate equal bilateral squats x5 reps without compensation in order to show improved L knee ROM, strength, and tolerance for ADLs. 06/28/23: Demos slight translation to R side, decreased with tactile cueing at hips and mirror for visual feedback STG Duration 4 weeks Material Mixer Goal (LTG) Pt will demonstrate equal bilateral squats x10 reps without compensation in order to show improved L knee ROM, strength, and tolerance for ADLs. LTG Duration 8 weeks Three Impairment strength Short Term Goal (STG) Pt will improve L knee flex and ext MMT score to at least 4/5 in order to demonstrate improved strength required for ambulation, running, and stairs. STG Duration 4 weeks Material Mixer Goal (LTG) Pt will improve L knee flex and ext MMT score to at least 4+/5 in order to demonstrate improved strength required for ambulation, running, and stairs. LTG Duration 8 weeks Two Impairment ROM Material Mixer Goal (LTG) Pt will increase L knee ext AROM to within 3 degrees of R knee extension for improved terminal knee extension during gait. LTG Duration 8 weeks One Impairment function Impairment LEFS: 68/80 Residential Goal (LTG) Pt will increase LEFS score by at least 9 points (MCID) in order to demonstrate improved L knee function, ADL tolerance . LTG Duration 8 weeks Assessment Summary Assessment Pt tolerated treatment well without any increase in pain. Treatment focus on strengthening quads and glutes to decrease strain on L meniscus. Initiated standing bilateral and single leg squat retraining with mirror as visual cue and chair behind pt as cue for glute activation/ hip hinge. PT cueing pt verbally and occasional tactile cueing at hips to promote to prevent hip rotation and initial cue to hinge at hip. Added nate stretch to decrease pt hip flexor pain during squat, resolved after stretching. Trialed 8 step up with prn rail use for balance for further quad strengthening and glute activation; cued to prevent opposite hip drop during step up, demos good movement onto step so TESSA over midfoot. Trialed elliptical today as pt wants to return to running; able tolerate with good quad activation, no pain, and minimal reports of clicking in L knee. Pt missed MRI last week due to another appt and is trying to reschedule, which PT recommends. Pt would benefit from skilled PT to address impairments in LLE hip strength in addition to activity modification in order to decrease pain symptoms, improve activity tolerance and QOL. Physical Therapy Plan Frequency and Duration Frequency of Treatment 2x/Week Duration of treatment (weeks) 8 Plan of Care Start Date 06/01/23 Plan of Care End Date 07/27/23 Therapeutic Interventions Therapeutic Interventions Balance Training,Coordination Training,Gait Training,Home Exercise Program,Joint Mobilizations,Manual Therapy, Neuromuscular Re-education, Orthotic/Prosthetic Management ,Patient/Caregiver Education, Self-Care/Home Management, Sensory Integration,Soft Tissue Mobilization,Taping, Therapeutic Activities, Therapeutic Exercises Modalities Biofeedback,Cold Pack/Ice Massage,Electric Stimulation, Hot Packs,Infrared Therapy, Iontophoresis,Paraffin Bath, Ultrasound,Vasopneumatic Devices Next Visit Focus/Plan Next Note Type Treatment Note Next Visit Plan Manual: soft tissue of knee/ quad/HS/post quad, patellar mobilizations POC: glute max/med strengthening, knee re- education. Next session: SL squat to chair, B squat retraining; step up/down; trial single leg clock with slider Trial: 4-6 step up, mini lunge, plank, single leg squat with UE support (if challenge needed). Add exercise to target VMO/ADD to prevent lateral patellar tracking. Limit knee flex (not below 90 deg). Continue hip strengthening. Add stretching for calf, hip flex/ext, possibly quad depending on tolerance
--- NOTE | 2023-06-30 07:45 | PT-OP ANOTE ---
PT called at 0745 and left a message for pt as she had an appt today at 0730 but did not attend. Pt's just had surgery, so she has been caring for him. PT reminded pt of cancelation policy/attendance policy and next appt on 07/05 at 1430.
--- NOTE | 2023-07-05 15:52 | PT.OTN ---
Current Diagnoses Synovial cyst of popliteal space [Gauthier], unspecified knee (07/05/23) Strain of unspecified muscle(s) and tendon(s) at lower leg level, left leg, initial encounter (07/05/23) Physical Therapy Treatment Note PT-OP-A Visit Information Start: 06/01/23 10:31 Freq: Status: Active Protocol: Document 07/05/23 14:34 NM (Rec: 07/05/23 14:40 NM [id number]) Out-Patient Physical Therapy Visit Information Visit Information Visit Type Progress Note Visit Note KX modifier after 19 ST/PT visit Pt late Visit Start Time 20:34 Visit Stop Time 15:15 Visit Number 6 Evaluation Information Evaluation Date 06/01/23 PT-OP-B Current Condition Start: 06/01/23 10:31 Freq: Status: Active Protocol: Document 06/01/23 10:31 NM (Rec: 06/01/23 11:18 NM [id number]) Current Condition History of Current Condition Onset Date January 2023 Current Complaints L knee History of Current Condition Pt was working with her horse, when he got spooked. She jumped off the mounting block, landing on her L knee in standing. She felt off a pop on her L knee (landed on her feet) on the lateral side, with a varus force. It was swollen and she had limited weight bearing. Came to ED ( did x ray) in January, was given a knee ext brace to wear temporarily, which pt has not been wearing since January. She reports that her pain is intermittent but she still gets occasional pain laterally . She has worse pain walking down hill, unable to run (2 mi /day); she is able to run along side her horse but reports pain. Generally, she reports no pain overall, except in coming to stand is difficult from a squat. Reports popping with knee ext. She reports no instances of her knee buckling or giving out, but does report that sometimes her knee feels like it could. Prior Treatments and Tests L knee PMH: partial ACL tear ( still partial tear), meniscus bucket handle tear (repair), tibial plateau frx with screws ; gauthier's cyst (previous swollen) Radiographs 02/03/23: no acute fracture; no MRI performed Prior Functional Status Baseline Function- ADL's Independent Baseline Function- Mobility Independent Baseline Function- Gait run 2 mi/day (6-8 mi/wk) Baseline Function- Recreation/Hobbies Rides horses Current Functional Impairments (Reported) Functional Limitations- Mobility/Gait unable to run, walk down hills , landing on LLE Functional Limitations- Recreation/ Able to ride horses but must Hobbies dismount on R knee PT-OP-C Subjective Start: 06/01/23 10:31 Freq: Status: Active Protocol: Document 07/05/23 14:34 NM (Rec: 07/05/23 14:42 NM [id number]) OP-PT Subjective Patient Comments Patient Comments Pt reports constant 2/10 L knee pain, which is worse for her. She has tried running on the treadmill for 1/2 mi and 6 /10 of a mile for a very slow; stopped both time due to pain . Has not rescheduled MRI. Was working with her horse this morning, walking on uneven ground, which makes her L knee hurt. Pt has had increased clicking and stiffness; reports increased incidence of catching. She reports compliance with HEP and no difficulty with any exercises. PT-OP-E Functional Tests Start: 06/01/23 10:31 Freq: Status: Active Protocol: Document 06/01/23 10:31 NM (Rec: 06/01/23 11:18 NM [id number]) Functional Tests Squat Test Score 10 B squats Comments able to perform deep squat but min pain, knee valgus, heels rise Single Leg Squat Test Score x1 LLE (RLE minimal valgus, better stability, no opposite hip drop) Comment no knee pain reported, demos knee valgus, foot pronation, R hip drop Other Single Leg Stance Score 25 sec LLE Comment demos valgus, mod instability at ankle (RLE 5 sec, more unstable) PT-OP-F Manual Assessment Start: 06/01/23 10:31 Freq: Status: Active Protocol: Document 06/01/23 10:31 NM (Rec: 06/01/23 11:18 NM [id number]) Manual Assessments Soft Tissue Assessment Soft Tissue Mobility Assessment Demos tenderness at posterior knee (hx of gauthier's cyst) with slight, palpable bulge. Joint Mobility Assessment Joint Mobility Assessment No valgus instability, minimal varus instability compared to R knee. Tenderness of L knee lateral joint line. Demos palpable/audible clicking with flexion/extension. No anterior or posterior instability of L knee, comparable to R knee. PT-OP-G Mobility & Gait Start: 06/01/23 10:31 Freq: Status: Active Protocol: Document 06/01/23 10:31 NM (Rec: 06/01/23 11:18 NM [id number]) OP Gait Assessment Comments Gait Comments antalgic Stair Climbing Evaluation Comments Stair Climbing Comments Eccentric control of LLE decreased compared to RLE. Demos mild knee valgus with foot pronation with descent and decreased quad control. PT-OP-H Neuro Start: 06/01/23 10:31 Freq: Status: Active Protocol: Document 06/01/23 10:31 NM (Rec: 06/01/23 11:18 NM [id number]) Sensation Evaluation Gross Sensation Gross Sensation Left LE Impaired Comments Summary Comments Pt demos slightly decreased sensation along L side in L3-4 dermatomes compared to RLE. Intact but decreased PT-OP-J Posture/Palpation/Skin Start: 06/01/23 10:31 Freq: Status: Active Protocol: Document 06/01/23 10:31 NM (Rec: 06/01/23 11:18 NM [id number]) Posture Evaluation Position Standing Evaluation View Anterior Pelvis Posture Neutral Weight Distribution Weight Shifted Right Knee Posture (L) Neutral,(R) Neutral Palpation Assessment Location L knee Palpation Location posterior knee, lateral knee, anterior knee Palpation Findings Soft Tissue Tightness,Muscle Guarding,Tenderness Palpation Details Tenderness along ant knee at patellar tendon, minimal tenderness along lateral joint line. No tenderness along medial joint line. Min tenderness and palpable bulge behind L knee PT-OP-K Range of Motion Start: 06/01/23 10:31 Freq: Status: Active Protocol: Document 07/05/23 14:34 NM (Rec: 07/05/23 14:40 NM [id number]) Knee Goniometric Range of Motion Knee Left Knee ROM WFL Yes Patient Position Supine Flexion Active (degrees) 130 Flexion Passive (degrees) 135 Extension Active (degrees) 5 Extension Passive (degrees) 0 Comments pain with flex and ext, anahi quad set. Pain with overpressure into flex and ext 07/05/23: 0 deg active knee ext; minimal anterior knee pain with quad set PT-OP-L Special Tests Start: 06/01/23 10:31 Freq: Status: Active Protocol: Document 01/02/24 10:31 NM (Rec: 06/01/23 11:18 NM [id number]) Special Tests Knee Special Tests Posterior Draw Test Results negative Comments no excessive tibial translation Varus- 25 Degrees Test Results positive Comments minimal translation compared to RLE, no pain reported Varus- 0 Degrees Test Results negative Comments no excessive translation Valgus- 25 Degrees Test Results negative Comments no excessive translation Valgus- 0 Degrees Test Results negative Comments no excessive translation [place]ssaly Test 20 Degrees Test Results positive (L) Comments reproduces pain and catching in L knee [place]ss[place] Test 5 Degrees Test Results positive (L) Comments reproduces pain and catching in L knee Farshad Test Test Results positive (L) Comments palpable and audible clicking Javed's Test Results negative Comments no excessive tibial translation Anterior Draw Test Results negative Comments no excessive tibial motion PT-OP-M Strength Start: 06/01/23 10:31 Freq: Status: Active Protocol: Document 07/05/23 14:34 NM (Rec: 07/05/23 14:42 NM [id number]) Knee Strength Knee Manual Muscle Testing Left Flexion (S2) 4- Good- Extension (L3) 4- Good- Comments Extension reproduces pain in posterior knee 07/05/23: 4/5 MMT; no pain with resisted flexion or extension PT-OP-Q Treatments Start: 06/01/23 10:31 Freq: Status: Active Protocol: Document 07/05/23 14:34 NM (Rec: 07/05/23 14:40 NM [id number]) Cardio Equipment Bicycle (Upright) Duration (Minutes) 6 Resistance 8 Seat Position 5 Other warm up due to stiffness Therapeutic Exercises Supine Exercises Bridge Supine Exercise Name trial single leg bridge next time Standing Exercises unilateral squat Standing Exercise Name twd chair Side left Resistance AROM Equipment Used mirror for visual cue; chair behind as target; chair on R side for balance Reps/Minutes 1x8 Comments cued to prevent knee valgus, oppostie hip drop and rotation squat Side bilateral Resistance chemehuevi green tb around thighs Equipment Used no mirror; use of proprioception to determine location Reps/Minutes 2x10 (1x5 without compensation , equal/bilateral) Comments mild deviation to L side as squat deepens with increased reps step up Standing Exercise Name 8 step up Side left Equipment Used prn hand rail use for stability Reps/Minutes 2x10 Comments cue for no opp hop drop, tactile cue to lift R hip eccentric step down fwd Standing Exercise Name fwd step down: 1. 4, 2. 6, 3 . 8 Side left Equipment Used prn hand rail use for balance; band around thighs to limit valgus Reps/Minutes 1. 1x5, 2. 2x10, 3. 1x5 (trial ) Comments cued knee alignment over foot, no opp hip drop Other Exercises rolling Other Exercise Name foam roll Side left Resistance quad, HS Reps/Minutes 2 min ea Comments good feedback with relaxation stretching Other Exercise Name hamstrin. static hamstring , 2. dynamic HS stretch Side bilateral Reps/Minutes 1. 1x30, 2. 5x10 Comments cue for correct execution; feels stretch near knee Manual Therapy Treatment Soft Tissue Mobilization L knee Body Location hamstring, posterior knee Mobilization Type Cross-Friction,Rolling, Strumming Intensity/Depth Moderate Body Position Supine Comments To decrease pain symptoms along lateral posterior knee near hamstring insertion. Pt with increased tenderness to palpation along L posterolateral knee; minimal pain relief with strumming, rolling, cross friction. Educated on rolling to decrease hamstring tightness, added to HEP for home (no handout) Joint Mobilizations L knee Joint patellar, tibiofemoral Direction Sup/inf, lat > med; post on femur, ant on tibia Grade II Body Position Supine Reps/Duration 4x30 Comments For improved patellar movement during knee flex/ext. Most limited in inf direction. To promote greater medial patellar motion and decrease lateral tracking. Mobilized throughout various ranges of knee flexion Tibiofemoral mobilization for pain reduction a into terminal knee ext. Pt now with 0 deg knee ext with quad set. Added oscillations with knee slightly flexed for pain relief Self-Care/Home Management Treatment Education Patient Education Home Exercise Program,Joint Protection,Pain Management, Safety Other Education 5 min: Educated on modalities and foam rolling for pain symptom management. HEP: dynamic hamstring stretch and eccentric step down (fwd) from 6 step. PT also educated on not continuing to run as she reports increased knee pain after attempting to run on the treadmill recently due to effect of increased impact on knee. PT-OP-T Assessment and Plan Start: 06/01/23 10:31 Freq: Status: Active Protocol: Document 07/05/23 14:34 NM (Rec: 07/05/23 14:40 NM [id number]) Physical Therapy Assessment Goals Six Impairment strength, function Short Term Goal (STG) Pt will demonstrate improved eccentric control with eccentric step downs for at least 5 reps with <2/10 pain in order to demonstrate improved quad control, hip strength, and activity tolerance. 07/05/23: No pain with eccentric step down x5 reps from 6 step; demos knee valgus (has anterior knee pain with 8 step down) STG Duration 4 weeks PROGRESSING Fdc Goal (LTG) Pt will demonstrate improved eccentric control with eccentric step downs for at least 10 reps with <2/10 pain in order to demonstrate improved quad control, hip strength, and activity tolerance. LTG Duration 8 weeks Five Impairment strength Short Term Goal (STG) Pt will be able to perform at least 1 rep of single leg squats using good form and without knee valgus compensation in order to demonstrate improved quad control and hip strength for return to running. 07/05/23: 1 rep, demos knee valgus, ipsilateral hip drop STG Duration 4 weeks MET Tick Eradicator Goal (LTG) Pt will be able to perform at least 3 rep of single leg squats using good form and without knee valgus compensation in order to demonstrate improved quad control and hip strength for return to running. LTG Duration 8 weeks Four Impairment strength, function Short Term Goal (STG) Pt will demonstrate equal bilateral squats x5 reps without compensation in order to show improved L knee ROM, strength, and tolerance for ADLs. 07/05/23: Demos equal bilateral squat x 5 reps without cueing to chair; no pain 06/28/23: Demos slight translation to R side, decreased with tactile cueing at hips and mirror for visual feedback STG Duration 4 weeks MET Tick Eradicator Goal (LTG) Pt will demonstrate equal bilateral squats x10 reps without compensation in order to show improved L knee ROM, strength, and tolerance for ADLs. LTG Duration 8 weeks Three Impairment strength Short Term Goal (STG) Pt will improve L knee flex and ext MMT score to at least 4/5 in order to demonstrate improved strength required for ambulation, running, and stairs. 07/05/23: 4/5, no pain with resisted contraction STG Duration 4 weeks MET Tick Eradicator Goal (LTG) Pt will improve L knee flex and ext MMT score to at least 4+/5 in order to demonstrate improved strength required for ambulation, running, and stairs. LTG Duration 8 weeks Two Impairment ROM Tick Eradicator Goal (LTG) Pt will increase L knee ext AROM to within 3 degrees of R knee extension for improved terminal knee extension during gait. 07/05/23: 0 deg ext, painful (2/ 10) LTG Duration 8 weeks MET One Impairment function Impairment LEFS: 68/80 Fdc Goal (LTG) Pt will increase LEFS score by at least 9 points (MCID) in order to demonstrate improved L knee function, ADL tolerance . 07/05/23: 63/80 (decrease since IE due to increased pain currently) LTG Duration 8 weeks Progress Towards Goals Progress Towards Goals Progressing Toward Goals Progress Comments Meeting STGs, progressing toward LTGs Assessment Summary Assessment Pt tolerated treatment well without any increased pain. She only has pain with active ROM, ext>flex, in addition to during higher level activity. Pt demos improved equal weight bearing during squats with fewer deviations until she fatigues. Continued to limit squat depth to decrease strain on L knee. Trialed single leg squat with UE support; however, pt demos increased knee valgus and poor hip stability as TESSA decreases. Verbal and visual cues provided to limit knee valgus and hip rotation. Pt also demos improved pelvis and knee control with eccentric step downs from 4 and 6 step; she continues to have slight anterior knee pain when attempting 8 eccentric step down and poor knee/hip control . Manual treatment consisting of pain reduction, increasing L knee mobility, and improving surrounding soft tissue extensibility of R knee. Pt recently began running again; PT educated pt on how high impact activity is increasing current pain levels and strongly discouraged continuing to run at this time . Pt has been seen x5 treatment sessions since IE. She continues to have L knee swelling, stiffness, and increasing reports of clicking and catching. Pt is progressing toward PT goals and has met several STGs. She has improved L knee ext ROM, but it is still painful. L knee strength has also improved. Pt is limited in her ability to participate fully in recreational activities and IADLs. PT left message for pt 's PCP on 06/21 to recommend referral to ortho and imaging as pt's symptoms have minimally improved since initial injury in January 2023. Pt would benefit from progressive hip and knee strengthening in order to improve L knee stability, decrease pain symptoms, and improve activity tolerance. Physical Therapy Plan Frequency and Duration Frequency of Treatment 2x/Week Duration of treatment (weeks) 8 Plan of Care Start Date 06/01/23 Plan of Care End Date 07/27/23 Therapeutic Interventions Therapeutic Interventions Balance Training,Coordination Training,Gait Training,Home Exercise Program,Joint Mobilizations,Manual Therapy, Neuromuscular Re-education, Orthotic/Prosthetic Management ,Patient/Caregiver Education, Self-Care/Home Management, Sensory Integration,Soft Tissue Mobilization,Taping, Therapeutic Activities, Therapeutic Exercises Modalities Biofeedback,Cold Pack/Ice Massage,Electric Stimulation, Hot Packs,Infrared Therapy, Iontophoresis,Paraffin Bath, Ultrasound,Vasopneumatic Devices Other Referrals/Consults Referrals/Consults Recommended Referral to ortho depending on pt tolerance to exercise or increased reports of instability Next Visit Focus/Plan Next Note Type Treatment Note Next Visit Plan Manual: soft tissue of knee/ quad/HS/post quad, patellar mobilizations POC: glute max/med strengthening, knee re- education. Next session: SL squat to chair, B squat retraining; step up/down; trial single leg clock with slider; SL bridge Trial: 4-6 step up, mini lunge, plank, single leg squat with UE support (if challenge needed).Limit knee flex (not below 90 deg). Continue hip strengthening. Add stretching for calf, hip flex/ext, possibly quad depending on tolerance
--- NOTE | 2023-07-08 09:45 | PT.OTN ---
Current Diagnoses Synovial cyst of popliteal space [Gauthier], unspecified knee (07/08/23) Strain of unspecified muscle(s) and tendon(s) at lower leg level, left leg, initial encounter (07/08/23) Physical Therapy Treatment Note PT-OP-A Visit Information Start: 06/01/23 10:31 Freq: Status: Active Protocol: Document 07/08/23 09:07 SP (Rec: 07/08/23 09:50 SP [id number]) Out-Patient Physical Therapy Visit Information Visit Information Visit Type Treatment Note Visit Note KX modifier after 19 ST/PT visit Visit Start Time 09:06 Visit Stop Time 09:45 Visit Number 7 Number of PROP SAWYER Visits 1 Evaluation Information Evaluation Date 06/01/23 PT-OP-B Current Condition Start: 06/01/23 10:31 Freq: Status: Active Protocol: Document 06/01/23 10:31 NM (Rec: 06/01/23 11:18 NM [id number]) Current Condition History of Current Condition Onset Date January 2023 Current Complaints L knee History of Current Condition Pt was working with her horse, when he got spooked. She jumped off the mounting block, landing on her L knee in standing. She felt off a pop on her L knee (landed on her feet) on the lateral side, with a varus force. It was swollen and she had limited weight bearing. Came to ED ( did x ray) in January, was given a knee ext brace to wear temporarily, which pt has not been wearing since January. She reports that her pain is intermittent but she still gets occasional pain laterally . She has worse pain walking down hill, unable to run (2 mi /day); she is able to run along side her horse but reports pain. Generally, she reports no pain overall, except in coming to stand is difficult from a squat. Reports popping with knee ext. She reports no instances of her knee buckling or giving out, but does report that sometimes her knee feels like it could. Prior Treatments and Tests L knee PMH: partial ACL tear ( still partial tear), meniscus bucket handle tear (repair), tibial plateau frx with screws ; gauthier's cyst (previous swollen) Radiographs 02/03/23: no acute fracture; no MRI performed Prior Functional Status Baseline Function- ADL's Independent Baseline Function- Mobility Independent Baseline Function- Gait run 2 mi/day (6-8 mi/wk) Baseline Function- Recreation/Hobbies Rides horses Current Functional Impairments (Reported) Functional Limitations- Mobility/Gait unable to run, walk down hills , landing on LLE Functional Limitations- Recreation/ Able to ride horses but must Hobbies dismount on R knee PT-OP-C Subjective Start: 06/01/23 10:31 Freq: Status: Active Protocol: Document 07/08/23 09:07 SP (Rec: 07/08/23 09:50 SP [id number]) OP-PT Subjective Patient Comments Patient Comments Pt reports mostly stiff upon arrival. She reports still has pain at times that just starts, even sitting. She reports compliant with HEP including stretching and rolling which did before starting PT. She stated HEP doesn't seem to taxing. PT-OP-E Functional Tests Start: 06/01/23 10:31 Freq: Status: Active Protocol: Document 06/01/23 10:31 NM (Rec: 06/01/23 11:18 NM [id number]) Functional Tests Squat Test Score 10 B squats Comments able to perform deep squat but min pain, knee valgus, heels rise Single Leg Squat Test Score x1 LLE (RLE minimal valgus, better stability, no opposite hip drop) Comment no knee pain reported, demos knee valgus, foot pronation, R hip drop Other Single Leg Stance Score 25 sec LLE Comment demos valgus, mod instability at ankle (RLE 5 sec, more unstable) PT-OP-F Manual Assessment Start: 06/01/23 10:31 Freq: Status: Active Protocol: Document 06/01/23 10:31 NM (Rec: 06/01/23 11:18 NM [id number]) Manual Assessments Soft Tissue Assessment Soft Tissue Mobility Assessment Demos tenderness at posterior knee (hx of gauthier's cyst) with slight, palpable bulge. Joint Mobility Assessment Joint Mobility Assessment No valgus instability, minimal varus instability compared to R knee. Tenderness of L knee lateral joint line. Demos palpable/audible clicking with flexion/extension. No anterior or posterior instability of L knee, comparable to R knee. PT-OP-G Mobility & Gait Start: 06/01/23 10:31 Freq: Status: Active Protocol: Document 06/01/23 10:31 NM (Rec: 06/01/23 11:18 NM [id number]) OP Gait Assessment Comments Gait Comments antalgic Stair Climbing Evaluation Comments Stair Climbing Comments Eccentric control of LLE decreased compared to RLE. Demos mild knee valgus with foot pronation with descent and decreased quad control. PT-OP-H Neuro Start: 06/01/23 10:31 Freq: Status: Active Protocol: Document 06/01/23 10:31 NM (Rec: 06/01/23 11:18 NM [id number]) Sensation Evaluation Gross Sensation Gross Sensation Left LE Impaired Comments Summary Comments Pt demos slightly decreased sensation along L side in L3-4 dermatomes compared to RLE. Intact but decreased PT-OP-J Posture/Palpation/Skin Start: 06/01/23 10:31 Freq: Status: Active Protocol: Document 06/01/23 10:31 NM (Rec: 06/01/23 11:18 NM [id number]) Posture Evaluation Position Standing Evaluation View Anterior Pelvis Posture Neutral Weight Distribution Weight Shifted Right Knee Posture (L) Neutral,(R) Neutral Palpation Assessment Location L knee Palpation Location posterior knee, lateral knee, anterior knee Palpation Findings Soft Tissue Tightness,Muscle Guarding,Tenderness Palpation Details Tenderness along ant knee at patellar tendon, minimal tenderness along lateral joint line. No tenderness along medial joint line. Min tenderness and palpable bulge behind L knee PT-OP-K Range of Motion Start: 06/01/23 10:31 Freq: Status: Active Protocol: Document 07/05/23 14:34 NM (Rec: 07/05/23 14:40 NM [id number]) Knee Goniometric Range of Motion Knee Left Knee ROM WFL Yes Patient Position Supine Flexion Active (degrees) 130 Flexion Passive (degrees) 135 Extension Active (degrees) 5 Extension Passive (degrees) 0 Comments pain with flex and ext, anahi quad set. Pain with overpressure into flex and ext 07/05/23: 0 deg active knee ext; minimal anterior knee pain with quad set PT-OP-L Special Tests Start: 06/01/23 10:31 Freq: Status: Active Protocol: Document 06/01/23 10:31 NM (Rec: 06/01/23 11:18 NM [id number]) Special Tests Knee Special Tests Posterior Draw Test Results negative Comments no excessive tibial translation Varus- 25 Degrees Test Results positive Comments minimal translation compared to RLE, no pain reported Varus- 0 Degrees Test Results negative Comments no excessive translation Valgus- 25 Degrees Test Results negative Comments no excessive translation Valgus- 0 Degrees Test Results negative Comments no excessive translation [place]ss[place] Test 20 Degrees Test Results positive (L) Comments reproduces pain and catching in L knee [place]ss[place] Test 5 Degrees Test Results positive (L) Comments reproduces pain and catching in L knee Farshad Test Test Results positive (L) Comments palpable and audible clicking Javed's Test Results negative Comments no excessive tibial translation Anterior Draw Test Results negative Comments no excessive tibial motion PT-OP-M Strength Start: 06/01/23 10:31 Freq: Status: Active Protocol: Document 07/05/23 14:34 NM (Rec: 07/05/23 14:42 NM [id number]) Knee Strength Knee Manual Muscle Testing Left Flexion (S2) 4- Good- Extension (L3) 4- Good- Comments Extension reproduces pain in posterior knee 07/05/23: 4/5 MMT; no pain with resisted flexion or extension PT-OP-Q Treatments Start: 06/01/23 10:31 Freq: Status: Active Protocol: Document 07/08/23 09:07 SP (Rec: 07/08/23 09:50 SP [id number]) Cardio Equipment Bicycle (Upright) Duration (Minutes) 5 Resistance 8 Seat Position 5 Other warm up due to stiffness Gym Equipment Shuttle Recovery unilateral squat Details cues for TKE without locked knee; reports click with ext Resistance 50# dark Zuu On[employer]ine Shuttle Recovery Platform Stable Reps/Time x20- slight clicking, tension medial L knee Therapeutic Exercises Supine Exercises nate stretch Supine Exercise Name for hip flexors Side left Equipment Used leg off table for greater stretch Reps/Minutes 1x60 Comments reports good feedback with stretch Standing Exercises SL RDL Standing Exercise Name initiated in PT Equipment Used dowel, use mirror for self postural and knee alignment corrections Reps/Minutes multiple Comments cued rhomboid with elongated posture/core/hip abd hip hinge , knee alignment lateral sliders Standing Exercise Name added to HEP: 12, 3, 4, 6o' clock Side bilateral Resistance L>R Equipment Used TB #1 loop at ankles assist decreased calf recruitment Reps/Minutes 5 reps x3 sets Comments cued hip hinge for glut med fac vs calf stretching Standing Exercise Name TFL, ITB @ wall and 1/2 kneel LL hip IR Side left Resistance self review performs Reps/Minutes 3 reps 15 SH Comments cued pelvic repositioning for TFL focus Other Exercises rolling Other Exercise Name ball wall TFL Side left Equipment Used racquetball Reps/Minutes 2 min ea Comments good feedback with relaxation Manual Therapy Treatment Soft Tissue Mobilization L knee Body Location L Distal hamstring, lateral superior gastroc Mobilization Type Rolling,Sustained Pressure, Other Intensity/Depth Moderate Body Position Supine Comments manual STMs and MWM DF/PF range good pressure massage distal gastroc> distal HS, self application instruction found MWW more effective releasing. Joint Mobilizations L knee Joint patellar, tibiofemoral, tibofibular (prox and distal) Direction Sup/inf, lat > med; post on femur, ant on tibial, post fib on tibia Grade II Body Position Hooklying Reps/Duration 4x30 Comments Mobilized throughout various ranges of knee flexion. Tibiofemoral and tibiofibular mobilization for pain reduction into terminal knee ext. PT-OP-T Assessment and Plan Start: 06/01/23 10:31 Freq: Status: Active Protocol: Document 07/08/23 09:07 SP (Rec: 07/08/23 09:50 SP [id number]) Physical Therapy Assessment Goals Six Impairment strength, function Short Term Goal (STG) Pt will demonstrate improved eccentric control with eccentric step downs for at least 5 reps with <2/10 pain in order to demonstrate improved quad control, hip strength, and activity tolerance. 07/05/23: No pain with eccentric step down x5 reps from 6 step; demos knee valgus (has anterior knee pain with 8 step down) STG Duration 4 weeks PROGRESSING [facility] Goal (LTG) Pt will demonstrate improved eccentric control with eccentric step downs for at least 10 reps with <2/10 pain in order to demonstrate improved quad control, hip strength, and activity tolerance. LTG Duration 8 weeks Five Impairment strength Short Term Goal (STG) Pt will be able to perform at least 1 rep of single leg squats using good form and without knee valgus compensation in order to demonstrate improved quad control and hip strength for return to running. 07/05/23: 1 rep, demos knee valgus, ipsilateral hip drop STG Duration 4 weeks MET [employer] Goal (LTG) Pt will be able to perform at least 3 rep of single leg squats using good form and without knee valgus compensation in order to demonstrate improved quad control and hip strength for return to running. LTG Duration 8 weeks Four Impairment strength, function Short Term Goal (STG) Pt will demonstrate equal bilateral squats x5 reps without compensation in order to show improved L knee ROM, strength, and tolerance for ADLs. 07/05/23: Demos equal bilateral squat x 5 reps without cueing to chair; no pain 06/28/23: Demos slight translation to R side, decreased with tactile cueing at hips and mirror for visual feedback STG Duration 4 weeks MET [employer] Goal (LTG) Pt will demonstrate equal bilateral squats x10 reps without compensation in order to show improved L knee ROM, strength, and tolerance for ADLs. LTG Duration 8 weeks Three Impairment strength Short Term Goal (STG) Pt will improve L knee flex and ext MMT score to at least 4/5 in order to demonstrate improved strength required for ambulation, running, and stairs. 07/05/23: 4/5, no pain with resisted contraction STG Duration 4 weeks MET [employer] Goal (LTG) Pt will improve L knee flex and ext MMT score to at least 4+/5 in order to demonstrate improved strength required for ambulation, running, and stairs. LTG Duration 8 weeks Two Impairment ROM [employer] Goal (LTG) Pt will increase L knee ext AROM to within 3 degrees of R knee extension for improved terminal knee extension during gait. 07/05/23: 0 deg ext, painful (2/ 10) LTG Duration 8 weeks MET One Impairment function Impairment LEFS: 68/80 [facility] Goal (LTG) Pt will increase LEFS score by at least 9 points (MCID) in order to demonstrate improved L knee function, ADL tolerance . 07/05/23: 63/80 (decrease since IE due to increased pain currently) LTG Duration 8 weeks Assessment Summary Assessment Pt challenged but improved LLE SL stability post SL sliders for hip strengthening engagement best with resistance band dec calf and foot intrinsic recruitment. Required tactil & V cuing and use mirror for self corrections alignment trunk and knee with /behind forefoot stability, painfree in L knee . Good feedback response to self MWM distal gastroc STMs and TFL tension use ball on wall for carryover home support needed. Physical Therapy Plan Frequency and Duration Frequency of Treatment 2x/Week Duration of treatment (weeks) 8 Plan of Care Start Date 06/01/23 Plan of Care End Date 07/27/23 Therapeutic Interventions Therapeutic Interventions Balance Training,Coordination Training,Gait Training,Home Exercise Program,Joint Mobilizations,Manual Therapy, Neuromuscular Re-education, Orthotic/Prosthetic Management ,Patient/Caregiver Education, Self-Care/Home Management, Sensory Integration,Soft Tissue Mobilization,Taping, Therapeutic Activities, Therapeutic Exercises Modalities Biofeedback,Cold Pack/Ice Massage,Electric Stimulation, Hot Packs,Infrared Therapy, Iontophoresis,Paraffin Bath, Ultrasound,Vasopneumatic Devices Other Referrals/Consults Referrals/Consults Recommended Referral to ortho depending on pt tolerance to exercise or increased reports of instability Next Visit Focus/Plan Next Note Type Treatment Note Next Visit Plan Manual: soft tissue of knee/ quad/HS/post quad, patellar mobilizations POC: glute max/med strengthening, knee re- education. Next session: SL squat to chair, B squat retraining; step up/down; check single leg clock with slider with TB added to HEP; add SL bridge Trial: 4-6 step up, mini lunge, plank, single leg squat with UE support (if challenge needed).Limit knee flex (not below 90 deg). Continue hip strengthening. Add stretching for calf, hip flex/ext, possibly quad depending on tolerance
--- NOTE | 2023-07-12 13:00 | PT.OTN ---
Current Diagnoses Synovial cyst of popliteal space [Gauthier], unspecified knee (07/12/23) Strain of unspecified muscle(s) and tendon(s) at lower leg level, left leg, initial encounter (07/12/23) Physical Therapy Treatment Note PT-OP-A Visit Information Start: 06/01/23 10:31 Freq: Status: Active Protocol: Document 07/12/23 12:14 SP (Rec: 07/12/23 13:06 SP [id number]) Out-Patient Physical Therapy Visit Information Visit Information Visit Type Treatment Note Visit Note KX modifier after ST/PT visit 08/07 post PN Visit Start Time 12:15 Visit Stop Time 13:00 Visit Number 8 Number of BOBTAIL [employer]IVER Visits 2 PT-OP-B Current Condition Start: 06/01/23 10:31 Freq: Status: Active Protocol: Document 06/01/23 10:31 NM (Rec: 06/01/23 11:18 NM [id number]) Current Condition History of Current Condition Onset Date January 2023 Current Complaints L knee History of Current Condition Pt was working with her horse, when he got spooked. She jumped off the mounting block, landing on her L knee in standing. She felt off a pop on her L knee (landed on her feet) on the lateral side, with a varus force. It was swollen and she had limited weight bearing. Came to ED ( did x ray) in January, was given a knee ext brace to wear temporarily, which pt has not been wearing since January. She reports that her pain is intermittent but she still gets occasional pain laterally . She has worse pain walking down hill, unable to run (2 mi /day); she is able to run along side her horse but reports pain. Generally, she reports no pain overall, except in coming to stand is difficult from a squat. Reports popping with knee ext. She reports no instances of her knee buckling or giving out, but does report that sometimes her knee feels like it could. Prior Treatments and Tests L knee PMH: partial ACL tear ( still partial tear), meniscus bucket handle tear (repair), tibial plateau frx with screws ; gauthier's cyst (previous swollen) Radiographs 02/03/23: no acute fracture; no MRI performed Prior Functional Status Baseline Function- ADL's Independent Baseline Function- Mobility Independent Baseline Function- Gait run 2 mi/day (6-8 mi/wk) Baseline Function- Recreation/Hobbies Rides horses Current Functional Impairments (Reported) Functional Limitations- Mobility/Gait unable to run, walk down hills , landing on LLE Functional Limitations- Recreation/ Able to ride horses but must Hobbies dismount on R knee PT-OP-C Subjective Start: 06/01/23 10:31 Freq: Status: Active Protocol: Document 07/12/23 12:14 SP (Rec: 07/12/23 13:06 SP [id number]) OP-PT Subjective Patient Comments Patient Comments Pt reports feels pretty good today, not doing HEP every day , taking day here and there off. She feels the pain lateral post knee but less. She did trial planks off elbows and Tball under her and felt same pain.She reports rode horse and didnt hurt as much. PT-OP-E Functional Tests Start: 06/01/23 10:31 Freq: Status: Active Protocol: Document 06/01/23 10:31 NM (Rec: 06/01/23 11:18 NM [id number]) Functional Tests Squat Test Score 10 B squats Comments able to perform deep squat but min pain, knee valgus, heels rise Single Leg Squat Test Score x1 LLE (RLE minimal valgus, better stability, no opposite hip drop) Comment no knee pain reported, demos knee valgus, foot pronation, R hip drop Other Single Leg Stance Score 25 sec LLE Comment demos valgus, mod instability at ankle (RLE 5 sec, more unstable) PT-OP-F Manual Assessment Start: 06/01/23 10:31 Freq: Status: Active Protocol: Document 06/01/23 10:31 NM (Rec: 06/01/23 11:18 NM [id number]) Manual Assessments Soft Tissue Assessment Soft Tissue Mobility Assessment Demos tenderness at posterior knee (hx of gauthier's cyst) with slight, palpable bulge. Joint Mobility Assessment Joint Mobility Assessment No valgus instability, minimal varus instability compared to R knee. Tenderness of L knee lateral joint line. Demos palpable/audible clicking with flexion/extension. No anterior or posterior instability of L knee, comparable to R knee. PT-OP-G Mobility & Gait Start: 06/01/23 10:31 Freq: Status: Active Protocol: Document 06/01/23 10:31 NM (Rec: 06/01/23 11:18 NM [id number]) OP Gait Assessment Comments Gait Comments antalgic Stair Climbing Evaluation Comments Stair Climbing Comments Eccentric control of LLE decreased compared to RLE. Demos mild knee valgus with foot pronation with descent and decreased quad control. PT-OP-H Neuro Start: 06/01/23 10:31 Freq: Status: Active Protocol: Document 06/01/23 10:31 NM (Rec: 06/01/23 11:18 NM [id number]) Sensation Evaluation Gross Sensation Gross Sensation Left LE Impaired Comments Summary Comments Pt demos slightly decreased sensation along L side in L3-4 dermatomes compared to RLE. Intact but decreased PT-OP-J Posture/Palpation/Skin Start: 06/01/23 10:31 Freq: Status: Active Protocol: Document 06/01/23 10:31 NM (Rec: 06/01/23 11:18 NM [id number]) Posture Evaluation Position Standing Evaluation View Anterior Pelvis Posture Neutral Weight Distribution Weight Shifted Right Knee Posture (L) Neutral,(R) Neutral Palpation Assessment Location L knee Palpation Location posterior knee, lateral knee, anterior knee Palpation Findings Soft Tissue Tightness,Muscle Guarding,Tenderness Palpation Details Tenderness along ant knee at patellar tendon, minimal tenderness along lateral joint line. No tenderness along medial joint line. Min tenderness and palpable bulge behind L knee PT-OP-K Range of Motion Start: 06/01/23 10:31 Freq: Status: Active Protocol: Document 07/05/23 14:34 NM (Rec: 07/05/23 14:40 NM [id number]) Knee Goniometric Range of Motion Knee Left Knee ROM WFL Yes Patient Position Supine Flexion Active (degrees) 130 Flexion Passive (degrees) 135 Extension Active (degrees) 5 Extension Passive (degrees) 0 Comments pain with flex and ext, anahi quad set. Pain with overpressure into flex and ext 07/05/23: 0 deg active knee ext; minimal anterior knee pain with quad set PT-OP-L Special Tests Start: 06/01/23 10:31 Freq: Status: Active Protocol: Document 06/01/23 10:31 NM (Rec: 06/01/23 11:18 NM [id number]) Special Tests Knee Special Tests Posterior Draw Test Results negative Comments no excessive tibial translation Varus- 25 Degrees Test Results positive Comments minimal translation compared to RLE, no pain reported Varus- 0 Degrees Test Results negative Comments no excessive translation Valgus- 25 Degrees Test Results negative Comments no excessive translation Valgus- 0 Degrees Test Results negative Comments no excessive translation Thessaly Test 20 Degrees Test Results positive (L) Comments reproduces pain and catching in L knee Thessaly Test 5 Degrees Test Results positive (L) Comments reproduces pain and catching in L knee Farshad Test Test Results positive (L) Comments palpable and audible clicking Javed's Test Results negative Comments no excessive tibial translation Anterior Draw Test Results negative Comments no excessive tibial motion PT-OP-M Strength Start: 06/01/23 10:31 Freq: Status: Active Protocol: Document 07/05/23 14:34 NM (Rec: 07/05/23 14:42 NM [id number]) Knee Strength Knee Manual Muscle Testing Left Flexion (S2) 4- Good- Extension (L3) 4- Good- Comments Extension reproduces pain in posterior knee 07/05/23: 4/5 MMT; no pain with resisted flexion or extension PT-OP-Q Treatments Start: 06/01/23 10:31 Freq: Status: Active Protocol: Document 07/12/23 12:14 SP (Rec: 07/12/23 13:06 SP [id number]) Cardio Equipment Elliptical Duration (Minutes) 4 Resistance 7 Other Trialed: warm up, no clicking in L knee. Gym Equipment Cable Column (Body Solid) HS curl Details individual Resistance 3 plates (add wt next tx) Reps/Time x12 reps- feels good effort, pain/crunch free LE Ext Resistance 2 plates Reps/Time 5 reps- stopped due to crunching post L knee Therapeutic Exercises Standing Exercises ankle/knee mob Standing Exercise Name trialed step Side left Reps/Minutes 3 reps Comments irritation L knee deeper due to lack flexibility and pain L knee- stopped SL calf raises Standing Exercise Name Trialed 1. floor 2. 4 step Equipment Used contact rail Reps/Minutes 1. x10 2. x8 reps before tires increase UE support dynamic drills Standing Exercise Name Trialed 1. side shufffle 2. diagonals 3. Equipment Used suggested add to HEP- no HO Reps/Minutes 20 ft x3 laps Comments cued hips squared dec Lat/post L knee tension irritation lateral sliders Standing Exercise Name REviewed HEP: 12, 3, 4, 6o' clock Side bilateral Resistance L>R Equipment Used AROM today (home AROM/TB #1 loop at ankles) Reps/Minutes 5 reps x3 sets Comments improved hip/quad tiring, less calf recruitment unilateral squat Standing Exercise Name twd chair Side left Resistance AROM Equipment Used 21 table Reps/Minutes 2x8L, x8 R Comments cued to prevent knee valgus, oppostie hip drop and rotation squat Side bilateral Resistance gray[place] green tb around thighs, + 10# DB Equipment Used use of mirror proprioception to determine location Reps/Minutes 2x10 (1x5 without compensation , equal/bilateral) Comments cued R pelvic depression leveled out squat eccentric step down fwd Standing Exercise Name fwd step down: 1. 6 2. 8 Side left Equipment Used prn hand rail use for balance; band around thighs to limit valgus Reps/Minutes 1. 2x10, 2. 1x8 Comments cued knee alignment over foot, no opp hip drop Manual Therapy Treatment Soft Tissue Mobilization L knee Body Location L lateral superior gastroc Mobilization Type Strumming,Sustained Pressure, Other Intensity/Depth Moderate Body Position Supine Comments manual STMs and MWM DF/PF range good pressure massage L distal lateral gastroc, self application instruction found MWW more effective releasing. Joint Mobilizations L knee Joint patellar, tibiofemoral, tibofibular (prox and distal) Direction Sup/inf, lat > med; post on femur, ant on tibial, post fib on tibia Grade II Body Position Hooklying Reps/Duration 4x30 Comments Mobilized throughout various ranges of knee flexion. Tibiofemoral and tibiofibular mobilization for pain reduction into terminal knee ext. PT-OP-T Assessment and Plan Start: 06/01/23 10:31 Freq: Status: Active Protocol: Document 07/12/23 12:14 SP (Rec: 07/12/23 13:06 SP [id number]) Physical Therapy Assessment Goals Six Impairment strength, function Short Term Goal (STG) Pt will demonstrate improved eccentric control with eccentric step downs for at least 5 reps with <2/10 pain in order to demonstrate improved quad control, hip strength, and activity tolerance. 07/05/23: No pain with eccentric step down x5 reps from 6 step; demos knee valgus (has anterior knee pain with 8 step down) 2/12/24: GOAL MET 10 reps 6 step, 8 reps 8 step STG Duration 4 weeks MET 07/12/23 [facility] Goal (LTG) Pt will demonstrate improved eccentric control with eccentric step downs for at least 10 reps with <2/10 pain in order to demonstrate improved quad control, hip strength, and activity tolerance. 07/12/23: GOAL MET 10 reps 6 step, 8 reps 8 step no pain. muscle tiring LTG Duration 8 weeks GOAL MET 07/12/23 Five Impairment strength Short Term Goal (STG) Pt will be able to perform at least 1 rep of single leg squats using good form and without knee valgus compensation in order to demonstrate improved quad control and hip strength for return to running. 07/05/23: 1 rep, demos knee valgus, ipsilateral hip drop STG Duration 4 weeks MET [employer] Goal (LTG) Pt will be able to perform at least 3 rep of single leg squats using good form and without knee valgus compensation in order to demonstrate improved quad control and hip strength for return to running. 07/12/23: progression cues hip hinge 21 height. LTG Duration 8 weeks Four Impairment strength, function Short Term Goal (STG) Pt will demonstrate equal bilateral squats x5 reps without compensation in order to show improved L knee ROM, strength, and tolerance for ADLs. 07/05/23: Demos equal bilateral squat x 5 reps without cueing to chair; no pain 06/28/23: Demos slight translation to R side, decreased with tactile cueing at hips and mirror for visual feedback STG Duration 4 weeks MET [employer] Goal (LTG) Pt will demonstrate equal bilateral squats x10 reps without compensation in order to show improved L knee ROM, strength, and tolerance for ADLs. LTG Duration 8 weeks Three Impairment strength Short Term Goal (STG) Pt will improve L knee flex and ext MMT score to at least 4/5 in order to demonstrate improved strength required for ambulation, running, and stairs. 07/05/23: 4/5, no pain with resisted contraction STG Duration 4 weeks MET [employer] Goal (LTG) Pt will improve L knee flex and ext MMT score to at least 4+/5 in order to demonstrate improved strength required for ambulation, running, and stairs. LTG Duration 8 weeks Two Impairment ROM [employer] Goal (LTG) Pt will increase L knee ext AROM to within 3 degrees of R knee extension for improved terminal knee extension during gait. 07/05/23: 0 deg ext, painful (2/ 10) LTG Duration 8 weeks MET One Impairment function Impairment LEFS: 68/80 [employer] Goal (LTG) Pt will increase LEFS score by at least 9 points (MCID) in order to demonstrate improved L knee function, ADL tolerance . 07/05/23: 63/80 (decrease since IE due to increased pain currently) LTG Duration 8 weeks Assessment Summary Assessment Pt improved L knee alignment with SL squats and fwd step down today with no pain reports. Trialed dynamic drills for L knee stabilization and truck body repairer corrections to support L knee with tibial rotation, improved reduction in L lateral knee pain post cue for keeping hips square forward while diagonal shuffles support knee corrections during riding horse. Physical Therapy Plan Frequency and Duration Frequency of Treatment 2x/Week Duration of treatment (weeks) 8 Plan of Care Start Date 06/01/23 Plan of Care End Date 07/27/23 Next Visit Focus/Plan Next Note Type Treatment Note Next Visit Plan POC by 07/27. Trial walking lunges and stationary uneven elevated front foot lunges. Manual: soft tissue of L knee/ quad/HS/post quad, patellar mobilizations POC: glute max/med strengthening, knee re- education. Next session: SL squat to chair, B squat retraining; step up/down; check single leg clock with slider with TB added to HEP; add SL bridge Trial: 4-6 step up, mini lunge, plank, single leg squat with UE support (if challenge needed).Limit knee flex (not below 90 deg). Continue hip strengthening. Add stretching for calf, hip flex/ext, possibly quad depending on tolerance
--- NOTE | 2023-07-15 09:17 | PT.OTN ---
Current Diagnoses Synovial cyst of popliteal space [Gauthier], unspecified knee (07/15/23) Strain of unspecified muscle(s) and tendon(s) at lower leg level, left leg, initial encounter (07/15/23) Physical Therapy Treatment Note PT-OP-A Visit Information Start: 06/01/23 10:31 Freq: Status: Active Protocol: Document 07/15/23 08:15 NM (Rec: 07/15/23 09:17 NM [id number]) Out-Patient Physical Therapy Visit Information Visit Information Visit Type Treatment Note Visit Note KX modifier after ST/PT visit 09/07 post PN Visit Start Time 08:16 Visit Stop Time 09:00 Visit Number 9 Evaluation Information Evaluation Date 06/01/23 PT-OP-B Current Condition Start: 06/01/23 10:31 Freq: Status: Active Protocol: Document 06/01/23 10:31 NM (Rec: 06/01/23 11:18 NM [id number]) Current Condition History of Current Condition Onset Date January 2023 Current Complaints L knee History of Current Condition Pt was working with her horse, when he got spooked. She jumped off the mounting block, landing on her L knee in standing. She felt off a pop on her L knee (landed on her feet) on the lateral side, with a varus force. It was swollen and she had limited weight bearing. Came to ED ( did x ray) in January, was given a knee ext brace to wear temporarily, which pt has not been wearing since January. She reports that her pain is intermittent but she still gets occasional pain laterally . She has worse pain walking down hill, unable to run (2 mi /day); she is able to run along side her horse but reports pain. Generally, she reports no pain overall, except in coming to stand is difficult from a squat. Reports popping with knee ext. She reports no instances of her knee buckling or giving out, but does report that sometimes her knee feels like it could. Prior Treatments and Tests L knee PMH: partial ACL tear ( still partial tear), meniscus bucket handle tear (repair), tibial plateau frx with screws ; gauthier's cyst (previous swollen) Radiographs 02/03/23: no acute fracture; no MRI performed Prior Functional Status Baseline Function- ADL's Independent Baseline Function- Mobility Independent Baseline Function- Gait run 2 mi/day (6-8 mi/wk) Baseline Function- Recreation/Hobbies Rides horses Current Functional Impairments (Reported) Functional Limitations- Mobility/Gait unable to run, walk down hills , landing on LLE Functional Limitations- Recreation/ Able to ride horses but must Hobbies dismount on R knee PT-OP-C Subjective Start: 06/01/23 10:31 Freq: Status: Active Protocol: Document 07/15/23 08:15 NM (Rec: 07/15/23 09:17 NM [id number]) OP-PT Subjective Patient Comments Patient Comments Pt reports that she has 0/10 L knee pain today. Has been doing HEP without any difficulty. She still has clicking but it is not painful . She reports that she has not noticed any knee pain when going down stairs recently. She states she was able to do a 2 pt canter on her horse without pain the other day. PT-OP-E Functional Tests Start: 06/01/23 10:31 Freq: Status: Active Protocol: Document 06/01/23 10:31 NM (Rec: 06/01/23 11:18 NM [id number]) Functional Tests Squat Test Score 10 B squats Comments able to perform deep squat but min pain, knee valgus, heels rise Single Leg Squat Test Score x1 LLE (RLE minimal valgus, better stability, no opposite hip drop) Comment no knee pain reported, demos knee valgus, foot pronation, R hip drop Other Single Leg Stance Score 25 sec LLE Comment demos valgus, mod instability at ankle (RLE 5 sec, more unstable) PT-OP-F Manual Assessment Start: 06/01/23 10:31 Freq: Status: Active Protocol: Document 06/01/23 10:31 NM (Rec: 06/01/23 11:18 NM [id number]) Manual Assessments Soft Tissue Assessment Soft Tissue Mobility Assessment Demos tenderness at posterior knee (hx of gauthier's cyst) with slight, palpable bulge. Joint Mobility Assessment Joint Mobility Assessment No valgus instability, minimal varus instability compared to R knee. Tenderness of L knee lateral joint line. Demos palpable/audible clicking with flexion/extension. No anterior or posterior instability of L knee, comparable to R knee. PT-OP-G Mobility & Gait Start: 06/01/23 10:31 Freq: Status: Active Protocol: Document 06/01/23 10:31 NM (Rec: 06/01/23 11:18 NM [id number]) OP Gait Assessment Comments Gait Comments antalgic Stair Climbing Evaluation Comments Stair Climbing Comments Eccentric control of LLE decreased compared to RLE. Demos mild knee valgus with foot pronation with descent and decreased quad control. PT-OP-H Neuro Start: 06/01/23 10:31 Freq: Status: Active Protocol: Document 06/01/23 10:31 NM (Rec: 06/01/23 11:18 NM [id number]) Sensation Evaluation Gross Sensation Gross Sensation Left LE Impaired Comments Summary Comments Pt demos slightly decreased sensation along L side in L3-4 dermatomes compared to RLE. Intact but decreased PT-OP-J Posture/Palpation/Skin Start: 06/01/23 10:31 Freq: Status: Active Protocol: Document 06/01/23 10:31 NM (Rec: 06/01/23 11:18 NM [id number]) Posture Evaluation Position Standing Evaluation View Anterior Pelvis Posture Neutral Weight Distribution Weight Shifted Right Knee Posture (L) Neutral,(R) Neutral Palpation Assessment Location L knee Palpation Location posterior knee, lateral knee, anterior knee Palpation Findings Soft Tissue Tightness,Muscle Guarding,Tenderness Palpation Details Tenderness along ant knee at patellar tendon, minimal tenderness along lateral joint line. No tenderness along medial joint line. Min tenderness and palpable bulge behind L knee PT-OP-K Range of Motion Start: 06/01/23 10:31 Freq: Status: Active Protocol: Document 07/05/23 14:34 NM (Rec: 07/05/23 14:40 NM [id number]) Knee Goniometric Range of Motion Knee Left Knee ROM WFL Yes Patient Position Supine Flexion Active (degrees) 130 Flexion Passive (degrees) 135 Extension Active (degrees) 5 Extension Passive (degrees) 0 Comments pain with flex and ext, anahi quad set. Pain with overpressure into flex and ext 07/05/23: 0 deg active knee ext; minimal anterior knee pain with quad set PT-OP-L Special Tests Start: 06/01/23 10:31 Freq: Status: Active Protocol: Document 06/01/23 10:31 NM (Rec: 06/01/23 11:18 NM [id number]) Special Tests Knee Special Tests Posterior Draw Test Results negative Comments no excessive tibial translation Varus- 25 Degrees Test Results positive Comments minimal translation compared to RLE, no pain reported Varus- 0 Degrees Test Results negative Comments no excessive translation Valgus- 25 Degrees Test Results negative Comments no excessive translation Valgus- 0 Degrees Test Results negative Comments no excessive translation Thessaly Test 20 Degrees Test Results positive (L) Comments reproduces pain and catching in L knee [place]ss[place] Test 5 Degrees Test Results positive (L) Comments reproduces pain and catching in L knee Farshad Test Test Results positive (L) Comments palpable and audible clicking Javed's Test Results negative Comments no excessive tibial translation Anterior Draw Test Results negative Comments no excessive tibial motion PT-OP-M Strength Start: 06/01/23 10:31 Freq: Status: Active Protocol: Document 07/05/23 14:34 NM (Rec: 07/05/23 14:42 NM [id number]) Knee Strength Knee Manual Muscle Testing Left Flexion (S2) 4- Good- Extension (L3) 4- Good- Comments Extension reproduces pain in posterior knee 07/05/23: 4/5 MMT; no pain with resisted flexion or extension PT-OP-Q Treatments Start: 06/01/23 10:31 Freq: Status: Active Protocol: Document 07/15/23 08:15 NM (Rec: 07/15/23 09:17 NM [id number]) Cardio Equipment Bicycle (Upright) Duration (Minutes) 5 Resistance 8 Seat Position 5 Other warm up due to stiffness Therapeutic Exercises Standing Exercises lunge Standing Exercise Name 1. fwd lunges, 2. walking lunges(to 90 deg if not painful),3.lateral lunges Side bilateral Resistance AROM > 10# db Reps/Minutes 1x10, 2x20 ft wtih dumbbell, 2x15 Comments cued for slower motion to decrease clicking; no pain reported dynamic drills Standing Exercise Name Trialed: side shuffle, square shuffle drill (fwd, side, bwd) Side bilateral Equipment Used cones Reps/Minutes 10 ft ea side, 2 lap CC and CCW Comments cued hips square, avoid twisting at knees, careful speed SL RDL Standing Exercise Name kickstand RDL> single leg RDL Side bilateral Resistance 10# db Equipment Used mirror for postural cues, prn hand support for balance Reps/Minutes 2x10 Comments cued for lateral sliders Standing Exercise Name 12, 3, 4, 6o'clock Side bilateral Resistance L>R Equipment Used AROM today (home AROM/TB #2 loop at ankles) Reps/Minutes 5 reps x3 sets Comments improved hip/quad tiring, less calf recruitment unilateral squat Standing Exercise Name twd chair Side left Resistance AROM Equipment Used 21 table for hand support (2 fingers) Reps/Minutes 2x8L Comments cued level pelvis, no L knee valgus squat Side bilateral Resistance 10# db (trialed w/o band for feedback to determine proprio) Equipment Used use of mirror proprioception to determine location Reps/Minutes 2x15 Comments improved equal WB Other Exercises stretching Other Exercise Name 1. Hamstring, 2. 1/2 kneel hip flexor stretch Side bilateral Equipment Used foot elevated on stairs for 1& 2 Reps/Minutes 1x60 ea Comments reports good feedback Self-Care/Home Management Treatment Education Patient Education Home Exercise Program Other Education 2 minutes-HEP: single leg RDL with prn hand support, fwd and lateral lunges. Instructed to add into HEP but can alternate which exercises she performs each day PT-OP-T Assessment and Plan Start: 06/01/23 10:31 Freq: Status: Active Protocol: Document 07/15/23 08:15 NM (Rec: 07/15/23 09:17 NM [id number]) Physical Therapy Assessment Goals Six Impairment strength, function Short Term Goal (STG) Pt will demonstrate improved eccentric control with eccentric step downs for at least 5 reps with <2/10 pain in order to demonstrate improved quad control, hip strength, and activity tolerance. 07/05/23: No pain with eccentric step down x5 reps from 6 step; demos knee valgus (has anterior knee pain with 8 step down) 07/12/23: GOAL MET 10 reps 6 step, 8 reps 8 step STG Duration 4 weeks MET 07/12/23 Alf Goal (LTG) Pt will demonstrate improved eccentric control with eccentric step downs for at least 10 reps with <2/10 pain in order to demonstrate improved quad control, hip strength, and activity tolerance. 07/12/23: GOAL MET 10 reps 6 step, 8 reps 8 step no pain. muscle tiring LTG Duration 8 weeks GOAL MET 07/12/23 Five Impairment strength Short Term Goal (STG) Pt will be able to perform at least 1 rep of single leg squats using good form and without knee valgus compensation in order to demonstrate improved quad control and hip strength for return to running. 07/05/23: 1 rep, demos knee valgus, ipsilateral hip drop STG Duration 4 weeks MET Alf Goal (LTG) Pt will be able to perform at least 3 rep of single leg squats using good form and without knee valgus compensation in order to demonstrate improved quad control and hip strength for return to running. 07/12/23: progression cues hip hinge 21 height. LTG Duration 8 weeks Four Impairment strength, function Short Term Goal (STG) Pt will demonstrate equal bilateral squats x5 reps without compensation in order to show improved L knee ROM, strength, and tolerance for ADLs. 07/05/23: Demos equal bilateral squat x 5 reps without cueing to chair; no pain 06/28/23: Demos slight translation to R side, decreased with tactile cueing at hips and mirror for visual feedback STG Duration 4 weeks MET Bus Washer Goal (LTG) Pt will demonstrate equal bilateral squats x10 reps without compensation in order to show improved L knee ROM, strength, and tolerance for ADLs. 07/15/23: 2x10 equal, bilateral squats without hip or knee compensation to 90 80 deg knee flex LTG Duration 8 weeks MET Three Impairment strength Short Term Goal (STG) Pt will improve L knee flex and ext MMT score to at least 4/5 in order to demonstrate improved strength required for ambulation, running, and stairs. 07/05/23: 4/5, no pain with resisted contraction STG Duration 4 weeks MET Bus Washer Goal (LTG) Pt will improve L knee flex and ext MMT score to at least 4+/5 in order to demonstrate improved strength required for ambulation, running, and stairs. LTG Duration 8 weeks Two Impairment ROM Alf Goal (LTG) Pt will increase L knee ext AROM to within 3 degrees of R knee extension for improved terminal knee extension during gait. 07/05/23: 0 deg ext, painful () LTG Duration 8 weeks MET One Impairment function Impairment LEFS: 68/80 Bus Washer Goal (LTG) Pt will increase LEFS score by at least 9 points (MCID) in order to demonstrate improved L knee function, ADL tolerance . 07/05/23: 63/80 (decrease since IE due to increased pain currently) LTG Duration 8 weeks Assessment Summary Assessment Pt demos improved B squat form , no compensations without band but continued mirror for visual feedback. Initiated walking lunges, lateral lunges , square dynamic shuffling drill. Pt able to perform all new exercises without L knee pain. Cued for correct execution and control with knee flexion exercises to minimize clicking at knee. During single leg RDL and lunges, pt required intermittent cues for hip hinge with PT initially facilitating at hips for form. Changed pt's single squat to standing from chair to standing while hip hinging toward chair. Pt's POC will be ending at end of July; PT and pt began discussion about continuing PT vs discharging as pt is progressing well toward goals and with improved symptom management. Pt would benefit from skilled PT for progressive LLE strengthening, mobiity, and impact training in order to return to PLOF and improve activity tolerance. Physical Therapy Plan Frequency and Duration Frequency of Treatment 2x/Week Duration of treatment (weeks) 8 Plan of Care Start Date 06/01/23 Plan of Care End Date 07/27/23 Therapeutic Interventions Therapeutic Interventions Balance Training,Coordination Training,Gait Training,Home Exercise Program,Joint Mobilizations,Manual Therapy, Neuromuscular Re-education, Orthotic/Prosthetic Management ,Patient/Caregiver Education, Self-Care/Home Management, Sensory Integration,Soft Tissue Mobilization,Taping, Therapeutic Activities, Therapeutic Exercises Modalities Biofeedback,Cold Pack/Ice Massage,Electric Stimulation, Hot Packs,Infrared Therapy, Iontophoresis,Paraffin Bath, Ultrasound,Vasopneumatic Devices Other Referrals/Consults Referrals/Consults Recommended Referral to ortho depending on pt tolerance to exercise or increased reports of instability Next Visit Focus/Plan Next Note Type Treatment Note Next Visit Plan POC by 07/27. Trial stationary uneven elevated front foot lunges, ladders/dynamic activity as tolerated. Manual: soft tissue of L knee/ quad/HS/post quad, patellar mobilizations POC: glute max/med strengthening, knee re- education. Next session: SL squat to chair, B squat retraining; step up/down; check single leg clock with slider with TB added to HEP; add SL bridge Trial: 4-6 step up, mini lunge, plank, single leg squat with UE support (if challenge needed).Limit knee flex (not below 90 deg). Continue hip strengthening. Add stretching for calf, hip flex/ext, possibly quad depending on tolerance
--- NOTE | 2023-07-21 09:00 | PT.OTN ---
Current Diagnoses Synovial cyst of popliteal space [Gauthier], unspecified knee (07/21/23) Strain of unspecified muscle(s) and tendon(s) at lower leg level, left leg, initial encounter (07/21/23) Physical Therapy Treatment Note PT-OP-A Visit Information Start: 06/01/23 10:31 Freq: Status: Active Protocol: Document 07/21/23 08:17 SP (Rec: 07/21/23 16:27 SP [id number]) Out-Patient Physical Therapy Visit Information Visit Information Visit Type Treatment Note Visit Note KX modifier after ST/PT visit 10/07 post PN Visit Start Time 08:17 Visit Stop Time 09:00 Visit Number 10 Number of BALANCE TRUING INSPECTOR Visits 1 Evaluation Information Evaluation Date 06/01/23 PT-OP-B Current Condition Start: 06/01/23 10:31 Freq: Status: Active Protocol: Document 06/01/23 10:31 NM (Rec: 06/01/23 11:18 NM [id number]) Current Condition History of Current Condition Onset Date January 2023 Current Complaints L knee History of Current Condition Pt was working with her horse, when he got spooked. She jumped off the mounting block, landing on her L knee in standing. She felt off a pop on her L knee (landed on her feet) on the lateral side, with a varus force. It was swollen and she had limited weight bearing. Came to ED ( did x ray) in January, was given a knee ext brace to wear temporarily, which pt has not been wearing since January. She reports that her pain is intermittent but she still gets occasional pain laterally . She has worse pain walking down hill, unable to run (2 mi /day); she is able to run along side her horse but reports pain. Generally, she reports no pain overall, except in coming to stand is difficult from a squat. Reports popping with knee ext. She reports no instances of her knee buckling or giving out, but does report that sometimes her knee feels like it could. Prior Treatments and Tests L knee PMH: partial ACL tear ( still partial tear), meniscus bucket handle tear (repair), tibial plateau frx with screws ; gauthier's cyst (previous swollen) Radiographs 02/03/23: no acute fracture; no MRI performed Prior Functional Status Baseline Function- ADL's Independent Baseline Function- Mobility Independent Baseline Function- Gait run 2 mi/day (6-8 mi/wk) Baseline Function- Recreation/Hobbies Rides horses Current Functional Impairments (Reported) Functional Limitations- Mobility/Gait unable to run, walk down hills , landing on LLE Functional Limitations- Recreation/ Able to ride horses but must Hobbies dismount on R knee PT-OP-C Subjective Start: 06/01/23 10:31 Freq: Status: Active Protocol: Document 07/21/23 08:17 SP (Rec: 07/21/23 16:27 SP [id number]) OP-PT Subjective Patient Comments Patient Comments Pt reports L knee feeling better, did trial light jog on TM and had pain post L knee but otherswise able to perform more normal and return to gym ex/activities. PT-OP-E Functional Tests Start: 06/01/23 10:31 Freq: Status: Active Protocol: Document 06/01/23 10:31 NM (Rec: 06/01/23 11:18 NM [id number]) Functional Tests Squat Test Score 10 B squats Comments able to perform deep squat but min pain, knee valgus, heels rise Single Leg Squat Test Score x1 LLE (RLE minimal valgus, better stability, no opposite hip drop) Comment no knee pain reported, demos knee valgus, foot pronation, R hip drop Other Single Leg Stance Score 25 sec LLE Comment demos valgus, mod instability at ankle (RLE 5 sec, more unstable) PT-OP-F Manual Assessment Start: 06/01/23 10:31 Freq: Status: Active Protocol: Document 06/01/23 10:31 NM (Rec: 06/01/23 11:18 NM [id number]) Manual Assessments Soft Tissue Assessment Soft Tissue Mobility Assessment Demos tenderness at posterior knee (hx of gauthier's cyst) with slight, palpable bulge. Joint Mobility Assessment Joint Mobility Assessment No valgus instability, minimal varus instability compared to R knee. Tenderness of L knee lateral joint line. Demos palpable/audible clicking with flexion/extension. No anterior or posterior instability of L knee, comparable to R knee. PT-OP-G Mobility & Gait Start: 06/01/23 10:31 Freq: Status: Active Protocol: Document 06/01/23 10:31 NM (Rec: 06/01/23 11:18 NM [id number]) OP Gait Assessment Comments Gait Comments antalgic Stair Climbing Evaluation Comments Stair Climbing Comments Eccentric control of LLE decreased compared to RLE. Demos mild knee valgus with foot pronation with descent and decreased quad control. PT-OP-H Neuro Start: 06/01/23 10:31 Freq: Status: Active Protocol: Document 06/01/23 10:31 NM (Rec: 06/01/23 11:18 NM [id number]) Sensation Evaluation Gross Sensation Gross Sensation Left LE Impaired Comments Summary Comments Pt demos slightly decreased sensation along L side in L3-4 dermatomes compared to RLE. Intact but decreased PT-OP-J Posture/Palpation/Skin Start: 06/01/23 10:31 Freq: Status: Active Protocol: Document 06/01/23 10:31 NM (Rec: 06/01/23 11:18 NM [id number]) Posture Evaluation Position Standing Evaluation View Anterior Pelvis Posture Neutral Weight Distribution Weight Shifted Right Knee Posture (L) Neutral,(R) Neutral Palpation Assessment Location L knee Palpation Location posterior knee, lateral knee, anterior knee Palpation Findings Soft Tissue Tightness,Muscle Guarding,Tenderness Palpation Details Tenderness along ant knee at patellar tendon, minimal tenderness along lateral joint line. No tenderness along medial joint line. Min tenderness and palpable bulge behind L knee PT-OP-K Range of Motion Start: 06/01/23 10:31 Freq: Status: Active Protocol: Document 07/05/23 14:34 NM (Rec: 07/05/23 14:40 NM [id number]) Knee Goniometric Range of Motion Knee Left Knee ROM WFL Yes Patient Position Supine Flexion Active (degrees) 130 Flexion Passive (degrees) 135 Extension Active (degrees) 5 Extension Passive (degrees) 0 Comments pain with flex and ext, anahi quad set. Pain with overpressure into flex and ext 07/05/23: 0 deg active knee ext; minimal anterior knee pain with quad set PT-OP-L Special Tests Start: 06/01/23 10:31 Freq: Status: Active Protocol: Document 06/01/23 10:31 NM (Rec: 06/01/23 11:18 NM [id number]) Special Tests Knee Special Tests Posterior Draw Test Results negative Comments no excessive tibial translation Varus- 25 Degrees Test Results positive Comments minimal translation compared to RLE, no pain reported Varus- 0 Degrees Test Results negative Comments no excessive translation Valgus- 25 Degrees Test Results negative Comments no excessive translation Valgus- 0 Degrees Test Results negative Comments no excessive translation [place]ss[place] Test 20 Degrees Test Results positive (L) Comments reproduces pain and catching in L knee [place]ss[place] Test 5 Degrees Test Results positive (L) Comments reproduces pain and catching in L knee Farshad Test Test Results positive (L) Comments palpable and audible clicking Javed's Test Results negative Comments no excessive tibial translation Anterior Draw Test Results negative Comments no excessive tibial motion PT-OP-M Strength Start: 06/01/23 10:31 Freq: Status: Active Protocol: Document 07/05/23 14:34 NM (Rec: 07/05/23 14:42 NM [id number]) Knee Strength Knee Manual Muscle Testing Left Flexion (S2) 4- Good- Extension (L3) 4- Good- Comments Extension reproduces pain in posterior knee 07/05/23: 4/5 MMT; no pain with resisted flexion or extension PT-OP-Q Treatments Start: 06/01/23 10:31 Freq: Status: Active Protocol: Document 07/21/23 08:17 SP (Rec: 07/21/23 09:04 SP [id number]) Gym Equipment Shuttle Recovery bilateral squat Details occ cue knee more lateral with feet Resistance 75# ([employer]) -(87# next tx) Shuttle Recovery Platform Stable Reps/Time x20 feels fine unilateral squat Details reports little crepitus felt but painfree Resistance 50# dark navy Shuttle Recovery Platform Stable Reps/Time x20 Therapeutic Exercises Standing Exercises lunge Standing Exercise Name 1. walking lunges with knee twist into stand 2.lateral lunges uneven 3. sta Side bilateral Resistance AROM Reps/Minutes 1. 20 ft x 1 lap 2. lateral ft on BOSU> blue disc x15 reps 3 . fwd disc Comments cued for slower motion to decrease clicking; no pain reported dynamic drills Standing Exercise Name 1. side shuffle 2.square shuffle drill (fwd, side, bwd) 3. hops fwd/bwd/balta Side bilateral Resistance 4. high skipping Equipment Used items/chairs Reps/Minutes 15 ft ea side x2 laps, ladder fwd/bwd/lateral- pn free Comments cued hips square, avoid twisting at knees, careful speed SL RDL Standing Exercise Name RDL> single leg RDL (kickstand contact ft floor PRN) Side bilateral Resistance 10# db Equipment Used mirror for postural cues, opp LE light touch cabinet for stab Reps/Minutes 2x10 Comments Challenged with not curling toes for bal., lateral sliders Standing Exercise Name 12, 3, 4, 6o'clock Side left Resistance RLE stance LE Equipment Used TB #2 loop at ankles Reps/Minutes 5 reps of 4 position angles x3 sets Comments good form, painfree eccentric step down fwd Standing Exercise Name fwd step down: 1. 6 2. 8 Side left Equipment Used prn hand rail use for balance Reps/Minutes 1. x15, 2. 1x8 Comments improved self knee alignment, painfree Other Exercises stretching Other Exercise Name calf Side bilateral Equipment Used bottom step angled as though a wall Reps/Minutes 1x60 ea Comments reports good feedback PT-OP-T Assessment and Plan Start: 06/01/23 10:31 Freq: Status: Active Protocol: Document 07/21/23 08:17 SP (Rec: 07/21/23 09:04 SP [id number]) Physical Therapy Assessment Goals Six Impairment strength, function Short Term Goal (STG) Pt will demonstrate improved eccentric control with eccentric step downs for at least 5 reps with <2/10 pain in order to demonstrate improved quad control, hip strength, and activity tolerance. 07/05/23: No pain with eccentric step down x5 reps from 6 step; demos knee valgus (has anterior knee pain with 8 step down) 07/12/23: GOAL MET 10 reps 6 step, 8 reps 8 step STG Duration 4 weeks MET 07/12/23 Double End Tenoner Setter Goal (LTG) Pt will demonstrate improved eccentric control with eccentric step downs for at least 10 reps with <2/10 pain in order to demonstrate improved quad control, hip strength, and activity tolerance. 07/12/23: GOAL MET 10 reps 6 step, 8 reps 8 step no pain. muscle tiring LTG Duration 8 weeks GOAL MET 07/12/23 Five Impairment strength Short Term Goal (STG) Pt will be able to perform at least 1 rep of single leg squats using good form and without knee valgus compensation in order to demonstrate improved quad control and hip strength for return to running. 07/05/23: 1 rep, demos knee valgus, ipsilateral hip drop STG Duration 4 weeks MET Half-Way Goal (LTG) Pt will be able to perform at least 3 rep of single leg squats using good form and without knee valgus compensation in order to demonstrate improved quad control and hip strength for return to running. 07/12/23: progression cues hip hinge 21 height. LTG Duration 8 weeks Four Impairment strength, function Short Term Goal (STG) Pt will demonstrate equal bilateral squats x5 reps without compensation in order to show improved L knee ROM, strength, and tolerance for ADLs. 07/05/23: Demos equal bilateral squat x 5 reps without cueing to chair; no pain 06/28/23: Demos slight translation to R side, decreased with tactile cueing at hips and mirror for visual feedback STG Duration 4 weeks MET Half-Way Goal (LTG) Pt will demonstrate equal bilateral squats x10 reps without compensation in order to show improved L knee ROM, strength, and tolerance for ADLs. 07/15/23: 2x10 equal, bilateral squats without hip or knee compensation to 90 80 deg knee flex LTG Duration 8 weeks MET Three Impairment strength Short Term Goal (STG) Pt will improve L knee flex and ext MMT score to at least 4/5 in order to demonstrate improved strength required for ambulation, running, and stairs. 07/05/23: 4/5, no pain with resisted contraction STG Duration 4 weeks MET Half-Way Goal (LTG) Pt will improve L knee flex and ext MMT score to at least 4+/5 in order to demonstrate improved strength required for ambulation, running, and stairs. LTG Duration 8 weeks Two Impairment ROM Double End Tenoner Setter Goal (LTG) Pt will increase L knee ext AROM to within 3 degrees of R knee extension for improved terminal knee extension during gait. 07/05/23: 0 deg ext, painful (2/ 10) LTG Duration 8 weeks MET One Impairment function Impairment LEFS: 68/80 Double End Tenoner Setter Goal (LTG) Pt will increase LEFS score by at least 9 points (MCID) in order to demonstrate improved L knee function, ADL tolerance . 07/05/23: 63/80 (decrease since IE due to increased pain currently) LTG Duration 8 weeks Assessment Summary Assessment Pt good feedback response to uneven lunges, dynamic drills. Only 1 twinge posterolateral L knee during skipping 2 steps then fine. Cued knee alignment as needed. Will incorporate more dynamic uneven ex as did in PT today. She will try to do small range jogging before next tx. She feels almost ready for continue on own. Physical Therapy Plan Frequency and Duration Frequency of Treatment 2x/Week Duration of treatment (weeks) 8 Plan of Care Start Date 06/01/23 Plan of Care End Date 07/27/23 Therapeutic Interventions Therapeutic Interventions Balance Training,Coordination Training,Gait Training,Home Exercise Program,Joint Mobilizations,Manual Therapy, Neuromuscular Re-education, Orthotic/Prosthetic Management ,Patient/Caregiver Education, Self-Care/Home Management, Sensory Integration,Soft Tissue Mobilization,Taping, Therapeutic Activities, Therapeutic Exercises Modalities Biofeedback,Cold Pack/Ice Massage,Electric Stimulation, Hot Packs,Infrared Therapy, Iontophoresis,Paraffin Bath, Ultrasound,Vasopneumatic Devices Other Referrals/Consults Referrals/Consults Recommended Referral to ortho depending on pt tolerance to exercise or increased reports of instability Next Visit Focus/Plan Next Note Type Treatment Note Next Visit Plan DC 07/26 appt. Ask response to Dynamic activities 07/21. Next Trial stationary uneven elevated front foot lunges, ladders/dynamic activity as tolerated. Manual: soft tissue of L knee/ quad/HS/post quad, patellar mobilizations POC: glute max/med strengthening, knee re- education. Next session: SL squat to chair, B squat retraining; step up/down; check single leg clock with slider with TB added to HEP; add SL bridge Trial: 4-6 step up, mini lunge, plank, single leg squat with UE support (if challenge needed).Limit knee flex (not below 90 deg). Continue hip strengthening. Add stretching for calf, hip flex/ext, possibly quad depending on tolerance
--- NOTE | 2023-07-23 09:00 | PT.OTN ---
Current Diagnoses Synovial cyst of popliteal space [Gauthier], unspecified knee (07/23/23) Strain of unspecified muscle(s) and tendon(s) at lower leg level, left leg, initial encounter (07/23/23) Physical Therapy Treatment Note PT-OP-A Visit Information Start: 06/01/23 10:31 Freq: Status: Active Protocol: Document 07/23/23 08:18 NM (Rec: 07/23/23 09:00 NM [id number]) Out-Patient Physical Therapy Visit Information Visit Information Visit Type Treatment Note Visit Note KX modifier after ST/PT visit 11/07 post PN Visit Start Time 08:18 Visit Stop Time 09:00 Visit Number 11 Evaluation Information Evaluation Date 06/01/23 PT-OP-B Current Condition Start: 06/01/23 10:31 Freq: Status: Active Protocol: Document 06/01/23 10:31 NM (Rec: 06/01/23 11:18 NM [id number]) Current Condition History of Current Condition Onset Date January 2023 Current Complaints L knee History of Current Condition Pt was working with her horse, when he got spooked. She jumped off the mounting block, landing on her L knee in standing. She felt off a pop on her L knee (landed on her feet) on the lateral side, with a varus force. It was swollen and she had limited weight bearing. Came to ED ( did x ray) in January, was given a knee ext brace to wear temporarily, which pt has not been wearing since January. She reports that her pain is intermittent but she still gets occasional pain laterally . She has worse pain walking down hill, unable to run (2 mi /day); she is able to run along side her horse but reports pain. Generally, she reports no pain overall, except in coming to stand is difficult from a squat. Reports popping with knee ext. She reports no instances of her knee buckling or giving out, but does report that sometimes her knee feels like it could. Prior Treatments and Tests L knee PMH: partial ACL tear ( still partial tear), meniscus bucket handle tear (repair), tibial plateau frx with screws ; gauthier's cyst (previous swollen) Radiographs 02/03/23: no acute fracture; no MRI performed Prior Functional Status Baseline Function- ADL's Independent Baseline Function- Mobility Independent Baseline Function- Gait run 2 mi/day (6-8 mi/wk) Baseline Function- Recreation/Hobbies Rides horses Current Functional Impairments (Reported) Functional Limitations- Mobility/Gait unable to run, walk down hills , landing on LLE Functional Limitations- Recreation/ Able to ride horses but must Hobbies dismount on R knee PT-OP-C Subjective Start: 06/01/23 10:31 Freq: Status: Active Protocol: Document 07/23/23 08:18 NM (Rec: 07/23/23 09:00 NM [id number]) OP-PT Subjective Patient Comments Patient Comments Pt reports L knee is not painful. She did a hard trail ride on Wednesday without difficulty. Reports things seem to be going better with her leg and she is having less pain. She is wanting to discharge at next session vs continue with POC PT-OP-E Functional Tests Start: 06/01/23 10:31 Freq: Status: Active Protocol: Document 06/01/23 10:31 NM (Rec: 06/01/23 11:18 NM [id number]) Functional Tests Squat Test Score 10 B squats Comments able to perform deep squat but min pain, knee valgus, heels rise Single Leg Squat Test Score x1 LLE (RLE minimal valgus, better stability, no opposite hip drop) Comment no knee pain reported, demos knee valgus, foot pronation, R hip drop Other Single Leg Stance Score 25 sec LLE Comment demos valgus, mod instability at ankle (RLE 5 sec, more unstable) PT-OP-F Manual Assessment Start: 06/01/23 10:31 Freq: Status: Active Protocol: Document 06/01/23 10:31 NM (Rec: 06/01/23 11:18 NM [id number]) Manual Assessments Soft Tissue Assessment Soft Tissue Mobility Assessment Demos tenderness at posterior knee (hx of gauthier's cyst) with slight, palpable bulge. Joint Mobility Assessment Joint Mobility Assessment No valgus instability, minimal varus instability compared to R knee. Tenderness of L knee lateral joint line. Demos palpable/audible clicking with flexion/extension. No anterior or posterior instability of L knee, comparable to R knee. PT-OP-G Mobility & Gait Start: 06/01/23 10:31 Freq: Status: Active Protocol: Document 06/01/23 10:31 NM (Rec: 06/01/23 11:18 NM [id number]) OP Gait Assessment Comments Gait Comments antalgic Stair Climbing Evaluation Comments Stair Climbing Comments Eccentric control of LLE decreased compared to RLE. Demos mild knee valgus with foot pronation with descent and decreased quad control. PT-OP-H Neuro Start: 06/01/23 10:31 Freq: Status: Active Protocol: Document 06/01/23 10:31 NM (Rec: 06/01/23 11:18 NM [id number]) Sensation Evaluation Gross Sensation Gross Sensation Left LE Impaired Comments Summary Comments Pt demos slightly decreased sensation along L side in L3-4 dermatomes compared to RLE. Intact but decreased PT-OP-J Posture/Palpation/Skin Start: 06/01/23 10:31 Freq: Status: Active Protocol: Document 06/01/23 10:31 NM (Rec: 06/01/23 11:18 NM [id number]) Posture Evaluation Position Standing Evaluation View Anterior Pelvis Posture Neutral Weight Distribution Weight Shifted Right Knee Posture (L) Neutral,(R) Neutral Palpation Assessment Location L knee Palpation Location posterior knee, lateral knee, anterior knee Palpation Findings Soft Tissue Tightness,Muscle Guarding,Tenderness Palpation Details Tenderness along ant knee at patellar tendon, minimal tenderness along lateral joint line. No tenderness along medial joint line. Min tenderness and palpable bulge behind L knee PT-OP-K Range of Motion Start: 06/01/23 10:31 Freq: Status: Active Protocol: Document 07/05/23 14:34 NM (Rec: 07/05/23 14:40 NM [id number]) Knee Goniometric Range of Motion Knee Left Knee ROM WFL Yes Patient Position Supine Flexion Active (degrees) 130 Flexion Passive (degrees) 135 Extension Active (degrees) 5 Extension Passive (degrees) 0 Comments pain with flex and ext, anahi quad set. Pain with overpressure into flex and ext 07/05/23: 0 deg active knee ext; minimal anterior knee pain with quad set PT-OP-L Special Tests Start: 06/01/23 10:31 Freq: Status: Active Protocol: Document 06/01/23 10:31 NM (Rec: 06/01/23 11:18 NM [id number]) Special Tests Knee Special Tests Posterior Draw Test Results negative Comments no excessive tibial translation Varus- 25 Degrees Test Results positive Comments minimal translation compared to RLE, no pain reported Varus- 0 Degrees Test Results negative Comments no excessive translation Valgus- 25 Degrees Test Results negative Comments no excessive translation Valgus- 0 Degrees Test Results negative Comments no excessive translation [place]ss[place] Test 20 Degrees Test Results positive (L) Comments reproduces pain and catching in L knee [place]ss[place] Test 5 Degrees Test Results positive (L) Comments reproduces pain and catching in L knee Farshad Test Test Results positive (L) Comments palpable and audible clicking Javed's Test Results negative Comments no excessive tibial translation Anterior Draw Test Results negative Comments no excessive tibial motion PT-OP-M Strength Start: 06/01/23 10:31 Freq: Status: Active Protocol: Document 07/05/23 14:34 NM (Rec: 07/05/23 14:42 NM [id number]) Knee Strength Knee Manual Muscle Testing Left Flexion (S2) 4- Good- Extension (L3) 4- Good- Comments Extension reproduces pain in posterior knee 07/05/23: 4/5 MMT; no pain with resisted flexion or extension PT-OP-Q Treatments Start: 06/01/23 10:31 Freq: Status: Active Protocol: Document 07/23/23 08:18 NM (Rec: 07/23/23 09:00 NM [id number]) Cardio Equipment Elliptical Duration (Minutes) 5 Resistance 4 Other warm up; no clicking or pain reported in knee; good tempo Therapeutic Exercises Standing Exercises split squat Side bilateral Equipment Used front leg elevated on bosu; mirror for visual cues Reps/Minutes 1x10 ea Comments inc ankle sway, cued level pelvis lunge Standing Exercise Name lateral lunge Side bilateral Resistance AROM Reps/Minutes 1x10 ea leg Comments cued slower motion, improved control with reps; no pain reported dynamic drills Standing Exercise Name Ladder drills: 1 ft ea, 2ft fwd,2ft lat, in/out, diagonal Side bilateral Reps/Minutes 2 reps ea Comments cued squared hips, improved with reps, no pain or instability SL RDL Standing Exercise Name kickstand RDL with ball pass Side bilateral Resistance 5# ball Equipment Used mirror for visual cues Reps/Minutes 5 sets ea x 5 ball passes per rep Comments challenging, but improved stability with kickstand lateral sliders Standing Exercise Name Y drill with slider Side left Resistance single leg squat on stance Equipment Used tb lvl 3 around thighs Reps/Minutes 2x10, RLE 1x10 Comments L better form than R unilateral squat Standing Exercise Name twd chair Side left Resistance AROM Equipment Used hand support on chair Reps/Minutes 2x10 Comments improved level pelvis, no L valgus; cued more glute to chair squat Standing Exercise Name BOSU squat Side bilateral Equipment Used use of mirror proprioception to determine location Reps/Minutes 2x8 Comments cued equal WB Other Exercises dorsiflexion mobilization Side left Equipment Used foot elevated on 16 step Reps/Minutes 5x5 Comments reports good feedback PT-OP-T Assessment and Plan Start: 06/01/23 10:31 Freq: Status: Active Protocol: Document 07/23/23 08:18 NM (Rec: 07/23/23 09:00 NM [id number]) Physical Therapy Assessment Goals Six Impairment strength, function Short Term Goal (STG) Pt will demonstrate improved eccentric control with eccentric step downs for at least 5 reps with <2/10 pain in order to demonstrate improved quad control, hip strength, and activity tolerance. 07/05/23: No pain with eccentric step down x5 reps from 6 step; demos knee valgus (has anterior knee pain with 8 step down) 07/12/23: GOAL MET 10 reps 6 step, 8 reps 8 step STG Duration 4 weeks MET 07/12/23 Residential Goal (LTG) Pt will demonstrate improved eccentric control with eccentric step downs for at least 10 reps with <2/10 pain in order to demonstrate improved quad control, hip strength, and activity tolerance. 07/12/23: GOAL MET 10 reps 6 step, 8 reps 8 step no pain. muscle tiring LTG Duration 8 weeks GOAL MET 07/12/23 Five Impairment strength Short Term Goal (STG) Pt will be able to perform at least 1 rep of single leg squats using good form and without knee valgus compensation in order to demonstrate improved quad control and hip strength for return to running. 07/05/23: 1 rep, demos knee valgus, ipsilateral hip drop STG Duration 4 weeks MET Residential Goal (LTG) Pt will be able to perform at least 3 rep of single leg squats using good form and without knee valgus compensation in order to demonstrate improved quad control and hip strength for return to running. 07/23/23: to chair, no knee valgus, 2x10 w/o cueing or pain, minimal clicking but decreased with increased hip hinge 07/12/23: progression cues hip hinge 21 height. LTG Duration 8 weeks MET Four Impairment strength, function Short Term Goal (STG) Pt will demonstrate equal bilateral squats x5 reps without compensation in order to show improved L knee ROM, strength, and tolerance for ADLs. 07/05/23: Demos equal bilateral squat x 5 reps without cueing to chair; no pain 06/28/23: Demos slight translation to R side, decreased with tactile cueing at hips and mirror for visual feedback STG Duration 4 weeks MET Residential Goal (LTG) Pt will demonstrate equal bilateral squats x10 reps without compensation in order to show improved L knee ROM, strength, and tolerance for ADLs. 07/15/23: 2x10 equal, bilateral squats without hip or knee compensation to 90 80 deg knee flex LTG Duration 8 weeks MET Three Impairment strength Short Term Goal (STG) Pt will improve L knee flex and ext MMT score to at least 4/5 in order to demonstrate improved strength required for ambulation, running, and stairs. 07/05/23: 4/5, no pain with resisted contraction STG Duration 4 weeks MET Residential Goal (LTG) Pt will improve L knee flex and ext MMT score to at least 4+/5 in order to demonstrate improved strength required for ambulation, running, and stairs. 07/23/23: 4+/5 LTG Duration 8 weeks MET Two Impairment ROM Residential Goal (LTG) Pt will increase L knee ext AROM to within 3 degrees of R knee extension for improved terminal knee extension during gait. 07/05/23: 0 deg ext, painful (2/ 10) LTG Duration 8 weeks MET One Impairment function Impairment LEFS: 68/80 Residential Goal (LTG) Pt will increase LEFS score by at least 9 points (MCID) in order to demonstrate improved L knee function, ADL tolerance . 07/23/23: 75/80 07/05/23: 63/80 (decrease since IE due to increased pain currently) LTG Duration 8 weeks PARTIALLY MET Progress Towards Goals Progress Towards Goals Progressing Toward Goals,Goals Met Progress Comments Partially met LEFS, all other goals met Assessment Summary Assessment Pt with good tolerance for elliptical, no reports of L knee clicking or pain, demos good lateral translation. Pt reports no difficulty with stairs anymore. Retested goals to determine pt progress. Pt with improved form with single leg squat, level pelvis without L knee valgus. Initiated front elevated split squat for increased quad and glute activation, stabilization. Progressed to lateral lunges with leg elevated on bosu, kickstand RDL with ball pass. PT cued pt for slower motions to improve control and limit extraneous movement patterns. Pt continues to have good tolerance to dynamic activities without increased L knee clicking pain. Minimal cues for safety, joint position and LLE control. PT and pt discussed pt's POC ending next session, plan to discharge to independent exercise. Will finalize pt HEP next session for discharge. Physical Therapy Plan Frequency and Duration Frequency of Treatment 2x/Week Duration of treatment (weeks) 8 Plan of Care Start Date 06/01/23 Plan of Care End Date 07/27/23 Therapeutic Interventions Therapeutic Interventions Balance Training,Coordination Training,Gait Training,Home Exercise Program,Joint Mobilizations,Manual Therapy, Neuromuscular Re-education, Orthotic/Prosthetic Management ,Patient/Caregiver Education, Self-Care/Home Management, Sensory Integration,Soft Tissue Mobilization,Taping, Therapeutic Activities, Therapeutic Exercises Modalities Biofeedback,Cold Pack/Ice Massage,Electric Stimulation, Hot Packs,Infrared Therapy, Iontophoresis,Paraffin Bath, Ultrasound,Vasopneumatic Devices Other Referrals/Consults Referrals/Consults Recommended Referral to ortho depending on pt tolerance to exercise or increased reports of instability Next Visit Focus/Plan Next Note Type Discharge Summary Next Visit Plan DC 07/26 appt. Ask response to Dynamic activities 07/21. Next Trial stationary uneven elevated front foot lunges, ladders/dynamic activity as tolerated. Manual: soft tissue of L knee/ quad/HS/post quad, patellar mobilizations POC: glute max/med strengthening, knee re- education. Next session: SL squat to chair, B squat retraining; step up/down; check single leg clock with slider with TB added to HEP; add SL bridge Trial: 4-6 step up, mini lunge, plank, single leg squat with UE support (if challenge needed).Limit knee flex (not below 90 deg). Continue hip strengthening. Add stretching for calf, hip flex/ext, possibly quad depending on tolerance
--- NOTE | 2023-07-26 16:39 | PT.OTN ---
Current Diagnoses Synovial cyst of popliteal space [Gauthier], unspecified knee (07/26/23) Strain of unspecified muscle(s) and tendon(s) at lower leg level, left leg, initial encounter (07/26/23) Physical Therapy Treatment Note PT-OP-A Visit Information Start: 06/01/23 10:31 Freq: Status: Active Protocol: Document 07/26/23 08:18 NM (Rec: 07/26/23 09:01 NM [id number]) Out-Patient Physical Therapy Visit Information Visit Information Visit Type Discharge Summary Visit Start Time 08:18 Visit Stop Time 09:00 Visit Number 12 Evaluation Information Evaluation Date 06/01/23 PT-OP-B Current Condition Start: 06/01/23 10:31 Freq: Status: Active Protocol: Document 06/01/23 10:31 NM (Rec: 06/01/23 11:18 NM [id number]) Current Condition History of Current Condition Onset Date January 2023 Current Complaints L knee History of Current Condition Pt was working with her horse, when he got spooked. She jumped off the mounting block, landing on her L knee in standing. She felt off a pop on her L knee (landed on her feet) on the lateral side, with a varus force. It was swollen and she had limited weight bearing. Came to ED ( did x ray) in January, was given a knee ext brace to wear temporarily, which pt has not been wearing since January. She reports that her pain is intermittent but she still gets occasional pain laterally . She has worse pain walking down hill, unable to run (2 mi /day); she is able to run along side her horse but reports pain. Generally, she reports no pain overall, except in coming to stand is difficult from a squat. Reports popping with knee ext. She reports no instances of her knee buckling or giving out, but does report that sometimes her knee feels like it could. Prior Treatments and Tests L knee PMH: partial ACL tear ( still partial tear), meniscus bucket handle tear (repair), tibial plateau frx with screws ; gauthier's cyst (previous swollen) Radiographs 02/03/23: no acute fracture; no MRI performed Prior Functional Status Baseline Function- ADL's Independent Baseline Function- Mobility Independent Baseline Function- Gait run 2 mi/day (6-8 mi/wk) Baseline Function- Recreation/Hobbies Rides horses Current Functional Impairments (Reported) Functional Limitations- Mobility/Gait unable to run, walk down hills , landing on LLE Functional Limitations- Recreation/ Able to ride horses but must Hobbies dismount on R knee PT-OP-C Subjective Start: 06/01/23 10:31 Freq: Status: Active Protocol: Document 07/26/23 08:18 NM (Rec: 07/26/23 09:01 NM [id number]) OP-PT Subjective Patient Comments Patient Comments Pt reports no knee pain or discomfort after last session. Ready to discharge PT-OP-E Functional Tests Start: 06/01/23 10:31 Freq: Status: Active Protocol: Document 06/01/23 10:31 NM (Rec: 06/01/23 11:18 NM [id number]) Functional Tests Squat Test Score 10 B squats Comments able to perform deep squat but min pain, knee valgus, heels rise Single Leg Squat Test Score x1 LLE (RLE minimal valgus, better stability, no opposite hip drop) Comment no knee pain reported, demos knee valgus, foot pronation, R hip drop Other Single Leg Stance Score 25 sec LLE Comment demos valgus, mod instability at ankle (RLE 5 sec, more unstable) PT-OP-F Manual Assessment Start: 06/01/23 10:31 Freq: Status: Active Protocol: Document 06/01/23 10:31 NM (Rec: 06/01/23 11:18 NM [id number]) Manual Assessments Soft Tissue Assessment Soft Tissue Mobility Assessment Demos tenderness at posterior knee (hx of gauthier's cyst) with slight, palpable bulge. Joint Mobility Assessment Joint Mobility Assessment No valgus instability, minimal varus instability compared to R knee. Tenderness of L knee lateral joint line. Demos palpable/audible clicking with flexion/extension. No anterior or posterior instability of L knee, comparable to R knee. PT-OP-G Mobility & Gait Start: 06/01/23 10:31 Freq: Status: Active Protocol: Document 06/01/23 10:31 NM (Rec: 06/01/23 11:18 NM [id number]) OP Gait Assessment Comments Gait Comments antalgic Stair Climbing Evaluation Comments Stair Climbing Comments Eccentric control of LLE decreased compared to RLE. Demos mild knee valgus with foot pronation with descent and decreased quad control. PT-OP-H Neuro Start: 06/01/23 10:31 Freq: Status: Active Protocol: Document 06/01/23 10:31 NM (Rec: 06/01/23 11:18 NM [id number]) Sensation Evaluation Gross Sensation Gross Sensation Left LE Impaired Comments Summary Comments Pt demos slightly decreased sensation along L side in L3-4 dermatomes compared to RLE. Intact but decreased PT-OP-J Posture/Palpation/Skin Start: 06/01/23 10:31 Freq: Status: Active Protocol: Document 06/01/23 10:31 NM (Rec: 06/01/23 11:18 NM [id number]) Posture Evaluation Position Standing Evaluation View Anterior Pelvis Posture Neutral Weight Distribution Weight Shifted Right Knee Posture (L) Neutral,(R) Neutral Palpation Assessment Location L knee Palpation Location posterior knee, lateral knee, anterior knee Palpation Findings Soft Tissue Tightness,Muscle Guarding,Tenderness Palpation Details Tenderness along ant knee at patellar tendon, minimal tenderness along lateral joint line. No tenderness along medial joint line. Min tenderness and palpable bulge behind L knee PT-OP-K Range of Motion Start: 06/01/23 10:31 Freq: Status: Active Protocol: Document 07/26/23 08:18 NM (Rec: 07/26/23 09:01 NM [id number]) Knee Goniometric Range of Motion Knee Left Knee ROM WFL Yes Patient Position Supine Flexion Active (degrees) 130 Flexion Passive (degrees) 135 Extension Active (degrees) 5 Extension Passive (degrees) 0 Comments pain with flex and ext, anahi quad set. Pain with overpressure into flex and ext 07/26/23: 135 deg flex, 0 deg ext, not painful 07/05/23: 0 deg active knee ext; minimal anterior knee pain with quad set PT-OP-L Special Tests Start: 06/01/23 10:31 Freq: Status: Active Protocol: Document 06/01/23 10:31 NM (Rec: 06/01/23 11:18 NM [id number]) Special Tests Knee Special Tests Posterior Draw Test Results negative Comments no excessive tibial translation Varus- 25 Degrees Test Results positive Comments minimal translation compared to RLE, no pain reported Varus- 0 Degrees Test Results negative Comments no excessive translation Valgus- 25 Degrees Test Results negative Comments no excessive translation Valgus- 0 Degrees Test Results negative Comments no excessive translation Thessaly Test 20 Degrees Test Results positive (L) Comments reproduces pain and catching in L knee Thessaly Test 5 Degrees Test Results positive (L) Comments reproduces pain and catching in L knee Farshad Test Test Results positive (L) Comments palpable and audible clicking Javed's Test Results negative Comments no excessive tibial translation Anterior Draw Test Results negative Comments no excessive tibial motion PT-OP-M Strength Start: 06/01/23 10:31 Freq: Status: Active Protocol: Document 07/26/23 08:18 NM (Rec: 07/26/23 09:01 NM [id number]) Knee Strength Knee Manual Muscle Testing Left Flexion (S2) 4- Good- Extension (L3) 4- Good- Comments Extension reproduces pain in posterior knee 07/05/23: 4/5 MMT; no pain with resisted flexion or extension 07/26/23: 4+/5 PT-OP-Q Treatments Start: 06/01/23 10:31 Freq: Status: Active Protocol: Document 07/26/23 08:18 NM (Rec: 07/26/23 09:01 NM [id number]) Therapeutic Exercises Sidelying Exercises Hip abd Sidelying Exercise Name reviewed for HEP, did not perform in session Standing Exercises calf stretch Standing Exercise Name 1. gastrocnemius, 2. soleus Side bilateral Equipment Used toes elevated on 4 step Reps/Minutes 2x30 ea split squat Side bilateral Equipment Used front leg elevated on dynadisc , dowel for UE support Reps/Minutes 2x10 ea Comments cued for control, improved with reps lunge Standing Exercise Name 1. walking fwd lunges, 2. lateral lunges Side bilateral Resistance 5# db for walking lunges Reps/Minutes 1. 2x20 ft, 2. 2x15 ea leg Comments improved control, slower motion; knee to ground w/o pain SL RDL Standing Exercise Name 1. single leg RDL with db pass , 2. SL RDL Side bilateral Resistance 5# db Equipment Used mirror for visual cues Reps/Minutes 5 sets ea x 10 ball passes per rep; 1x8 ea Comments challenging, but improved stability Wall sit Standing Exercise Name reviewed for HEP, did not perform Other Exercises rolling Other Exercise Name reviewed for HEP stretching Other Exercise Name 1. hamstring, 2. hip flexor, 3 . pigeon Side bilateral Equipment Used 2 step for hamstring, 1/2 kneel for hip flexor; on mat Reps/Minutes 1x30 ea Comments reports good feedback Self-Care/Home Management Treatment Education Patient Education Body Mechanics,Home Exercise Program,Joint Protection,Pain Management,Safety Other Education 8 minutes: Educated on safety during activities, utilizing good control and limiting activities that increase L knee clicking/popping or feelings of instability. Reviewed previous HEP, established final HEP. Educated on maintenance program at least 3x/wk, alternating exercises and performing stretching as needed. Educated on continuing modalities for pain relief prn, joint safety, following up with PCP if symptoms return or worsen. PT-OP-T Assessment and Plan Start: 06/01/23 10:31 Freq: Status: Active Protocol: Document 07/26/23 08:18 NM (Rec: 07/26/23 09:01 NM [id number]) Physical Therapy Assessment Goals Six Impairment strength, function Short Term Goal (STG) Pt will demonstrate improved eccentric control with eccentric step downs for at least 5 reps with <2/10 pain in order to demonstrate improved quad control, hip strength, and activity tolerance. 07/05/23: No pain with eccentric step down x5 reps from 6 step; demos knee valgus (has anterior knee pain with 8 step down) 07/12/23: GOAL MET 10 reps 6 step, 8 reps 8 step STG Duration 4 weeks MET 07/12/23 Senior Patient Account Representative Goal (LTG) Pt will demonstrate improved eccentric control with eccentric step downs for at least 10 reps with <2/10 pain in order to demonstrate improved quad control, hip strength, and activity tolerance. 07/12/23: GOAL MET 10 reps 6 step, 8 reps 8 step no pain. muscle tiring LTG Duration 8 weeks GOAL MET 07/12/23 Five Impairment strength Short Term Goal (STG) Pt will be able to perform at least 1 rep of single leg squats using good form and without knee valgus compensation in order to demonstrate improved quad control and hip strength for return to running. 07/05/23: 1 rep, demos knee valgus, ipsilateral hip drop STG Duration 4 weeks MET Assisted Goal (LTG) Pt will be able to perform at least 3 rep of single leg squats using good form and without knee valgus compensation in order to demonstrate improved quad control and hip strength for return to running. 07/23/23: to chair, no knee valgus, 2x10 w/o cueing or pain, minimal clicking but decreased with increased hip hinge 07/12/23: progression cues hip hinge 21 height. LTG Duration 8 weeks MET Four Impairment strength, function Short Term Goal (STG) Pt will demonstrate equal bilateral squats x5 reps without compensation in order to show improved L knee ROM, strength, and tolerance for ADLs. 07/05/23: Demos equal bilateral squat x 5 reps without cueing to chair; no pain 06/28/23: Demos slight translation to R side, decreased with tactile cueing at hips and mirror for visual feedback STG Duration 4 weeks MET Assisted Goal (LTG) Pt will demonstrate equal bilateral squats x10 reps without compensation in order to show improved L knee ROM, strength, and tolerance for ADLs. 07/15/23: 2x10 equal, bilateral squats without hip or knee compensation to 90 80 deg knee flex LTG Duration 8 weeks MET Three Impairment strength Short Term Goal (STG) Pt will improve L knee flex and ext MMT score to at least 4/5 in order to demonstrate improved strength required for ambulation, running, and stairs. 07/05/23: 4/5, no pain with resisted contraction STG Duration 4 weeks MET Senior Patient Account Representative Goal (LTG) Pt will improve L knee flex and ext MMT score to at least 4+/5 in order to demonstrate improved strength required for ambulation, running, and stairs. 07/23/23: 4+/5 LTG Duration 8 weeks MET Two Impairment ROM Senior Patient Account Representative Goal (LTG) Pt will increase L knee ext AROM to within 3 degrees of R knee extension for improved terminal knee extension during gait. 07/05/23: 0 deg ext, painful (2/ 10) LTG Duration 8 weeks MET One Impairment function Impairment LEFS: 68/80 Assisted Goal (LTG) Pt will increase LEFS score by at least 9 points (MCID) in order to demonstrate improved L knee function, ADL tolerance . 07/23/23: 75/80 07/05/23: 63/80 (decrease since IE due to increased pain currently) LTG Duration 8 weeks PARTIALLY MET Progress Towards Goals Progress Towards Goals Progressing Toward Goals,Goals Met Progress Comments Partially met LEFS, all other goals met Assessment Summary Assessment Pt tolerated session well. Session spent finalizing HEP for independent exercise as pt discharges today. Reviewed stretches, initiating pigeon stretch to pt tolerance for increased hip flexibility, address muscle imbalances. Pt progressed with forward walking lunges, able to perform with increased depth without L knee pain or clicking, in addition to improved muscular control. Continued with dynamic balance , hip/quad stabilization using dynadisc during lunges, split squats, and single leg RDLs. Pt with improved single leg balance, fewer instances of placing opposite foot on ground for stability during single leg RDLs. Pt has been seen since May 2022 for L knee pain. Pt has progressed toward goals, meeting all except LEFS. However, she reports no difficulty with ADLs/IADLs and is able to participate in nearly all recreational activities without limitation. Pt has consistently reported minimal to no L knee pain with any activity. PT educated pt on continuing to limit squat depth, ambulating on uneven surfaces, limit activities that bring about increased L knee clicking anahi if painful. Pt has not progressed to running yet, but is able to utilize elliptical and occasionally treadmill. Pt and PT discussed discharge today as pt has met goals and per pt request; PT and pt in agreement. PT educated pt on following up with PCP if symptoms return, increase, or worsen. PT educated pt on maintenance program 3x/wk, issued final HEP and reviewed past HEP. Pt verbalizes understanding. Pt safe to discharge to independent exercise. Physical Therapy Plan Frequency and Duration Frequency of Treatment 2x/Week Duration of treatment (weeks) 8 Plan of Care Start Date 06/01/23 Plan of Care End Date 07/27/23 Therapeutic Interventions Therapeutic Interventions Balance Training,Coordination Training,Gait Training,Home Exercise Program,Joint Mobilizations,Manual Therapy, Neuromuscular Re-education, Orthotic/Prosthetic Management ,Patient/Caregiver Education, Self-Care/Home Management, Sensory Integration,Soft Tissue Mobilization,Taping, Therapeutic Activities, Therapeutic Exercises Modalities Biofeedback,Cold Pack/Ice Massage,Electric Stimulation, Hot Packs,Infrared Therapy, Iontophoresis,Paraffin Bath, Ultrasound,Vasopneumatic Devices Other Referrals/Consults Referrals/Consults Recommended Referral to ortho depending on pt tolerance to exercise or increased reports of instability Discharge Physical Therapy Discharge Reasons Goals Met Discharge Comments Goals met and pt request Next Visit Focus/Plan Next Visit Plan Discharge from PT services
== END 2023-07-27 09:51 | disposition home or self-care (01) ==
LOC: PHYS 08:15
PROVIDERS: Family Provider Nurse Practitioner; PCP Nurse Practitioner; Referring Provider Physician Assistant; Visit Provider Physician Assistant
DX: S86.912A Strain of unspecified muscle(s) and tendon(s) at lower leg level, left leg, initial encounter (principal); M71.20 Synovial cyst of popliteal space [Baker], unspecified knee
CPT/HCPCS: 97110; 97112; 97140; 97162; 97535

== ENCOUNTER → 2023-11-24 08:55 | Outpatient (CLI) | payer MEDICARE, OTHER, SELFPAY ==
[2023-11-24 11:38] LABS: Free T3, Triiodothyronine Free 3.46 pg/mL (2.77-5.27); Free T4, Direct Thyroxine 0.87 ng/dL (0.78-2.19)
[2023-11-24 11:52] LABS: Thyroid Stimulating Hormone 3.31 uIU/mL (0.47-4.68)
== END ==
PROVIDERS: Family Provider Nurse Practitioner; PCP Nurse Practitioner; Referring Provider Nurse Practitioner; Visit Provider Nurse Practitioner
DX: D69.6 Thrombocytopenia, unspecified (principal); D72.819 Decreased white blood cell count, unspecified; M85.80 Other specified disorders of bone density and structure, unspecified site; E80.4 Gilbert syndrome; R79.89 Other specified abnormal findings of blood chemistry; E78.5 Hyperlipidemia, unspecified
CPT/HCPCS: 36415; 84439; 84443; 84481

== ENCOUNTER → 2024-08-14 09:38 | Outpatient (CLI) | payer MEDICARE, OTHER, SELFPAY ==
--- NOTE | 2024-08-14 09:40 | DI.MG.S_ITS ---
MM screening mammo BI: 08/14/2024. BI-RADS: 0 CLINICAL: 68-year old female for bilateral screening mammogram. Tyrer-Cuzick lifetime risk of 6.2%. No personal or first-degree family history of breast cancer. PRIOR EXAMS 01/25/2023, 12/25/2021. MAMMOGRAPHY TECHNIQUE: 2D and 3D (tomosynthesis) digital mammographic views obtained, with additional images as needed for full coverage. Current study was also evaluated with a Computer Aided Detection (CAD) system. DENSITY C. The breasts are heterogeneously dense, which may obscure small masses. MAMMOGRAPHY FINDINGS Right: No suspicious mass, asymmetry, microcalcification, or other abnormality seen. Left: MLO only, Upper, Middle depth: Asymmetry needing additional imaging evaluation. IMPRESSION: Right * No evidence of malignancy. Left (Asymmetry): MLO only, Upper, Middle depth * Incomplete - asymmetry needing additional imaging evaluation. RECOMMENDATIONS Left: MLO only, Upper, Middle depth * Further evaluation with diagnostic mammography and diagnostic ultrasound. OVERALL ASSESSMENT CATEGORY BI-RADS-0: Incomplete - Need Additional Imaging Evaluation. ELECTRONICALLY SIGNED: Ana Bella M.D. on 08/14/2024 at 06:40:49 PM PT Interpreting Station ID: [id number]
--- NOTE | 2024-08-14 09:40 | DI.RAD.S_ITS ---
PROCEDURE: XR DEXA AXIAL SKELETON INDICATIONS: Osteopenia COMPARISON: [facility], , XR DEXA AXIAL SKELETON, 06/22/2022, 15:45. FINDINGS: Lumbar Spine: Bone mineral density 1.023 g/cm2, T score 0.1, unchanged. Left Femoral Neck: Bone mineral density 0.667 g/cm2, T score -1.6, compared to -1.4. Left Hip: Bone mineral density 0.794 g/cm2, T score -1.2, compared to -1.3. Fracture Risk Calculation (when applicable): 10-year fracture risk of a major osteoporotic fracture 16 percent and of a hip fracture 2.1 percent. (T score greater or equal to -1.0 to: NORMAL) (T score from -1.1 to -2.4: OSTEOPENIA) (T score less than or equal to -2.5: OSTEOPOROSIS) IMPRESSION: [id number] osteopenia in the left femoral neck slightly progressive. Follow-up guidelines as follows: Osteoporosis: Consider a repeat DEXA and Vertebral Fracture Assessment (VFA) exam in 2 years or sooner if medically necessary, to reassess this patient's status. Osteopenia: Consider a repeat DEXA in 2-3 years to reassess this patient's status, or if there is a new clinical indication. Normal: Consider a repeat DEXA in 5 years or sooner, or if there is a new clinical indication. All treatment decisions require clinical judgment and consideration of individual patient factors, including patient preferences, comorbidities, previous drug use, risk factors not captured in the FRAX model (e.g., frailty, falls, vitamin D deficiency, increased bone turnover, interval significant decline in bone density ) and possible under- or over-estimation of fracture risk by FRAX. In addition, the NOF Guide recommends that FDA-approved medical therapies be considered in postmenopausal women and men age >= 50 years with a: * Hip or vertebral (clinical or morphometric) fracture * T-score of <=-2.5 at the spine or hip * Ten-year fracture probability by FRAX of >= 3% for hip fracture or >=20% for major osteoporotic fracture. Dictated by: Irma Alberts M.D. on 08/14/2024 at 15:41 Approved by: Irma Alberts M.D. on 08/14/2024 at 15:42
== END ==
PROVIDERS: Family Provider Nurse Practitioner; PCP Family Medicine; Referring Provider Family Medicine; Visit Provider Family Medicine
DX: M85.852 Other specified disorders of bone density and structure, left thigh (principal); Z12.31 Encounter for screening mammogram for malignant neoplasm of breast; R92.333 Mammographic heterogeneous density, bilateral breasts; Z78.0 Asymptomatic menopausal state
CPT/HCPCS: 77063; 77067; 77080

== ENCOUNTER → 2024-08-22 08:29 | Outpatient (CLI) | payer MEDICARE, OTHER, SELFPAY ==
[2024-08-22 09:20] LABS: Add Manual Diff / Slide Review NO; Basophils Absolute Auto 0 /uL (0-100); Basophils Percent Auto 0.7 % (0-2); Eosinophils Absolute Auto 0 /uL (0-450); Eosinophils Percent Auto 0.9 % (2-4); Hematocrit 39.6 % (36-46); Hemoglobin 13.8 g/dL (12.0-16.0); Lymphocytes Absolute Auto 1200 /uL (1100-4500); Lymphocytes Percent Auto 23.9 % (25-40); Mean Corpuscular Volume 91.6 fL (80-100); Monocytes Absolute Auto 400 /uL (0-900); Monocytes Percent Auto 7.7 % (3-14); Neutrophils Absolute Auto 3200 /uL (1500-7000); Neutrophils Percent Auto 66.8 % (50-75); Platelet Count 130 X10^3/uL (150-400); Red Blood Cell Count 4.32 X10^6/uL (4.0-5.2); Red Cell Distribution Width 12.3 % (11.6-14.8); White Blood Cell Count 4.8 X10^3/uL (4.5-11.0)
[2024-08-22 09:40] LABS: HEMOLYSIS < 15 (0-50); Iron 103 ug/dL (37-170)
[2024-08-22 09:43] LABS: Alanine Aminotransferase 22 IU/L (<35); Albumin 4.3 g/dL (3.5-5.0); Alkaline Phosphatase 44 U/L (38-126); Aspartate Aminotransferase 31 IU/L (14-36); BUN Creatinine Ratio 19.1 (6-22); Bilirubin Total 1.6 mg/dL (0.2-1.3); Blood Urea Nitrogen 13 mg/dL (7-17); Carbon Dioxide 26 mmol/L (22-32); Chloride 103 mmol/L (98-107); Cholesterol 188 mg/dL (140-199); Estimated Glomerular Filt Rate > 60 mL/min (>60); Globulin 2.2 g/dL (1.7-4.1); Glucose 93 mg/dL (80-110); HDL Cholesterol 65 mg/dL (40-60); HEMOLYSIS < 15 (0-50); LDL Cholesterol Calculated 105 mg/dL (<100); Sodium 137 mmol/L (137-145); Total Protein 6.5 g/dL (6.3-8.2); Triglycerides 90 mg/dL (35-150)
[2024-08-22 09:49] LABS: Rheumatoid Factor < 8.6 IU/mL (<12.0)
[2024-08-22 09:53] LABS: Percent Iron Saturation 34 % (15-50); Total Iron Binding Capacity 302 ug/dL (265-497); Transferrin 249 mg/dL (206-381)
[2024-08-26 14:11] LABS: ANA Screen, IFA Negative (.)
== END ==
PROVIDERS: Family Provider Nurse Practitioner; PCP Family Medicine; Referring Provider Family Medicine; Visit Provider Family Medicine
DX: D69.9 Hemorrhagic condition, unspecified (principal); E78.00 Pure hypercholesterolemia, unspecified; D69.6 Thrombocytopenia, unspecified; E80.4 Gilbert syndrome; R79.89 Other specified abnormal findings of blood chemistry; L60.9 Nail disorder, unspecified; I73.01 Raynaud's syndrome with gangrene; Z79.890 Hormone replacement therapy
CPT/HCPCS: 36415; 80053; 80061; 83540; 83550; 85025; 86038; 86430

== ENCOUNTER → 2025-02-27 19:15 | Outpatient (ROUT) | payer MEDICARE, OTHER, SELFPAY | PROVIDERS: Family Provider Nurse Practitioner; PCP Family Medicine; Visit Provider Registered Nurse | DX: L03.90 Cellulitis, unspecified (principal); R21 Rash and other nonspecific skin eruption; Z79.899 Other long term (current) drug therapy | CPT/HCPCS: 87252 ==